=== PATIENT | female | born 1950 | race Caucasian/White ===

== ENCOUNTER 2017-01-07 14:35 | Inpatient (IN) | payer MEDICARE ==
[~2017-01-07] VITALS: Ht 165.1 cm; Wt 90.9 kg
[2017-01-07 14:37] VITALS: BP 146/65; PULSE 79; RESP 24; TEMP 98.6; O2SAT 97
--- NOTE | 2017-01-07 14:58 | PD ---
Physical Exam Time Seen by Provider: 14:57 Narrative 66 y/o female sent by pcp for low hemoglobin- 6.5. Vital signs reviewed. seen at triage desk. Awaiting bed placement. Data Data Last Documented VS Vital Signs Date Time Temp Pulse Resp B/P Pulse Ox O2 Delivery O2 Flow Rate FiO2 01/07/17 14:37 98.6 79 24 146/65 97 Room Air MDM Medical Record Reviewed: Yes Supervised Visit with REBEKA: Jose Person Jan 07, 2017 14:58
--- NOTE | 2017-01-07 17:38 | PD ---
HPI Chief Complaint: Abnormal Results Time Seen by Provider: 17:37 Travel History International Travel<30 days: No Contact w/Intl Traveler<30days: No Traveled to known affect area: No History of Present Illness HPI 66-year-old female with a history of rectal bleeding, anemia, COPD, CHF, hypertension, breast cancer presents to the emergency department for evaluation of low hemoglobin, sent by her primary care physician. Patient states she has a slowly correctly. She states they're unable to fix the Vee do major surgery and for a colostomy and. She states that she was getting iron transfusions. Her last iron transfusion was done in May 2016. She moved down here in [place] 2016 and has not had one since. She states that her last blood his seizure was July 2015. She states she feels dizzy and weak which has been ongoing for months. She states these are her typical symptoms of anemia. Patient is on oxygen, 2 L nasal cannula, chronically for COPD. patient does state she has had black stools for the past 2 days. PFSH Past Medical History Cardiovascular Problems: Yes Respiratory: Yes Social History Alcohol Use: No Tobacco Use: No Substance Use: No Allergies-Medications (Allergen,Severity, Reaction): Coded Allergies: Contrast Media (Verified Allergy, Severe, Anaphylaxis, 01/07/17) Reported Meds & Prescriptions Reported Meds & Active Scripts Active Reported Montelukast (Montelukast Sodium) 10 Mg Tab 10 Mg PO HS Lisinopril 20 Mg Tab 20 Mg PO DAILY Amlodipine (Amlodipine Besylate) 5 Mg Tab 5 Mg PO DAILY @ [address] (Duloxetine HCl) 30 Mg Capdr 30 Mg PO DAILY @ [address] (Duloxetine HCl) 60 Mg Capdr 60 Mg PO DAILY Quetiapine (Quetiapine Fumarate) 400 Mg Tab 400 Mg PO HS Lamotrigine 100 Mg Tab 100 Mg PO BID Pantoprazole (Pantoprazole Sodium) 40 Mg Tab 40 Mg PO BID Primidone 50 Mg Tab 50 Mg PO BID Anoro Ellipta Inh (Umeclidinium/Vilanterol) 62.5-25 Mcg/Act Aero 1 Puff INH DAILY Clonidine (Clonidine HCl) 0.1 Mg Tab 0.1 Mg PO DIRECTED PRN Simvastatin 40 Mg Tab 40 Mg PO HS Carvedilol 25 Mg Tab 25 Mg PO BID Review of Systems Except as stated in HPI: all other systems reviewed are Neg Physical Exam Narrative GENERAL: Well-nourished, well-developed female patient, afebrile. Patient is on 2 L O2 nasal cannula. SKIN: Focused skin assessment warm/dry. HEAD: Normocephalic. Atraumatic. EYES: No scleral icterus. No injection or drainage. NECK: Supple, trachea midline. No JVD or lymphadenopathy. CARDIOVASCULAR: Regular rate and rhythm without murmurs, gallops, or rubs. RESPIRATORY: Breath sounds equal bilaterally. No accessory muscle use. Lungs sounds are clear to auscultation. GASTROINTESTINAL: Abdomen soft, non-tender, nondistended. MUSCULOSKELETAL: No cyanosis, or edema. BACK: Nontender without obvious deformity. No CVA tenderness. RECTAL EXAM: No masses or tenderness, stool is brown. I was able to get a minimal sample. Hemoccult was slightly positive. This exam was done with ORLANDO Nguyen, at bedside. Data Data Last Documented VS Vital Signs Date Time Temp Pulse Resp B/P Pulse Ox O2 Delivery O2 Flow Rate FiO2 01/07/17 19:08 68 18 168/70 100 Room Air 01/07/17 18:16 3 01/07/17 14:37 98.6 Orders Complete Blood Count With Diff (01/07/17 17:34) Comprehensive Metabolic Panel (01/07/17 17:34) Prothrombin Time / Inr (Pt) (01/07/17 17:34) Act Partial Throm Time (Ptt) (01/07/17 17:34) Urinalysis - C+S If Indicated (01/07/17 17:34) Type And Screen (01/07/17 17:34) Chest, Single Ap (01/07/17 17:34) Ecg Monitoring (01/07/17 17:34) Iv Access Insert/Monitor (01/07/17 17:34) Oximetry (01/07/17 17:34) Red Blood Cells (Rbc) (01/07/17 18:39) Blood Product Administration .UPON TRANSFUSION (01/07/17 18:39) Sodium Chlor 0.9% 250 Ml Inj (Ns 250 Ml (01/07/17 18:45) Pantoprazole Inj (Protonix Inj) (01/07/17 18:45) Admit Order (Ed Use Only) (01/07/17 19:17) Diet Heart Healthy (01/07/17 Dinner) Labs Laboratory Tests Test 01/07/17 01/07/17 17:55 18:40 White Blood Count 7.0 TH/MM3 Red Blood Count 2.71 MIL/MM3 Hemoglobin 6.2 GM/DL Hematocrit 19.6 % Mean Corpuscular Volume 72.4 FL Mean Corpuscular Hemoglobin 22.9 PG Mean Corpuscular Hemoglobin 31.7 % Concent Red Cell Distribution Width 18.6 % Platelet Count 258 TH/MM3 Mean Platelet Volume 7.2 FL Neutrophils (%) (Auto) 64.1 % Lymphocytes (%) (Auto) 22.7 % Monocytes (%) (Auto) 10.3 % Eosinophils (%) (Auto) 2.1 % Basophils (%) (Auto) 0.8 % Neutrophils # (Auto) 4.5 TH/MM3 Lymphocytes # (Auto) 1.6 TH/MM3 Monocytes # (Auto) 0.7 TH/MM3 Eosinophils # (Auto) 0.1 TH/MM3 Basophils # (Auto) 0.1 TH/MM3 CBC Comment DIFF FINAL Differential Comment Prothrombin Time 11.0 SEC Prothromb Time International 1.0 RATIO Ratio Activated Partial 25.2 SEC Thromboplast Time Sodium Level 134 MEQ/L Potassium Level 4.4 MEQ/L Chloride Level 98 MEQ/L Carbon Dioxide Level 33.6 MEQ/L Anion Gap 2 MEQ/L Blood Urea Nitrogen 12 MG/DL Creatinine 0.77 MG/DL Estimat Glomerular Filtration 75 ML/MIN Rate Random Glucose 82 MG/DL Calcium Level 8.5 MG/DL Total Bilirubin 0.2 MG/DL Aspartate Amino Transf 10 U/L (AST/SGOT) Alanine Aminotransferase 12 U/L (ALT/SGPT) Alkaline Phosphatase 88 U/L Total Protein 6.9 GM/DL Albumin 3.4 GM/DL Urine Color LIGHT-YELLOW Urine Turbidity CLEAR Urine pH 6.5 Urine Specific [place] 1.009 Urine Protein NEG mg/dL Urine Glucose (UA) NEG mg/dL Urine Ketones NEG mg/dL Urine Occult Blood NEG Urine Nitrite NEG Urine Bilirubin NEG Urine Urobilinogen LESS THAN 2.0 MG/DL Urine Leukocyte Esterase NEG Urine RBC 1 /hpf Urine WBC 1 /hpf Urine Squamous Epithelial <1 /hpf Cells Microscopic Urinalysis Comment CULT NOT INDICATED MDM Medical Decision Making Medical Screen Exam Complete: Yes Emergency Medical Condition: Yes Medical Record Reviewed: Yes Interpretation(s) Last Impressions Chest X-Ray 01/07/17 4544 Signed Impressions: Service Date/Time: January 17:38 - CONCLUSION: 1. Left subclavian port, as above. 2. No acute cardiopulmonary disease. Rao Almazan MD Differential Diagnosis Anemia versus upper GI bleed versus lower GI bleed versus electrolyte abnormality Narrative Course 66-year-old female sent by her primary care physician for low hemoglobin presents to the emergency department. Patient reports history of GI bleed. She was on iron transfusions, but has not had one since May 2016 due to moving. CBC shows hemoglobin 6.2, hematocrit 19.6. CMP shows no acute abnormality. Coags are unremarkable. UA is negative for infection. Chest x- ray shows left subclavian port, as above; No acute cardiopulmonary disease. Patient is given Protonix 40 mg IV. 2 units PRBCs are ordered and pending. Dr. Cason accepted admission. [facility] Point of Care Internal Pos. & Neg. Controls: Passed Fecal Specimen Occult Blood: Positive Diagnosis Primary Impression: Symptomatic anemia Additional Impression: GI bleed Qualified Code: K92.2 - Gastrointestinal hemorrhage, unspecified gastrointestinal hemorrhage type Admitting Information Admitting Physician Requests: Admit Indu Forbes Jan 07, 2017 17:38
--- NOTE | 2017-01-07 18:05 | RADRPT ---
EXAM DATE/TIME: 01/07/2017 17:38 [facility] COMPARISON: No previous studies available for comparison. INDICATIONS : Abnormal labwork. Patient short of breath. MEDICAL HISTORY : Chronic obstructive pulmonary disease. SURGICAL HISTORY : Port. ENCOUNTER: Initial ACUITY: 1 day PAIN SCORE: 0/10 LOCATION: Bilateral chest FINDINGS: Left subclavian [id number] which appears looped in the region of the central subclavian vein with tip projecting at the junction of the subclavian and SVC. No focal pleural or parenchymal opacities. Cardiomediastinal contours are within normal limits given portable technique. Surgical clips in the r ight axilla. Bony thorax is intact CONCLUSION: 1. Left subclavian port, as above. 2. No acute cardiopulmonary disease. Rao Almazan MD on January 07, 2017 at 18:02 Board Certified Radiologist. This report was verified electronically.
[2017-01-07 18:13] LABS: AUTOMATED NEUTROPHIL # 4.5 TH/MM3 (1.8-7.7); BASOPHIL # 0.1 TH/MM3 (0-0.2); BASOPHIL % 0.8 % (0.0-2.0); EOSINOPHIL # 0.1 TH/MM3 (0-0.4); EOSINOPHIL % 2.1 % (0.0-4.0); LYMPH % 22.7 % (9.0-44.0); LYMPHOCYTE # 1.6 TH/MM3 (1.0-4.8); MEAN CELL VOLUME 72.4 FL (80.0-100.0); MEAN CORPUSCULAR HEMOGLOBIN 22.9 PG (27.0-34.0); MEAN CORPUSCULAR HGB CONC 31.7 % (32.0-36.0); MONO % 10.3 % (0.0-8.0); NEUT % 64.1 % (16.0-70.0); PLATELET COUNT 258 TH/MM3 (150-450); RED BLOOD COUNT 2.71 MIL/MM3 (4.00-5.30); RED CELL DISTRIBUTION WIDTH 18.6 % (11.6-17.2)
[2017-01-07 18:16] VITALS: O2SAT 99
[2017-01-07 18:21] LABS: HEMO FLAGS DIFF FINAL
[2017-01-07 18:24] LABS: APTT (PATIENT) 25.2 SEC (24.3-30.1)
[2017-01-07 18:26] LABS: ANION GAP 2 MEQ/L (5-15); AST (GOT) 10 U/L (15-37); BICARBONATE 33.6 MEQ/L (21.0-32.0); BLOOD UREA NITROGEN 12 MG/DL (7-18); CHLORIDE 98 MEQ/L (98-107); GLOMERULAR FILTRATION RATE 75 ML/MIN (>89); POTASSIUM 4.4 MEQ/L (3.5-5.1); SODIUM (NA) 134 MEQ/L (136-145)
[2017-01-07 18:27] LABS: ALT (GPT) 12 U/L (10-53)
[2017-01-07] MEDS ORDERED: SIMV40TA PO (18:27)
[2017-01-07] MEDS ORDERED: DULO1CAP2 PO (18:27)
[2017-01-07] MEDS ORDERED: QUET1TAB11 PO (18:27)
[2017-01-07] MEDS ORDERED: CLON0.1T PO (18:27)
[2017-01-07] MEDS ORDERED: DULO1CAP3 PO (18:27)
[2017-01-07] MEDS ORDERED: UMEC1AER INH (18:27)
[2017-01-07] MEDS ORDERED: LAMO100T PO (18:27)
[2017-01-07] MEDS ORDERED: AMLO5TAB2 PO (18:27)
[2017-01-07] MEDS ORDERED: PRIM50TA5 PO (18:27)
[2017-01-07] MEDS ORDERED: PANT40TA3 PO (18:27)
[2017-01-07] MEDS ORDERED: CARV25TA PO (18:27)
[2017-01-07 18:28] LABS: HEMATOCRIT 19.6 % (35.0-46.0)
[2017-01-07 18:29] LABS: ALKALINE PHOSPHATASE 88 U/L (45-117); TOTAL BILIRUBIN ADULT 0.2 MG/DL (0.2-1.0)
[2017-01-07] MEDS ORDERED: LISI-515 PO (18:31)
[2017-01-07] MEDS ORDERED: MONT10TA4 PO (18:31)
[2017-01-07] MEDS ORDERED: SODIUM CHLOR 0.9% 250 ML INJ 250 ML IV ONE (18:45)
[2017-01-07] MEDS ORDERED: PANTOPRAZOLE SODIUM 40 MG VIAL IV PUSH ONE (18:45)
[2017-01-07 19:08] VITALS: BP 168/70; PULSE 68; RESP 18; O2SAT 100
[2017-01-07 19:11] LABS: BLOOD, URINE NEG (NEG); GLUCOSE,URINE NEG (NEG); KETONE, URINE NEG (NEG); NITRITE,URINE NEG (NEG); PH, URINE 6.5 (5.0-8.5); SQUAMOUS EPITHELIAL CELL URINE <1 /hpf (0-5); URINE COLOR LIGHT-YELLOW (YELLW/STRAW)
[2017-01-07 19:28] LABS: COMMENT (UR) CULT NOT INDICATED; CULTURE IF INDICATED CULT NOT INDICATED
[2017-01-07] MEDS ORDERED: LACTULOSE SYRUP 20 GM/30 ML CUP PO PRN (19:30)
[2017-01-07] MEDS ORDERED: ACETAMINOPHEN/HYDROcodone 325 MG/5 MG TAB PO PRN (19:30)
[2017-01-07] MEDS ORDERED: ACETAMINOPHEN 325 MG TAB PO PRN (19:30)
[2017-01-07] MEDS ORDERED: SENNOSIDES 8.6 MG TAB PO PRN (19:30)
[2017-01-07] MEDS ORDERED: BISACODYL 10 MG SUPP RECTAL PRN (19:30)
[2017-01-07] MEDS ORDERED: ONDANSETRON HCL 4 MG/2 ML VIAL IVP PRN (19:30)
[2017-01-07] MEDS ORDERED: SODIUM CHLORIDE 0.9% FLUSH 10 ML FLUSH IV FLUSH PRN (19:30)
[2017-01-07] MEDS ORDERED: MAGNESIUM HYDROXIDE SUSP 30 ML CUP PO PRN (19:30)
--- NOTE | 2017-01-07 19:34 | HHI.HP ---
[facility] Casey Corbett, Admission Diagnosis anemia, GI bleed Diagnoses: (1) GI bleed Diagnosis: Principal (2) Symptomatic anemia Diagnosis: Principal (3) Dehydration Diagnosis: Principal (4) COPD (chronic obstructive pulmonary disease) Diagnosis: Principal (5) HTN (hypertension) Diagnosis: Principal Travel History International Travel<30 Days: No Contact w/Intl Traveler <30 Da: No Traveled to Known Affected Are: No History of Present Illness This is a 66-year-old female with a PMH of HTN, Bipolar Disorder, COPD, O2 Dependent, CHF (Unknown EF), Breast CA, h/o GI Bleed, Chronic Anemia and Diverticulitis who was sent to the ER by her PCP secondary to Hgb 6.2. Pt without complaints at this time except reports dark stool x2-3 days. Recently moved to [facility] from [place], was following w/ GI and Hematology for h/o GI Bleed and Anemia. S/p EGD/Colonoscopy and Pill Endoscopy in the past, however states no clear source of bleed was ever identified, thought to have bleed secondary to recurrent Colitis, s/p multiple transfusions and receiving IV Iron , last infusion May 2016. No further infusions since then, on Iron PO. On arrival, BP 146/65, HR 79, O2 sat 97% on RA, Afebrile. Hgb 6.2. GFR 75. INR 1.0. UA negative. CXR left subclavian port, no acute findings. + Hemoccult on exam. S/p Protonix IV x1, 2u pRBC ordered in ER, pending transfusion. Review of Systems Except as stated in HPI: all other systems reviewed are Neg ROS: 14 point review of systems otherwise negative. Past Family Social History Past Medical History PMH: HTN, COPD, O2 Dependent, Bipolar Disorder, CHF (Unknown EF), Breast CA, h/ o GI Bleed, Chronic Anemia and Diverticulitis Past Surgical History PAST SURGICAL HISTORY: Tonsillectomy, Cholecystectomy, Tubal Ligation, Bilateral Hip Replacement Allergies: Coded Allergies: Contrast Media (Verified Allergy, Severe, Anaphylaxis, 01/07/17) Family History PAST FAMILY HISTORY: Reviewed. No h/o DM or CAD Social History PAST SOCIAL HISTORY: Negative for alcohol, tobacco or drugs. Physical Exam Vital Signs Vital Signs Date Time Temp Pulse Resp B/P Pulse Ox O2 Delivery O2 Flow Rate FiO2 01/07/17 19:08 68 18 168/70 100 Room Air 01/07/17 18:16 99 Nasal Cannula 3 01/07/17 18:16 66 22 97 Nasal Cannula 3 01/07/17 14:37 98.6 79 24 146/65 97 Room Air Physical Exam PE: GENERAL: Very pleasant middle-aged white female in no acute distress. Daughter at bedside. HEENT: PERRLA, EOMI. No scleral icterus or conjunctival pallor. No lid lag or facial droop. CARDIOVASCULAR: Regular rate and rhythm. No obvious murmurs to auscultation. No chest tenderness to palpation. RESPIRATORY: No obvious rhonchi or wheezing. Clear to auscultation. Breath sounds equal bilaterally. GASTROINTESTINAL: Abdomen soft, non-tender, nondistended. BS normal. MUSCULOSKELETAL: Extremities without clubbing, cyanosis, or edema. No obvious deformities. NEUROLOGICAL: Awake, alert and oriented x4. No focal neurologic deficits. Moving both upper and lower extremities spontaneously. Laboratory Laboratory Tests Test 01/07/17 01/07/17 17:55 18:40 White Blood Count 7.0 Red Blood Count 2.71 Hemoglobin 6.2 Hematocrit 19.6 Mean Corpuscular Volume 72.4 Mean Corpuscular Hemoglobin 22.9 Mean Corpuscular Hemoglobin 31.7 Concent Red Cell Distribution Width 18.6 Platelet Count 258 Mean Platelet Volume 7.2 Neutrophils (%) (Auto) 64.1 Lymphocytes (%) (Auto) 22.7 Monocytes (%) (Auto) 10.3 Eosinophils (%) (Auto) 2.1 Basophils (%) (Auto) 0.8 Neutrophils # (Auto) 4.5 Lymphocytes # (Auto) 1.6 Monocytes # (Auto) 0.7 Eosinophils # (Auto) 0.1 Basophils # (Auto) 0.1 CBC Comment DIFF FINAL Differential Comment Prothrombin Time 11.0 Prothromb Time International 1.0 Ratio Activated Partial 25.2 Thromboplast Time Sodium Level 134 Potassium Level 4.4 Chloride Level 98 Carbon Dioxide Level 33.6 Anion Gap 2 Blood Urea Nitrogen 12 Creatinine 0.77 Estimat Glomerular Filtration 75 Rate Random Glucose 82 Calcium Level 8.5 Total Bilirubin 0.2 Aspartate Amino Transf 10 (AST/SGOT) Alanine Aminotransferase 12 (ALT/SGPT) Alkaline Phosphatase 88 Total Protein 6.9 Albumin 3.4 Urine Color LIGHT-YELLOW Urine Turbidity CLEAR Urine pH 6.5 Urine Specific [place] 1.009 Urine Protein NEG Urine Glucose (UA) NEG Urine Ketones NEG Urine Occult Blood NEG Urine Nitrite NEG Urine Bilirubin NEG Urine Urobilinogen LESS THAN 2.0 Urine Leukocyte Esterase NEG Urine RBC 1 Urine WBC 1 Urine Squamous Epithelial <1 Cells Microscopic Urinalysis Comment CULT NOT INDICATED Result Diagram: 01/07/17175401/07/171754 Assessment and Plan Problem List: (1) GI bleed ICD Code: K92.2 Status: Acute (2) Symptomatic anemia ICD Code: D64.9 Status: Acute (3) Dehydration ICD Code: E86.0 Status: Acute (4) COPD (chronic obstructive pulmonary disease) ICD Code: J44.9 Status: Acute (5) HTN (hypertension) ICD Code: I10 Status: Acute Assessment and Plan A/P: 1. GI Bleed: H/o GI Bleed, +melena x2-3 days, +Hemoccult on exam, Hgb 6.2. S/ p Protonix IV x1 in ER, 2u pRBC ordered, pending transfusion. Start Protonix gtt. Consult GI, check Hgb/Hct after transfusion. 2. Anemia: H/o Chronic Anemia requiring transfusion/Iron infusions in the past , currently on PO Iron. Hgb 6.2 as above, previously following w/ Hematology in [place]. Will need to establish care w/ Hematology here. Monitor Hgb/Hct. 3. Dehydration: GFR 75. Check U/a. IVF for hydration, repeat labs in am. 4. COPD: Chronic Respiratory Failure. Stable. O2 Dependent, on 2L NC, will continue. Resume home medications. DuoNeb prn. 5. HTN: BP 140-160's while in ER, resume home medications. Monitor BP. 6. DVT Prophylaxis: SCD/Teds. Pharmacologic contraindication secondary to GI Bleed 7. Social work for d/c planning as needed. 8. Case discussed w/ ER physician at length. Physician Certification 2 Midnight Certification Type: Admission for Inpatient Services Order for Inpatient Services The services are ordered in accordance with Medicare regulations or non- Medicare payer requirements, as applicable. In the case of services not specified as inpatient-only, they are appropriately provided as inpatient services in accordance with the 2-midnight benchmark. Estimated LOS (days): 2 days is the estimated time the patient will need to remain in the hospital, assuming treatment plan goals are met and no additional complications. Post-Hospital Plan: Not yet determined Problem Qualifiers (1) GI bleed: Qualified Code: K92.2 - Gastrointestinal hemorrhage, unspecified gastrointestinal hemorrhage type Afia Cason MD Jan 07, 2017 19:34
[2017-01-07 20:20] VITALS: BP 171/67; PULSE 75; RESP 18; O2SAT 100
[2017-01-07] MEDS: SODIUM CHLORIDE 0.9% FLUSH 10 ML FLUSH IV FLUSH SCH (21:00)
[2017-01-07 21:10] VITALS: BP 169/74; PULSE 69; RESP 18; TEMP 98.1; O2SAT 100
[2017-01-07 21:25] VITALS: BP 167/72; PULSE 70; RESP 18; TEMP 98.4; O2SAT 100
[2017-01-08] VITALS (12 sets, daily range): BP systolic 94–182; BP diastolic 55–104; PULSE 57–82; RESP 16–20; TEMP 97.3–98.4; O2SAT 95–100
[2017-01-08] MEDS: DOCUSATE SODIUM 50 MG/SENNA 8.6 MG TAB PO SCH ×3 (00:08→21:00)
[2017-01-08] MEDS: PRAVASTATIN SOD 80 MG TAB PO SCH ×2 (00:08→21:46)
[2017-01-08] MEDS: CARVEDILOL 12.5 MG TAB PO SCH ×3 (00:08→21:46)
[2017-01-08] MEDS: lamoTRIgine 100 MG TAB PO SCH ×3 (00:08→21:46)
[2017-01-08] MEDS: MONTELUKAST SODIUM 10 MG TAB PO SCH ×2 (00:08→21:46)
[2017-01-08] MEDS: PANTOPRAZOLE INJ 80 MG in SODIUM CHLORIDE 0.9% INJ 100 ML IV SCH ×3 (00:33→16:37)
[2017-01-08] MEDS: QUEtiapine FUMARATE 200 MG TAB PO SCH ×2 (00:34→21:46)
[2017-01-08] MEDS: PRIMIDONE 50 MG TAB PO SCH ×3 (00:34→21:46)
[2017-01-08 08:54] LABS: AUTOMATED NEUTROPHIL # 5.2 TH/MM3 (1.8-7.7); BASOPHIL # 0.1 TH/MM3 (0-0.2); BASOPHIL % 0.6 % (0.0-2.0); EOSINOPHIL # 0.2 TH/MM3 (0-0.4); HEMATOCRIT 26.3 % (35.0-46.0); HEMO FLAGS DIFF FINAL; LYMPH % 22.6 % (9.0-44.0); LYMPHOCYTE # 1.8 TH/MM3 (1.0-4.8); MEAN CELL VOLUME 76.1 FL (80.0-100.0); MEAN CORPUSCULAR HGB CONC 32.8 % (32.0-36.0); MONO % 10.7 % (0.0-8.0); NEUT % 64.1 % (16.0-70.0); PLATELET COUNT 241 TH/MM3 (150-450); RED BLOOD COUNT 3.45 MIL/MM3 (4.00-5.30); RED CELL DISTRIBUTION WIDTH 20.1 % (11.6-17.2); WHITE BLOOD COUNT 8.1 TH/MM3 (4.0-11.0)
[2017-01-08] MEDS: UMECLIDINIUM 62.5 MCG/VILANTEROL 25 MCG INHALER INH SCH (09:00)
[2017-01-08 09:14] LABS: ANION GAP 6 MEQ/L (5-15); AST (GOT) 11 U/L (15-37); BICARBONATE 33.4 MEQ/L (21.0-32.0); BLOOD UREA NITROGEN 13 MG/DL (7-18); CHLORIDE 98 MEQ/L (98-107); GLOMERULAR FILTRATION RATE 82 ML/MIN (>89); POTASSIUM 4.1 MEQ/L (3.5-5.1); SODIUM (NA) 137 MEQ/L (136-145)
[2017-01-08 09:17] LABS: ALKALINE PHOSPHATASE 84 U/L (45-117); ALT (GPT) 12 U/L (10-53); TOTAL BILIRUBIN ADULT 0.4 MG/DL (0.2-1.0)
--- NOTE | 2017-01-08 10:36 | PD.CONS ---
HPI History of Present Illness This is a 66 year old female who recently located from [place] to this area and is in the process of getting established with gastroenterology, pulmonology , and hematology. She reports that she has a long history of intermittent GI bleeding consisting of melena. She has had an extensive workup in the past including EGD, colonoscopy, and capsule endoscopy. She states that her boot and shoe repairman feels that she has a slow bleed, likely related to ischemic colitis. She was referred to the ER for further evaluation of severe anemia by her primary care provider yesterday. On arrival to the ER she was noted to have an H&H of 6.2/19.6 with MCV 72.4, MCHC 31.7. She reports that she does have intermittent melena, but denies any hematochezia with red blood. She reports her appetite is good and she has not lost any weight. She does have a long history of GERD and states that if she does not take her Protonix with twice a day dosing she will have daily symptoms. However it is well controlled as long as she takes her PPI. She denies any abdominal pain. She does have occasional constipation and reports that she takes daily MiraLAX and that this is well controlled. She is not on any blood thinners and does not usually take NSAIDs although she will occasionally take 1 ibuprofen if she has a headache. She reports that she last had a capsule endoscopy and a colonoscopy last year in [place]. Her last EGD was prior to that. (Ashley Ball) PFSH Past Medical History HTN COPD, O2 Dependent Bipolar Disorder CHF Breast CA Hx chronic GI Bleed Chronic Anemia Diverticulitis Ischemic colitis Past Surgical History Tonsillectomy Cholecystectomy Tubal Ligation Bilateral Hip Replacement (Ashley Ball) Coded Allergies: Contrast Media (Verified Allergy, Severe, Anaphylaxis, 01/07/17) Medications Allergies Coded Allergies Type Severity Reaction Last Updated Verified Contrast Media Allergy Severe Anaphylaxis 01/07/17 Yes Active Scripts Medications Dose Route/Sig Days Date Category Montelukast (Montelukast Sodium) 10 Mg Tab 10 Mg PO HS 01/07/17 Reported Lisinopril 20 Mg Tab 20 Mg PO DAILY 01/07/17 Reported Amlodipine (Amlodipine Besylate) 5 Mg Tab 5 Mg PO DAILY @ 1200 01/07/[address] (Duloxetine HCl) 30 Mg Capdr 30 Mg PO DAILY @ 1200 01/07/[address] (Duloxetine HCl) 60 Mg Capdr 60 Mg PO DAILY 01/07/17 Reported Quetiapine (Quetiapine Fumarate) 400 Mg Tab 400 Mg PO HS 01/07/17 Reported Lamotrigine 100 Mg Tab 100 Mg PO BID 01/07/17 Reported Pantoprazole (Pantoprazole Sodium) 40 Mg Tab 40 Mg PO BID 01/07/17 Reported Primidone 50 Mg Tab 50 Mg PO BID 01/07/17 Reported Anoro Ellipta Inh (Umeclidinium/Vilanterol) 62.5-25 Mcg/Act Aero 1 Puff INH DAILY 01/07/17 Reported Clonidine (Clonidine HCl) 0.1 Mg Tab 0.1 Mg PO DIRECTED PRN 01/07/17 Reported Simvastatin 40 Mg Tab 40 Mg PO HS 01/07/17 Reported Carvedilol 25 Mg Tab 25 Mg PO BID 01/07/17 Reported Family History Noncontributory Social History Quit smoking 4 months ago Occasional ETOH use (Ashley Ball) Review of Systems Constitutional: COMPLAINS OF: Fatigue, DENIES: Fever, Weight loss, Chills, Change in appetite Respiratory: COMPLAINS OF: Cough, Shortness of breath Cardiovascular: DENIES: Chest pain Gastrointestinal: COMPLAINS OF: Black stools, Constipation, Heartburn, DENIES : Abdominal pain, Bloody stools, Diarrhea, Nausea, Vomiting, Swelling of Abdomen , Hematemesis Integumentary: DENIES: Rash Hematologic/lymphatic: DENIES: Bruising Neurologic: COMPLAINS OF: Headache Psychiatric: DENIES: Confusion (Ashley Ball) GI Exam Vitals I&O Vital Signs Date Time Temp Pulse Resp B/P Pulse Ox O2 Delivery O2 Flow Rate FiO2 01/08/17 08:00 97.4 63 20 130/69 97 01/08/17 04:00 98.0 66 16 126/60 96 01/08/17 04:00 Nasal Cannula 2.00 01/08/17 00:42 Nasal Cannula 2.00 01/08/17 00:42 97.3 74 18 170/80 95 01/08/17 00:25 98.1 72 20 182/80 98 01/08/17 00:00 98.1 71 20 176/79 98 01/07/17 21:25 98.4 70 18 167/72 100 Room Air 3 01/07/17 21:10 98.1 69 18 169/74 100 Nasal Cannula 3 01/07/17 20:20 75 18 171/67 100 Nasal Cannula 3 01/07/17 19:08 68 18 168/70 100 Room Air 01/07/17 18:16 99 Nasal Cannula 3 01/07/17 18:16 66 22 97 Nasal Cannula 3 01/07/17 14:37 98.6 79 24 146/65 97 Room Air I/O 01/07/17 01/07/17 01/07/17 01/08/17 01/08/17 01/08/17 07:00 15:00 23:00 07:00 15:00 23:00 Intake Total 1178 ml Balance 1178 ml Intake Oral 340 ml IV Total 238 ml Packed Cells 600 ml # Voids 2 # Bowel Movements 2 Imaging Last Impressions Chest X-Ray 01/07/17 6454 Signed Impressions: Service Date/Time: January 17:38 - CONCLUSION: 1. Left subclavian port, as above. 2. No acute cardiopulmonary disease. Rao Almazan MD Laboratory Test 01/07/17 01/07/17 01/07/17 01/07/17 17:55 18:40 18:50 20:21 White Blood Count 7.0 TH/MM3 Red Blood Count 2.71 MIL/MM3 Hemoglobin 6.2 GM/DL Hematocrit 19.6 % Mean Corpuscular Volume 72.4 FL Mean Corpuscular Hemoglobin 22.9 PG Mean Corpuscular Hemoglobin 31.7 % Concent Red Cell Distribution Width 18.6 % Platelet Count 258 TH/MM3 Mean Platelet Volume 7.2 FL Neutrophils (%) (Auto) 64.1 % Lymphocytes (%) (Auto) 22.7 % Monocytes (%) (Auto) 10.3 % Eosinophils (%) (Auto) 2.1 % Basophils (%) (Auto) 0.8 % Neutrophils # (Auto) 4.5 TH/MM3 Lymphocytes # (Auto) 1.6 TH/MM3 Monocytes # (Auto) 0.7 TH/MM3 Eosinophils # (Auto) 0.1 TH/MM3 Basophils # (Auto) 0.1 TH/MM3 CBC Comment DIFF FINAL Differential Comment Prothrombin Time 11.0 SEC Prothromb Time International 1.0 RATIO Ratio Activated Partial 25.2 SEC Thromboplast Time Sodium Level 134 MEQ/L Potassium Level 4.4 MEQ/L Chloride Level 98 MEQ/L Carbon Dioxide Level 33.6 MEQ/L Anion Gap 2 MEQ/L Blood Urea Nitrogen 12 MG/DL Creatinine 0.77 MG/DL Estimat Glomerular Filtration 75 ML/MIN Rate Random Glucose 82 MG/DL Calcium Level 8.5 MG/DL Total Bilirubin 0.2 MG/DL Aspartate Amino Transf 10 U/L (AST/SGOT) Alanine Aminotransferase 12 U/L (ALT/SGPT) Alkaline Phosphatase 88 U/L Total Protein 6.9 GM/DL Albumin 3.4 GM/DL Crossmatch Leukocyte-Reduced Red Blood Cells Blood Bank Comment Urine Color LIGHT-YELLOW Urine Turbidity CLEAR Urine pH 6.5 Urine Specific [place] 1.009 Urine Protein NEG mg/dL Urine Glucose (UA) NEG mg/dL Urine Ketones NEG mg/dL Urine Occult Blood NEG Urine Nitrite NEG Urine Bilirubin NEG Urine Urobilinogen LESS THAN 2.0 MG/DL Urine Leukocyte Esterase NEG Urine RBC 1 /hpf Urine WBC 1 /hpf Urine Squamous Epithelial <1 /hpf Cells Microscopic Urinalysis Comment CULT NOT INDICATED Blood Type O POSITIVE O POSITIVE Antibody Screen NEGATIVE Test 01/08/17 07:15 White Blood Count 8.1 TH/MM3 Red Blood Count 3.45 MIL/MM3 Hemoglobin 8.6 GM/DL Hematocrit 26.3 % Mean Corpuscular Volume 76.1 FL Mean Corpuscular Hemoglobin 25.0 PG Mean Corpuscular Hemoglobin 32.8 % Concent Red Cell Distribution Width 20.1 % Platelet Count 241 TH/MM3 Mean Platelet Volume 7.6 FL Neutrophils (%) (Auto) 64.1 % Lymphocytes (%) (Auto) 22.6 % Monocytes (%) (Auto) 10.7 % Eosinophils (%) (Auto) 2.0 % Basophils (%) (Auto) 0.6 % Neutrophils # (Auto) 5.2 TH/MM3 Lymphocytes # (Auto) 1.8 TH/MM3 Monocytes # (Auto) 0.9 TH/MM3 Eosinophils # (Auto) 0.2 TH/MM3 Basophils # (Auto) 0.1 TH/MM3 CBC Comment DIFF FINAL Differential Comment Sodium Level 137 MEQ/L Potassium Level 4.1 MEQ/L Chloride Level 98 MEQ/L Carbon Dioxide Level 33.4 MEQ/L Anion Gap 6 MEQ/L Blood Urea Nitrogen 13 MG/DL Creatinine 0.71 MG/DL Estimat Glomerular Filtration 82 ML/MIN Rate Random Glucose 89 MG/DL Calcium Level 8.5 MG/DL Total Bilirubin 0.4 MG/DL Aspartate Amino Transf 11 U/L (AST/SGOT) Alanine Aminotransferase 12 U/L (ALT/SGPT) Alkaline Phosphatase 84 U/L Total Protein 6.7 GM/DL Albumin 3.2 GM/DL Physical Examination HEENT: Normocephalic; atraumatic; no jaundice. CHEST: CTA, diminished. O2 via n/c CARDIAC: RRR ABDOMEN: Soft, nondistended, nontender; no hepatosplenomegaly; bowel sounds are present in all four quadrants. EXTREMITIES: No clubbing, cyanosis, or edema. SKIN: Normal; no rash; no jaundice. NECK SKEWER: No focal deficits; alert and oriented times three. (Ashley Ball) Assessment and Plan Plan ASSESSMENT: - GIB, Melena. Recently relocated from [place]. She has a long history of GI blood loss and has had extensive GI workup in the past. He was thought that she had a slow bleed secondary to ischemic colitis in the past. She reports that last year she had a colonoscopy and a capsule endoscopy in the source of her bleeding was sent identified. Prior to that she was evaluated with an EGD. She denies any history of peptic ulcer disease. She has not blood thinners. She does have GERD and takes Protonix with twice a day dosing and states if she goes down to once a day or skips a dose she will have daily symptoms. She has occasional constipation and takes MiraLAX for this. NPO. Will plan for EGD today. Protonix Gtt. - Severe anemia, microcytic, hypochromic. Hx of chronic anemia and is in the process of finding a color consultant here locally since she moved from [place]. H&H 6.2/19.6, MCV 72.4, MCHC 31.7 on admission. S/P 2 units PRBC. HH 8.6/ 26.3. - GERD. PPI - Constipation, takes Miralax at home. - Hx ischemic colitis, diverticulitis. No abdominal pain or red blood in stool - COPD, ELENA, HTN, CHF, Hx breast cancer per attending PLAN: - Plan for EGD today - Obtain consents - Nothing by mouth - Protonix Gtt - Monitor H&H - Transfuse as necessary - Iron studies - Supportive care - Further recommendations to follow based on results of above - Patient seen and examined by Dr. Xie and myself and this note is written on her behalf (Ashley Ball) Physician Comments seen, examined agree with above obtain records consult hematology bleeding scan if egd negative (Lianne Xie MD) Ashley Ball Jan 08, 2017 10:36 Lianne Xie MD Jan 08, 2017 11:12
[2017-01-08] MEDS ORDERED: PROPOFOL 200 MG/20 ML AMP IV PUSH ONE (11:00)
--- NOTE | 2017-01-08 11:17 | GIPROC ---
[facility] [address] [facility], [address] EGD PROCEDURE REPORT EXAM DATE: 01/08/2017 PATIENT NAME: Raisa Retana MR #: [id number] BIRTHDATE: 1950 ATTENDING: Lianne Xie MD ORDER #: [id number] CHIEF UNDERWRITER: Tamara Hutson and Junior Schrader STATUS: inpatient INDICATIONS: The patient is a 66 yr old female here for an EGD due to anemia, gi bleeding PROCEDURE PERFORMED: EGD w/ biopsy MEDICATIONS: None and Per Anesthesia. TOPICAL ANESTHETIC: CONSENT: The patient understands the risks and benefits of the procedure and understands that these risks include, but are not limited to: sedation, allergic reaction, infection, perforation and/or bleeding. Alternative means of evaluation and treatment include, among others: physical exam, x-rays, and/or surgical intervention. The patient elects to proceed with this endoscopic procedure. medical equipment was checked for proper function. Hand hygiene and appropriate measures for infection prevention was taken. After the risks, benefits and alternatives of the procedure were thoroughly explained, Informed consent was verified, confirmed and timeout was successfully executed by the treatment team. The patient was anesthetized with topical anesthesia and the Pentax EG-[id number] endoscope was introduced through the mouth and advanced to the second portion of the duodenum. Retroflexed views revealed a hiatal hernia The gastroscope was then slowly withdrawn and removed. Gastritis antrum-biopsy short segment Ashton's -biopsy duodenum normal-biopsy r/o celiac. ADVERSE EVENTS: There were no complications. IMPRESSIONS: 1. Gastritis antrum-biopsy short segment Ashton's -biopsy duodenum normal-biopsy r/o celiac 2. Retroflexed views revealed a hiatal hernia RECOMMENDATIONS: 1. Anti-reflux regimen 2. Continue PPI 3. Avoid NSAIDS 4. Bleeding scan obtain records hematology consult-may need iron infusion PATIENT CONDITION: stable DISPOSITION: Inpatient REPEAT EXAM: EGD pending biopsy results Lianne Xie MD eSigned: Lianne Xie MD 01/08/2017 11:16 AM cc: PATIENT NAME: Raisa Retana MR#: [id number]
[2017-01-08] MEDS ORDERED: PHENYLEPH/NS 1000 MCG/10 ML SYR IV ONE (12:00)
[2017-01-08] MEDS: DULoxetine HCl DR 30 MG CAP PO SCH (12:00)
[2017-01-08] MEDS: MORPHINE SULFATE 4 MG/ML INJ IV PRN ×2 (12:08→21:47)
[2017-01-08] MEDS: DULoxetine HCl DR 60 MG CAP PO SCH (12:08)
[2017-01-08] MEDS: SODIUM CHLORIDE 0.9% FLUSH 10 ML FLUSH IV FLUSH SCH ×2 (12:09→21:46)
[2017-01-08] MEDS: amLODIPine BESYLATE 5 MG TAB PO SCH (12:09)
[2017-01-08] MEDS: LISINOPRIL 20 MG TAB PO SCH (14:00)
--- NOTE | 2017-01-08 14:23 | HHI.PR ---
Subjective Remarks Follow up GI bleed. Patient seen and examined. Sitting up in bed comfortably. Just returned from bleeding scan. Denies any new acute changes. Pain well controlled, minimal abdominal tenderness. Afebrile. BP elevated today. Requesting to eat. Objective Vitals Vital Signs Date Time Temp Pulse Resp B/P Pulse Ox O2 Delivery O2 Flow Rate FiO2 01/08/17 11:47 Nasal Cannula 2 01/08/17 11:42 97.9 64 20 179/76 100 188/80 01/08/17 11:19 98.4 63 20 171/78 97 171/78 01/08/17 11:16 Nasal Cannula 2 01/08/17 09:00 57 01/08/17 08:00 97.4 63 20 130/69 97 01/08/17 04:00 98.0 66 16 126/60 96 01/08/17 04:00 Nasal Cannula 2.00 01/08/17 00:42 Nasal Cannula 2.00 01/08/17 00:42 97.3 74 18 170/80 95 01/08/17 00:25 98.1 72 20 182/80 98 01/08/17 00:00 98.1 71 20 176/79 98 01/07/17 21:25 98.4 70 18 167/72 100 Room Air 3 01/07/17 21:10 98.1 69 18 169/74 100 Nasal Cannula 3 01/07/17 20:20 75 18 171/67 100 Nasal Cannula 3 01/07/17 19:08 68 18 168/70 100 Room Air 01/07/17 18:16 99 Nasal Cannula 3 01/07/17 18:16 66 22 97 Nasal Cannula 3 01/07/17 14:37 98.6 79 24 146/65 97 Room Air I/O 01/07/17 01/07/17 01/07/17 01/08/17 01/08/17 01/08/17 07:00 15:00 23:00 07:00 15:00 23:00 Intake Total 1178 ml 220 ml Balance 1178 ml 220 ml Intake Oral 340 ml 220 ml IV Total 238 ml Packed Cells 600 ml # Voids 2 # Bowel Movements 2 Result Diagram: 01/08/17 0715 01/08/17 0715 Imaging Last Impressions GI Bleed Scan Nuclear Medicine 01/08/17 0000 Signed Impressions: Service Date/Time: Sunday, January 08, 2017 13:33 - CONCLUSION: No GI bleeding is visualized. Examination is within normal limits. Jamari Lenz MD Chest X-Ray 01/07/17 0576 Signed Impressions: Service Date/Time: January 17:38 - CONCLUSION: 1. Left subclavian port, as above. 2. No acute cardiopulmonary disease. Rao Almazan MD Objective Remarks GENERAL: Well-developed, well-nourished female patient sitting in bed in [facility]. SKIN: Warm and dry. No rash. HEENT: Atraumatic. Normocephalic. Pupils equal and round. No scleral icterus. No injection or drainage. No nasal bleeding or discharge. Mucous membranes pink and moist. NECK: Trachea midline. No JVD. CARDIOVASCULAR: Regular rate and rhythm. Aortic murmur appreciated. RESPIRATORY: No accessory muscle use. Clear to auscultation. Breath sounds equal bilaterally. GASTROINTESTINAL: Abdomen soft, nondistended. Slight tenderness to bilateral lower quadrants. Hepatic and splenic margins not palpable. MUSCULOSKELETAL: Extremities without clubbing, cyanosis, or edema. No obvious deformities. NEUROLOGICAL: Awake and alert. No obvious cranial nerve deficits. Motor grossly within normal limits. Five out of 5 muscle strength in the arms and legs. Normal speech. PSYCHIATRIC: Appropriate mood and affect; insight and judgment normal. A/P Problem List: (1) GI bleed ICD Code: K92.2 Status: Acute (2) Symptomatic anemia ICD Code: D64.9 Status: Acute (3) Dehydration ICD Code: E86.0 Status: Acute (4) COPD (chronic obstructive pulmonary disease) ICD Code: J44.9 Status: Acute (5) HTN (hypertension) ICD Code: I10 Status: Acute Assessment and Plan 1. GI Bleed: H/o GI Bleed, +melena x2-3 days, +Hemoccult on exam, Hgb 6.2 on presentation. S/p Protonix IV x1 in ER, 2u pRBC post transfusion. GI following , appreciate recommendations. Continue Protonix gtt. Bleeding scan report reviewed showing no visualized bleeding. 2. Anemia: H/o Chronic Anemia requiring transfusion/Iron infusions in the past , currently on PO Iron. GI consulted for Hematology, appreciate recommendations. Hgb 6.2 --> 8.6. Awaiting H/H draw. Follow. Monitor Hgb/Hct. 3. Dehydration: GFR 75. UA negative. Encourage PO intake. 4. COPD: Chronic Respiratory Failure. Stable. O2 Dependent, on 2L NC, will continue. Resume home medications. DuoNeb prn. 5. HTN: BP elevated today. Resume home medications, Lisinopril and Norvasc and Carvedilol. Vasotec PRN. Monitor BP. 6. DVT Prophylaxis: SCD/Teds. Pharmacologic contraindication secondary to GI Bleed. Problem Qualifiers (1) GI bleed: Qualified Code: K92.2 - Gastrointestinal hemorrhage, unspecified gastrointestinal hemorrhage type Sanna Meadows Jan 08, 2017 14:22 Desirae Mosqueda MD Jan 09, 2017 11:49
--- NOTE | 2017-01-08 14:29 | EKG ---
Date Performed: 01/08/2017 Time Performed: 10:37:01 PTAGE: 66 years EKG: Sinus rhythm NORMAL ECG NO PREVIOUS TRACING DOCTOR: Michelet Aragon Interpretating Date/Time 01/08/2017 14:26:44
[2017-01-08 16:04] LABS: TRANSFERRIN IRON PROFILE 287 MG/DL (200-360)
[2017-01-08 16:07] LABS: FERRITIN 15 NG/ML (8-252)
--- NOTE | 2017-01-08 16:29 | RADRPT ---
EXAM DATE/TIME: 01/08/2017 13:33 [facility] COMPARISON: No previous studies available for comparison. INDICATIONS : Chronic GI bleed. DOSE: 21 mCi Tc99m Ultratag labeled red blood cells IV IMAGIN hrs MEDICAL HISTORY : Hypertension. Chronic obstructive pulmonary disease. Carcinoma, breast. SURGICAL HISTORY : Tubal ligation. Cholecystectomy. Bilateral hip replacement. ENCOUNTER: Initial ACUITY: >1 yr PAIN SCALE: 0/10 LOCATION: Abdomen. TECHNIQUE: Following the modified in vitro labeling of autologous red cells, dynamic continuous images were acqu ired for the specified interval. FINDINGS: BIODISTRIBUTION: There is a very good labeling of red cells without significant uptake in the gastric wall. There is good delineation of the blood pool. BLEEDING: No episodes of active GI bleeding are observed during specified interval of continuous observation. CONCLUSION: No GI bleeding is visualized. Examination is within normal limits. Jamari Lenz MD on January 08, 2017 at 16:25 Board Certified Radiologist. This report was verified electronically.
[2017-01-08] MEDS ORDERED: ENALAPRILAT 1.25 MG/ML VIAL IV PUSH PRN (18:00)
--- NOTE | 2017-01-08 20:41 | MB ---
cc: GOLDEN ALEXIS M.D. DATE OF CONSULTATION January 08, [address] Xie REASON FOR CONSULTATION Hematology consulted to render opinion regarding patient with recurrent anemia. HISTORY OF PRESENT ILLNESS The patient is a 66-year-old female sent to the hospital by her primary doctor because of anemia with hemoglobin of 6.2. She has had history of recurrent GI bleed requiring transfusion and iron infusion. She was seeing child and adolescent therapist and hematologists when she was in [place]. She has been getting periodic iron infusion, last one was May 2016. She has extensive GI workup in the past, reportedly could not localize the source of bleed, was told that she has colitis and she had intermittent bleed from the colitis. She stated that she has intermittent black stool. It usually starts with constipation and then she would developed black stools. She started having pica symptoms about a month ago again. She has increased weakness. She has chronic shortness of breath, on oxygen and that has not significantly changed. Denies any abdominal pain, any dysuria, hematuria. PAST MEDICAL HISTORY 1. Chronic obstructive pulmonary disease, on oxygen. 2. Hypertension. 3. Bipolar disorder. 4. Congestive heart failure. 5. Breast cancer. She had right breast lumpectomy about 10 years ago. She received chemotherapy and radiation but did not receive any endocrine therapy. 6. Recurrent GI bleed. 7. Diverticulitis. 8. Chronic anemia. PAST SURGICAL HISTORY 1. Right breast lumpectomy. 2. Upper endoscopy. 3. Colonoscopy. 4. Capsule endoscopy. 5. Port placement. 6. Tonsillectomy. 7. Cholecystectomy. 8. Bilateral tubal ligation. 9. Bilateral total hip arthroplasty. FAMILY HISTORY Noncontributory. SOCIAL HISTORY No tobacco or alcohol use. She just moved from [place] and living with her sister. ALLERGIES CONTRAST MEDIA. MEDICATIONS 1. Lisinopril. 2. Cymbalta. 3. Amlodipine. 4. Protonix. 5. Pravastatin. 6. Akiko-Colace. 7. Carvedilol. 8. Lamotrigine. 9. Singulair. 10. Primidone. 11. Seroquel. REVIEW OF SYSTEMS CONSTITUTIONAL: As above. EYES: Negative. ENT: Negative. CARDIOVASCULAR: Denies chest pain, palpitation. RESPIRATORY: As above. GI: As above. : As above. MUSCULOSKELETAL: Negative. HEMATOLOGY: As above. ENDOCRINE: Negative. DERMATOLOGY: Negative. PSYCHIATRIC: She has bipolar disorder. NEUROLOGIC: Negative. PHYSICAL EXAMINATION VITAL SIGNS: Temperature 98.4, blood pressure 140/89. GENERAL: She is alert and oriented x3. No acute distress. She is overweight. HEENT: Atraumatic, normocephalic. Pupils are equal, round and reactive to light. Extraocular muscles intact. No scleral icterus. Oropharynx moist mucosa. No lesion or thrush or mucositis. NECK: No thyromegaly. No palpable masses. LYMPHATICS: No palpable cervical, clavicular, axillary, inguinal lymph node. CARDIOVASCULAR: Regular S1-S2. No murmur. LUNGS: Clear to auscultation bilaterally. No wheezing or rhonchi. ABDOMEN: Soft, nontender. Could not palpate liver or spleen. EXTREMITIES: No cyanosis or clubbing or edema. BACK: No paravertebral tenderness. SKIN: No rash or petechiae. NEUROLOGIC: Nonfocal. LABORATORY DATA Reviewed. ASSESSMENT 1. Anemia with microcytosis consistent with iron-deficiency anemia. She has history of a recurrent GI bleed. She had extensive GI workup and could not localize the source of bleed. This has been going on for several years. She was seeing a feather edger at [place] and was receiving periodic transfusions and iron infusion. Her last iron infusion was in May. She now presented with a hemoglobin of 6.2. Hemoccult blood test was positive. She had received 2 units of packed red blood cell transfusion. Hemoglobin is up to 8.6. Iron study showed significant iron deficiency. I am going to arrange for her to have Venofer infusion while she is in the hospital. I told her to follow up with hematology as outpatient as she is going to need periodic iron infusion given her recurrent GI bleed. 2. Recurrent GI bleed. She had an extensive workup in the past, reportedly could not localize the source of bleed, it was suspected that she has colitis that is causing occult GI bleed. She just had an upper endoscopy which showed gastritis and Ashton's esophagus. Bleeding scan was negative. GI workup is ongoing. 3. Chronic obstructive pulmonary disease, on oxygen. 4. Bipolar disorder. 5. Hypertension. 6. History of breast cancer. She had right breast lumpectomy and she was treated with chemotherapy and radiation. She did not receive any endocrine therapy and she has been in remission for 10 years. She has not had a mammogram for about 2 years. I told her she needs to get a mammogram. She voices understanding. She stated her recent breast exam was unremarkable. PLAN 1. Arrange for Venofer infusion while she is the hospital. 2. Told the patient to follow with hematology once discharged as she is going to need periodic iron infusion. 3. Continue GI workup. 4. I told the patient to go have outpatient mammogram. Thank you Dr. Xie for asking me to see this patient. MD IVON Jameson/CYNTHIA /6:57 PM /8:17 PM MTDD
[2017-01-09] MEDS: PANTOPRAZOLE INJ 80 MG in SODIUM CHLORIDE 0.9% INJ 100 ML IV SCH (03:38)
[2017-01-09 04:32] VITALS: BP 131/60; PULSE 64; RESP 16; TEMP 98; O2SAT 96
[2017-01-09 08:02] VITALS: BP 159/65; PULSE 60; RESP 18; TEMP 98.1; O2SAT 98
--- NOTE | 2017-01-09 08:05 | PD.ONC.PN ---
Subjective Subjective Remarks Afebrile overnight. She has a mild headache but is otherwise without complaint. No bleeding. Objective Data Date Time Temp Pulse Resp B/P Pulse Ox O2 Delivery O2 Flow Rate FiO2 01/09/17 04:32 98.0 64 16 131/60 96 01/09/17 04:32 Nasal Cannula 2.00 01/08/17 23:34 Nasal Cannula 2.00 01/08/17 23:34 97.4 58 18 94/55 96 01/08/17 20:34 Nasal Cannula 2.00 01/08/17 20:24 97.9 68 18 163/70 98 01/08/17 20:00 82 01/08/17 18:27 140/89 01/08/17 16:00 Nasal Cannula 2.00 01/08/17 16:00 98.4 66 20 174/104 100 01/08/17 15:00 66 01/08/17 11:47 Nasal Cannula 2 01/08/17 11:42 97.9 64 20 179/76 100 188/80 01/08/17 11:19 98.4 63 20 171/78 97 171/78 01/08/17 11:16 Nasal Cannula 2 01/08/17 09:00 57 01/09/17 01/09/17 01/09/17 07:00 15:00 23:00 Intake Total 480 ml Output Total 550 ml Balance -70 ml Result Diagram: 01/08/1715 01/08/1715 Administered Medications Medications (Trade) Dose Ordered Sig/Stefany Route PRN Reason Start Time Stop Time Status Last Admin Dose Admin Pantoprazole Sodium/Sodium Chloride (Protonix Inj/NS Inj) 100 ml @ 10 mls/hr Q10H IV 01/07/17 22:00 01/09/17 03:38 Sodium Chloride (NS Flush) 2 ml BID IV FLUSH 01/07/17 21:00 01/08/17 21:46 Morphine Sulfate (Morphine Inj) 2 mg Q3H PRN IV Pain 6-10 01/07/17 19:30 01/08/17 21:47 Senna/Docusate Sodium (Akiko-Colace) 1 tab BID PO 01/07/17 21:00 01/08/17 12:08 Amlodipine Besylate (Norvasc) 5 mg DAILY PO 01/08/17 09:00 01/08/17 12:09 Carvedilol (Coreg) 25 mg BID PO 01/07/17 21:00 01/08/17 21:46 Duloxetine HCl (Cymbalta Dr) 60 mg DAILY PO 01/08/17 09:00 01/08/17 12:08 Lamotrigine (LaMICtal) 100 mg BID PO 01/07/17 21:00 01/08/17 21:46 Montelukast Sodium (Singulair) 10 mg HS PO 01/07/17 21:00 01/08/17 21:46 Primidone (Mysoline) 50 mg BID PO 01/07/17 21:00 01/08/17 21:46 Quetiapine Fumarate (SEROquel) 400 mg HS PO 01/07/17 21:00 01/08/17 21:46 Pravastatin Sodium (Pravachol) 80 mg HS PO CM 01/07/17 22:00 01/08/17 21:46 Objective Remarks GENERAL: Middle aged female upright in bed in [facility]. SKIN: Warm and dry. HEAD: Normocephalic. EYES: No scleral icterus. No injection or drainage. NECK: Supple, trachea midline. CARDIOVASCULAR: Regular rate and rhythm. RESPIRATORY: diminished at bases, occasional wheeze. on supplemental O2 via NC GASTROINTESTINAL: Abdomen soft, non-tender, nondistended. EXTREMITIES: No cyanosis MUSCULOSKELETAL: Adequate muscle tone. NEUROLOGICAL: No obvious focal deficit. Awake, alert, and oriented x3. Assessment/Plan Problem List: (1) Symptomatic anemia Status: Acute Plan: IV Venofer ordered --Anemia with microcytosis consistent with iron-deficiency anemia. --has history of a recurrent GI bleed. had extensive GI workup. could not localize the source of bleed. -- has been going on for several years. --was seeing a ceramics artist at [place] and was receiving periodic transfusions and iron infusion. --last iron infusion was in May. now presented with a hemoglobin of 6.2. Hemoccult blood test was positive. --had received 2 units of packed red blood cell transfusion. Hemoglobin is up to 8.6. Iron study showed significant iron deficiency. going to arrange for her to have Venofer infusion while she is in the hospital. --will need to follow up with hematology as outpatient as she is going to need periodic iron infusion given her recurrent GI bleed. (2) GI bleed Status: Acute Plan: --Recurrent GI bleed. --had an extensive workup in the past, reportedly could not localize the source of bleed, was thought that she has colitis. --just had an upper endoscopy which showed gastritis and Ashton's esophagus. Bleeding scan was negative. --GI workup is ongoing. (3) History of breast cancer Status: Acute Plan: --needs to obtain outpatient mammogram Assessment 66-year-old female sent to the hospital by her primary doctor because of anemia with hemoglobin of 6.2. --has history of recurrent GI bleed requiring transfusion and iron infusion. h/o Chronic obstructive pulmonary disease, on oxygen. Hypertension. Bipolar disorder. Congestive heart failure. Breast cancer. She had right breast lumpectomy about 10 years ago. She received chemotherapy and radiation but did not receive any endocrine therapy. Recurrent GI bleed. Diverticulitis. Chronic anemia. Right breast lumpectomy. Upper endoscopy. Colonoscopy. Capsule endoscopy. Port placement. Tonsillectomy. Cholecystectomy. Bilateral tubal ligation. Bilateral total hip arthroplasty. Plan 1. await CBC today 2. continue iron infusion Attending Statement The exam, history, and the medical decision-making described in the above note were completed with the assistance of the mid-level provider. I reviewed and agree with the findings presented. I attest that I had a [id number] encounter with the patient on the same day, and personally performed and documented my assessment and findings in the medical record. Tolerated venofer. Hgb stable. Can be d/c from heme standpoint. Told pt to f/u heme clinic for more iron infusion. Problem Qualifiers (1) GI bleed: Qualified Code: K92.2 - Gastrointestinal hemorrhage, unspecified gastrointestinal hemorrhage type Fidelina Lin Jan 09, 2017 08:05 Shawn Pruitt MD Jan 09, 2017 13:01
[2017-01-09 08:17] LABS: BASOPHIL % 0.6 % (0.0-2.0); EOSINOPHIL # 0.2 TH/MM3 (0-0.4); EOSINOPHIL % 3.1 % (0.0-4.0); HEMATOCRIT 26.9 % (35.0-46.0); HEMO FLAGS DIFF FINAL; LYMPH % 20.1 % (9.0-44.0); LYMPHOCYTE # 1.6 TH/MM3 (1.0-4.8); MEAN CELL VOLUME 76.1 FL (80.0-100.0); MEAN CORPUSCULAR HEMOGLOBIN 24.8 PG (27.0-34.0); MEAN CORPUSCULAR HGB CONC 32.6 % (32.0-36.0); MONO % 11.8 % (0.0-8.0); NEUT % 64.4 % (16.0-70.0); PLATELET COUNT 241 TH/MM3 (150-450); RED BLOOD COUNT 3.54 MIL/MM3 (4.00-5.30); RED CELL DISTRIBUTION WIDTH 20.2 % (11.6-17.2); WHITE BLOOD COUNT 7.8 TH/MM3 (4.0-11.0)
[2017-01-09] MEDS: UMECLIDINIUM 62.5 MCG/VILANTEROL 25 MCG INHALER INH SCH (09:00)
[2017-01-09] MEDS: SODIUM CHLORIDE 0.9% FLUSH 10 ML FLUSH IV FLUSH SCH (09:00)
[2017-01-09] MEDS: DOCUSATE SODIUM 50 MG/SENNA 8.6 MG TAB PO SCH (09:00)
[2017-01-09] MEDS ORDERED: IRON SUCROSE INJ 200 MG in SODIUM CHLORIDE 0.9% INJ 100 ML IV SCH (09:00)
[2017-01-09 10:00] VITALS: PULSE 61
[2017-01-09] MEDS: LISINOPRIL 20 MG TAB PO SCH (10:24)
[2017-01-09] MEDS: amLODIPine BESYLATE 5 MG TAB PO SCH (10:25)
[2017-01-09] MEDS: lamoTRIgine 100 MG TAB PO SCH (10:25)
[2017-01-09] MEDS: PRIMIDONE 50 MG TAB PO SCH (10:25)
[2017-01-09] MEDS: DULoxetine HCl DR 60 MG CAP PO SCH ×2 (10:25→12:50)
[2017-01-09] MEDS: CARVEDILOL 12.5 MG TAB PO SCH (10:25)
--- NOTE | 2017-01-09 11:37 | HHI.GIFU ---
Subjective Remarks Resting in bed, denies nausea, vomiting, abd pain, melena or hematochezia. Just finished receiving iron infusion (Ericka Copeland MANAGER SPEECH) Objective Vitals I&O Vital Signs Date Time Temp Pulse Resp B/P Pulse Ox O2 Delivery O2 Flow Rate FiO2 01/09/17 08:02 98.1 60 18 159/65 98 01/09/17 04:32 98.0 64 16 131/60 96 01/09/17 04:32 Nasal Cannula 2.00 01/08/17 23:34 Nasal Cannula 2.00 01/08/17 23:34 97.4 58 18 94/55 96 01/08/17 20:34 Nasal Cannula 2.00 01/08/17 20:24 97.9 68 18 163/70 98 01/08/17 20:00 82 01/08/17 18:27 140/89 01/08/17 16:00 Nasal Cannula 2.00 01/08/17 16:00 98.4 66 20 174/104 100 01/08/17 15:00 66 01/08/17 11:47 Nasal Cannula 2 01/08/17 11:42 97.9 64 20 179/76 100 188/80 I/O 01/08/17 01/08/17 01/08/17 01/09/17 01/09/17 01/09/17 06:59 14:59 22:59 06:59 14:59 22:59 Intake Total 1178 ml 267 ml 564 ml 480 ml Output Total 1200 ml 200 ml 550 ml Balance 1178 ml -933 ml 364 ml -70 ml Intake Oral 340 ml 220 ml 480 ml 480 ml IV Total 238 ml 47 ml 84 ml Packed Cells 600 ml Output Urine Total 1200 ml 200 ml 550 ml # Voids 2 1 # Bowel Movements 2 0 1 0 Laboratory Laboratory Tests Test 01/09/17 07:50 White Blood Count 7.8 Red Blood Count 3.54 Hemoglobin 8.8 Hematocrit 26.9 Mean Corpuscular Volume 76.1 Mean Corpuscular Hemoglobin 24.8 Mean Corpuscular Hemoglobin 32.6 Concent Red Cell Distribution Width 20.2 Platelet Count 241 Mean Platelet Volume 7.3 Neutrophils (%) (Auto) 64.4 Lymphocytes (%) (Auto) 20.1 Monocytes (%) (Auto) 11.8 Eosinophils (%) (Auto) 3.1 Basophils (%) (Auto) 0.6 Neutrophils # (Auto) 5.0 Lymphocytes # (Auto) 1.6 Monocytes # (Auto) 0.9 Eosinophils # (Auto) 0.2 Basophils # (Auto) 0.0 CBC Comment DIFF FINAL Differential Comment Imaging Last Impressions GI Bleed Scan Nuclear Medicine 01/08/17 0000 Signed Impressions: Service Date/Time: Sunday, January 08, 2017 13:33 - CONCLUSION: No GI bleeding is visualized. Examination is within normal limits. Jamari Lenz MD Chest X-Ray 01/07/17 1734 Signed Impressions: Service Date/Time: January 17:38 - CONCLUSION: 1. Left subclavian port, as above. 2. No acute cardiopulmonary disease. Rao Almazan MD Physical Exam HEENT: normocephalic; atraumatic; no jaundice. NECK: Neck is supple, no JVD, no lymphadenopathy. CHEST: Chest is clear to auscultation and percussion. CARDIAC: Regular rate and rhythm with no murmur gallop or rubs. ABDOMEN: Soft, nondistended, nontender; no hepatosplenomegaly; bowel sounds are present in all four quadrants. EXTREMITIES: No clubbing, cyanosis, or edema. SKIN: Normal; no rash; no jaundice. DELI ASSOCIATE: No focal deficits; alert and oriented times three. (Ericka Copeland MANAGER SPEECH) Assessment and Plan Plan ASSESSMENT: - GIB, Melena. S/P EGD on (01/08/17) ------> gastritis, short segment of Ashton' s, and hiatal hernia, bx pending Recently relocated from [place]. She has a long history of GI blood loss and has had extensive GI workup in the past. He was thought that she had a slow bleed secondary to ischemic colitis in the past. She reports that last year she had a colonoscopy and a capsule endoscopy and the source of her bleeding was not identified. Prior to that she was evaluated with an EGD. She denies any history of peptic ulcer disease. She has not blood thinners. She does have GERD and takes Protonix with twice a day dosing and states if she goes down to once a day or skips a dose she will have daily symptoms. She has occasional constipation and takes MiraLAX for this. - Severe anemia, microcytic, hypochromic. indices consistent with KAT H&H 6.2/ 19.6, MCV 72.4, MCHC 31.7 on admission- Today 8.8 no bleeding reported, bleeding scan (-), EGD as above. Hx of chronic anemia , hematology on the case, s/p iron infusion . S/P 2 units PRBC. - GERD. PPI - Constipation, takes Miralax at home. - Hx ischemic colitis, diverticulitis. No abdominal pain or red blood in stool - COPD, ELENA, HTN, CHF, Hx breast cancer per attending PLAN: - RAMIREZ - Protonix Gtt - Monitor H&H - Transfuse as necessary - Supportive care - Further recommendations to follow based on results of above - Patient seen and examined by Dr. Xie and myself and this note is written on her behalf (Ericka Copeland) Plan ok to dc from [facility] if dc fu office (Lianne Xie MD) Ericka Copeland Jan 09, 2017 11:37 Lianne Xie MD Jan 09, 2017 15:32
--- NOTE | 2017-01-09 11:56 | HHI.PR ---
Subjective Remarks Follow-up for anemia Hemoglobin stable, status post EGD yesterday, only showed gastritis and Ashton' s esophagus. Just finished being Venofer infusion. Objective Vitals Vital Signs Date Time Temp Pulse Resp B/P Pulse Ox O2 Delivery O2 Flow Rate FiO2 01/09/17 08:02 98.1 60 18 159/65 98 01/09/17 04:32 98.0 64 16 131/60 96 01/09/17 04:32 Nasal Cannula 2.00 01/08/17 23:34 Nasal Cannula 2.00 01/08/17 23:34 97.4 58 18 94/55 96 01/08/17 20:34 Nasal Cannula 2.00 01/08/17 20:24 97.9 68 18 163/70 98 01/08/17 20:00 82 01/08/17 18:27 140/89 01/08/17 16:00 Nasal Cannula 2.00 01/08/17 16:00 98.4 66 20 174/104 100 01/08/17 15:00 66 I/O 01/08/17 01/08/17 01/08/17 01/09/17 01/09/17 01/09/17 07:00 15:00 23:00 07:00 15:00 23:00 Intake Total 1178 ml 267 ml 564 ml 480 ml Output Total 1200 ml 200 ml 550 ml Balance 1178 ml -933 ml 364 ml -70 ml Intake Oral 340 ml 220 ml 480 ml 480 ml IV Total 238 ml 47 ml 84 ml Packed Cells 600 ml Output Urine Total 1200 ml 200 ml 550 ml # Voids 2 1 # Bowel Movements 2 0 1 0 Result Diagram: 01/09/17 0750 01/08/17 0715 Objective Remarks Not in distress, well-nourished, looks stated age PERRL, pink conjunctiva without injection, anicteric Nose without bleeding, airway patent, oropharynx clear Supple neck, no masses or thyromegaly, trachea midline Normal rate and regular rhythm, no murmurs gallops or rubs appreciated. Clear to auscultation and symmetric bilaterally, normal respiratory effort. Normal bowel sounds, soft, non-tender, nondistended, no guarding. Extremities without clubbing, cyanosis, or edema. No rash of generalized distribution. Skin is warm and dry. AAO x3, no cranial nerve deficits, moves all 4 extremities, no focal neurologic deficits Normal mood, appropriate affect A/P Problem List: (1) GI bleed ICD Code: K92.2 Status: Acute (2) Symptomatic anemia ICD Code: D64.9 Status: Acute (3) Dehydration ICD Code: E86.0 Status: Acute (4) COPD (chronic obstructive pulmonary disease) ICD Code: J44.9 Status: Acute (5) HTN (hypertension) ICD Code: I10 Status: Acute Assessment and Plan 1. GI Bleed: H/o GI Bleed, +melena x2-3 days, +Hemoccult on exam, Hgb 6.2 on presentation. S/p Protonix IV x1 in ER, 2u pRBC post transfusion, hemoglobin remained stable. GI was consulted, status post EGD showed gastritis and Ashton 's esophagus, cleared for discharge per GI. Continue Protonix. Bleeding scan negative. 2. Anemia: H/o Chronic Anemia requiring transfusion/Iron infusions in the past , currently on PO Iron. Hemoglobin stable. Hematology consulted, recommended Venofer, cleared for discharge, follow-up with hematology as outpatient. Continue iron. 3. Dehydration: GFR 75. UA negative. Encourage PO intake. 4. COPD: Chronic Respiratory Failure. Stable. O2 Dependent, on 2L NC, will continue. Resume home medications. DuoNeb prn. 5. HTN: BP elevated today. Resume home medications, Lisinopril and Norvasc and Carvedilol. Vasotec PRN. Monitor BP. 6. DVT Prophylaxis: SCD/Teds. Pharmacologic contraindication secondary to GI Bleed. Discharge Planning Discharge today. Problem Qualifiers (1) GI bleed: Qualified Code: K92.2 - Gastrointestinal hemorrhage, unspecified gastrointestinal hemorrhage type Desirae Mosqueda MD Jan 09, 2017 11:56
[2017-01-09] MEDS ORDERED: FERR324T8 PO (12:00)
--- NOTE | 2017-01-09 12:03 | HHI.DS ---
Discharge Summary Admission Date Jan 07, 2017 at 19:19 Discharge Date: Jan 09, 2017 Admitting Diagnosis anemia, GI bleed (1) Symptomatic anemia ICD Code: D64.9 Diagnosis: Principal (2) Dehydration ICD Code: E86.0 Diagnosis: Secondary (3) COPD (chronic obstructive pulmonary disease) ICD Code: J44.9 Diagnosis: Secondary (4) HTN (hypertension) ICD Code: I10 Diagnosis: Secondary Procedures EGD showed gastritis and Ashton's esophagus Brief History - From Admission This is a 66-year-old female with a PMH of HTN, Bipolar Disorder, COPD, O2 Dependent, CHF (Unknown EF), Breast CA, h/o GI Bleed, Chronic Anemia and Diverticulitis who was sent to the ER by her PCP secondary to Hgb 6.2. Pt without complaints at this time except reports dark stool x2-3 days. Recently moved to [facility] from [place], was following w/ GI and Hematology for h/o GI Bleed and Anemia. S/p EGD/Colonoscopy and Pill Endoscopy in the past, however states no clear source of bleed was ever identified, thought to have bleed secondary to recurrent Colitis, s/p multiple transfusions and receiving IV Iron , last infusion May 2016. No further infusions since then, on Iron PO. On arrival, BP 146/65, HR 79, O2 sat 97% on RA, Afebrile. Hgb 6.2. GFR 75. INR 1.0. UA negative. CXR left subclavian port, no acute findings. + Hemoccult on exam. S/p Protonix IV x1, 2u pRBC ordered in ER, pending transfusion. CBC/BMP: 01/09/17 0750 01/08/17 0715 Significant Findings Laboratory Tests Test 01/07/17 01/08/17 01/09/17 17:55 07:15 07:50 Red Blood Count 2.71 MIL/MM3 3.45 MIL/MM3 3.54 MIL/MM3 (4.00-5.30) (4.00-5.30) (4.00-5.30) Hemoglobin 6.2 GM/DL 8.6 GM/DL 8.8 GM/DL (11.6-15.3) (11.6-15.3) (11.6-15.3) Hematocrit 19.6 % 26.3 % 26.9 % (35.0-46.0) (35.0-46.0) (35.0-46.0) Mean Corpuscular Volume 72.4 FL 76.1 FL 76.1 FL (80.0-100.0) (80.0-100.0) (80.0-100.0) Mean Corpuscular Hemoglobin 22.9 PG 25.0 PG 24.8 PG (27.0-34.0) (27.0-34.0) (27.0-34.0) Mean Corpuscular Hemoglobin 31.7 % Concent (32.0-36.0) Red Cell Distribution Width 18.6 % 20.1 % 20.2 % (11.6-17.2) (11.6-17.2) (11.6-17.2) Monocytes (%) (Auto) 10.3 % 10.7 % 11.8 % (0.0-8.0) (0.0-8.0) (0.0-8.0) Sodium Level 134 MEQ/L (136-145) Carbon Dioxide Level 33.6 MEQ/L 33.4 MEQ/L (21.0-32.0) (21.0-32.0) Anion Gap 2 MEQ/L (5-15) Estimat Glomerular Filtration 75 ML/MIN (>89) 82 ML/MIN (>89) Rate Aspartate Amino Transf 10 U/L (15-37) 11 U/L (15-37) (AST/SGOT) Iron Level 45 MCG/DL (50-170) Percent Iron Saturation 11.2 % (20-50) Albumin 3.2 GM/DL (3.4-5.0) PE at Discharge Not in distress, well-nourished, looks stated age PERRL, pink conjunctiva without injection, anicteric Nose without bleeding, airway patent, oropharynx clear Supple neck, no masses or thyromegaly, trachea midline Normal rate and regular rhythm, no murmurs gallops or rubs appreciated. Clear to auscultation and symmetric bilaterally, normal respiratory effort. Normal bowel sounds, soft, non-tender, nondistended, no guarding. Extremities without clubbing, cyanosis, or edema. No rash of generalized distribution. Skin is warm and dry. AAO x3, no cranial nerve deficits, moves all 4 extremities, no focal neurologic deficits Normal mood, appropriate affect Hospital Course This is a 66 year-old female with previous history of anemia and GI bleeding of unknown etiology, was initially thought to be secondary to colitis. Had previously extensive workup leading, presenting with symptomatic anemia of 6.2. Upon admission, the patient was transfused 2 units of packed red blood cells. Bleeding scan was done and was negative. GI was consulted. Protonix drip was started. An EGD was done, showed gastritis and Ashton's esophagus. Hematology follows is oncology were also consulted, iron infusion was started. Patient was cleared for discharge by GI and hematology. She will follow up with hematology and gastroenterology as outpatient. She'll be discharged on iron. She'll also be given a CBC lab requisition weekly. Pt Condition on Discharge: Good Discharge Disposition: Discharge Home Discharge Time: > 30 minutes Discharge Instructions DIET: Follow Instructions for: Heart Healthy Diet Activities you can perform: Regular-No Restrictions Follow up Referrals: Gastroenterology - 2 Weeks Oncology - 2 Weeks New Medications: Ferrous Fumarate (Ferrous Fumarate) 324 Mg Tab 325 MG PO BID Nutritional Supplement #60 Ref 0 TAB Continued Medications: Amlodipine (Amlodipine) 5 Mg Tab 5 MG PO DAILY @ 1200 Blood Pressure Management #30 Ref 0 TAB Carvedilol (Carvedilol) 25 Mg Tab 25 MG PO BID #60 Ref 0 TAB Clonidine (Clonidine) 0.1 Mg Tab 0.1 MG PO DIRECTED PRN SBP>170>[id number] #60 Ref [address] (Duloxetine DR) 60 Mg Capdr 60 MG PO DAILY #30 Ref [address] (Duloxetine DR) 30 Mg Capdr 30 MG PO DAILY @ 1200 #30 Ref 0 CAP Lamotrigine (Lamotrigine) 100 Mg Tab 100 MG PO BID Control Seizures #60 Ref 0 TAB Lisinopril (Lisinopril) 20 Mg Tab 20 MG PO DAILY #30 Ref 0 TAB Montelukast (Montelukast) 10 Mg Tab 10 MG PO HS #30 Ref 0 TAB Pantoprazole (Pantoprazole) 40 Mg Tab 40 MG PO BID Reflux #30 Ref 0 TAB Primidone (Primidone) 50 Mg Tab 50 MG PO BID Control Seizures #60 Ref 0 TAB Quetiapine (Quetiapine) 400 Mg Tab 400 MG PO HS #30 Ref 0 TAB Simvastatin (Simvastatin) 40 Mg Tab 40 MG PO HS Cholesterol Management #30 Ref 0 TAB Umeclidinium-Vilanterol Inh (Anoro Ellipta Inh) 62.5-25 Mcg/Act Aero 1 PUFF INH DAILY COPD #1 Ref 0 INHALER Desirae Mosqueda MD Jan 09, 2017 12:03
[2017-01-09 12:24] VITALS: BP 160/77; PULSE 70; RESP 18; TEMP 97.9; O2SAT 94
[2017-01-09] MEDS: DULoxetine HCl DR 30 MG CAP PO SCH (12:53)
--- NOTE | 2017-01-10 09:59 | PQ ---
Physician Query Response Document PATIENT: KEVON YOUNG : 1950 ADMIT DATE: 01/07/2017 7:19 PM DISCH DATE: 01/09/2017 1:20 PM RESPONDING PROVIDER #: latasha QUERY TEXT: Anemia Type Anemia is documented in the Medical Record. Please specify the cause (includes suspected or probable cause) Such as: -- Due to acute blood loss -- Due to chronic blood loss -- Due to iron deficiency -- Due to postoperative blood loss -- Due to chronic disease -- Other, please specify The patient's Clinical Indicators include: GI bleed, melena, severe anemia HGB-6.2 HCT-19.6 Transfused 2 units PRBCs Query created by: Josise Messer on 01/08/2017 3:25 PM RESPONSE TEXT: Anemia due to chronic blood loss and KAT Electronically signed by: Desirae Mosqueda MD 01/10/2017 9:55 AM
== END 2017-01-09 13:20 | disposition home or self-care (01) | DRG 378 ==
LOC: NEPE 14:35 → NEDA 19:19 → N04A 21:54
PROVIDERS: ADMIT Hospitalist; ATTEND Hospitalist
PROC: 30233N1 Transfusion of Nonautologous Red Blood Cells into Peripheral Vein, Percutaneous Approach (ICD-10-PCS; principal; 2017-01-07)
PROC: 0DB98ZX Excision of Duodenum, Via Natural or Artificial Opening Endoscopic, Diagnostic (ICD-10-PCS; 2017-01-08)
PROC: 0DB78ZX Excision of Stomach, Pylorus, Via Natural or Artificial Opening Endoscopic, Diagnostic (ICD-10-PCS; 2017-01-08)
PROC: 0DB58ZX Excision of Esophagus, Via Natural or Artificial Opening Endoscopic, Diagnostic (ICD-10-PCS; 2017-01-08)
DX: K92.1 Melena (principal); D50.0 Iron deficiency anemia secondary to blood loss (chronic); J96.10 Chronic respiratory failure, unspecified whether with hypoxia or hypercapnia; I11.0 Hypertensive heart disease with heart failure; I50.9 Heart failure, unspecified; Z99.81 Dependence on supplemental oxygen; J44.9 Chronic obstructive pulmonary disease, unspecified; Z96.643 Presence of artificial hip joint, bilateral; Z92.21 Personal history of antineoplastic chemotherapy; Z87.891 Personal history of nicotine dependence; Z85.3 Personal history of malignant neoplasm of breast; Z92.3 Personal history of irradiation; E86.0 Dehydration; K21.9 Gastro-esophageal reflux disease without esophagitis; F31.9 Bipolar disorder, unspecified; K29.70 Gastritis, unspecified, without bleeding; K22.70 Barrett's esophagus without dysplasia; K44.9 Diaphragmatic hernia without obstruction or gangrene
CPT/HCPCS: 36430; 71010; 78278; 80053; 81001; 82728; 83540; 83550; 85025; 85610; 85730; 86850; 86900; 86901; 86920; 88305; 88312; 93005; 96374; A9560; C9113; J1756; J2270; J2370; J7050; P9016

== ENCOUNTER → 2017-11-11 | Outpatient (CLI) | payer MEDICARE ==
[~2017-11-11] MED LIST: AMLO5TAB2 PO; CARV25TA PO; CLON0.1T PO; DULO1CAP2 PO; DULO1CAP3 PO; FERR324T8 PO; LAMO100T PO; LISI-515 PO; MONT10TA4 PO; PANT40TA3 PO; PRIM50TA5 PO; QUET400T PO; SIMV40TA PO; UMEC1AER INH
[2017-11-11 13:23] LABS: BASOPHIL % 0.6 % (0.0-2.0); EOSINOPHIL # 0.1 TH/MM3 (0-0.4); HEMATOCRIT 28.2 % (35.0-46.0); HEMOGLOBIN 9.1 GM/DL (11.6-15.3); LYMPH % 20.2 % (9.0-44.0); LYMPHOCYTE # 1.5 TH/MM3 (1.0-4.8); MEAN CELL VOLUME 80.6 FL (80.0-100.0); MEAN CORPUSCULAR HEMOGLOBIN 26.1 PG (27.0-34.0); MEAN CORPUSCULAR HGB CONC 32.3 % (32.0-36.0); MEAN PLATELET VOLUME 7.3 FL (7.0-11.0); MONO % 9.7 % (0.0-8.0); MONOCYTE # 0.7 TH/MM3 (0-0.9); NEUT % 67.5 % (16.0-70.0); PLATELET COUNT 248 TH/MM3 (150-450); RED CELL DISTRIBUTION WIDTH 21.7 % (11.6-17.2); WHITE BLOOD COUNT 7.4 TH/MM3 (4.0-11.0)
[2017-11-11 13:42] LABS: ALBUMIN 3.5 GM/DL (3.4-5.0); ALT (GPT) 16 U/L (10-53); AST (GOT) 14 U/L (15-37); BICARBONATE 31.8 MEQ/L (21.0-32.0); BLOOD UREA NITROGEN 10 MG/DL (7-18); CALCIUM 8.5 MG/DL (8.5-10.1); CHLORIDE 104 MEQ/L (98-107); CREATININE 0.85 MG/DL (0.50-1.00); GLOMERULAR FILTRATION RATE 67 ML/MIN (>89); GLUCOSE,FASTING 78 MG/DL (74-99); SODIUM (NA) 142 MEQ/L (136-145)
[2017-11-11 13:44] LABS: ALKALINE PHOSPHATASE 98 U/L (45-117); TOTAL BILIRUBIN ADULT 0.1 MG/DL (0.2-1.0); TOTAL PROTEIN 7.3 GM/DL (6.4-8.2)
== END ==
LOC: CLAB 13:02
PROVIDERS: ATTEND Internal Medicine Interventional Cardiology
DX: J44.9 Chronic obstructive pulmonary disease, unspecified (principal); I50.30 Unspecified diastolic (congestive) heart failure; I77.9 Disorder of arteries and arterioles, unspecified; I35.0 Nonrheumatic aortic (valve) stenosis
CPT/HCPCS: 36415; 80053; 85025

== ENCOUNTER 2017-12-21 16:36 | Inpatient (IN) ==
[2017-12-21] MEDS ORDERED: Sod Chloride 0.9% Inj 1,000 ML IV.SIG ONE (17:55)
[2017-12-21] MEDS ORDERED: Morphine Inj 4 MG, Morphine Inj 2 MG IV.PUSH ONE ×2 (17:57)
[2017-12-21 18:45] LABS: Baso % (Auto) 0.7 % (0.0-2.0); Eos # (Auto) 0.2 th/mm3 (0.0-0.4); Eos % (Auto) 2.6 % (0.0-4.0); Hematocrit 21.5 % (35.0-46.0); Hemoglobin 7.2 gm/dL (11.6-15.3); Lymph # (Auto) 1.3 th/mm3 (1.0-4.8); Lymph % (Auto) 22.7 % (9.0-44.0); Mean Corpuscular HGB Conc 33.5 % (32.0-36.0); Mean Corpuscular Volume 83.7 fL (80.0-100.0); Mean Platelet Volume 7.9 fL (7.0-11.0); Mono # (Auto) 0.6 th/mm3 (0.0-0.9); Mono % (Auto) 9.9 % (0.0-8.0); Neut # (Auto) 3.8 th/mm3 (1.8-7.7); Neut % (Auto) 64.1 % (16.0-70.0); Platelet Count 236 th/mm3 (150-450); Red Blood Count 2.57 mil/mm3 (4.00-5.30); Red Cell Distribution Width 21.5 % (11.6-17.2); White Blood Count 5.9 th/mm3 (4.0-11.0)
[2017-12-21 18:48] LABS: Albumin 3.1 g/dL (3.4-5.0); Anion Gap 9 meq/L (5-15); Aspartate Aminotransferase 11 U/L (15-37); Blood Urea Nitrogen 23 mg/dL (7-18); Calcium 8.5 mg/dL (8.5-10.1); Carbon Dioxide 28.6 meq/L (21.0-32.0); Chloride 98 meq/L (98-107); Glomerular Filtration Rate 43 mL/min (>89); Glucose,Random 95 mg/dL (74-106); Lipase 148 U/L (73-393); Magnesium 2.8 mg/dL (1.5-2.5); Potassium 4.9 meq/L (3.5-5.1); Sodium 136 meq/L (136-145)
[2017-12-21 18:49] LABS: Alanine Aminotransferase 15 U/L (10-53)
[2017-12-21 18:51] LABS: Activated Partial Thrombo Time 25.4 sec (24.3-30.1); Prothrombin Time 10.1 sec (9.8-11.6)
[2017-12-21 18:52] LABS: Alkaline Phosphatase 101 U/L (45-117); Total Protein 6.6 g/dL (6.4-8.2)
--- NOTE | 2017-12-21 18:56 | CT ---
EXAM DATE: 12/21/2017 6:45 PM EDT AGE/SEX: 67 years / Female INDICATIONS: Abdominal pain. CLINICAL DATA: This is the patient's initial encounter. Patient reports that signs and symptoms have been present for 2 days and indicates a pain score of 8/10. MEDICAL/SURGICAL HISTORY: Anemia. Chronic obstructive pulmonary disease. Hypertension. Colit is, breast cancer, aortic stenosis. Cholecystectomy. Tubal ligation. RADIATION DOSE: 9.63 CTDI (mGy) COMPARISON: No prior exams available for comparison. TECHNIQUE: Multiple contiguous axial images were obtained through the abdomen. Images were obtained using multiple row detector helical technique. Using automated exposure control and adjustment of the mA and/or kV according to patient size, radiation dose was kept as low as reasonably achievable to o btain optimal diagnostic quality images. DICOM format image data is available electronically for rev iew and comparison. FINDINGS: Lower Lungs: Nonconsolidative interstitial opacity present in the central lower lung on the superiorm ost 3 images of the scan Liver: The liver has a homogeneous density without space-occupying lesion for noncontrast technique. There is no dilation of the biliary tree. Cholecystectomy Spleen: Homogeneous density without enlargement. Pancreas: Unremarkable without mass or calcification. Kidneys: Normal in size and shape. No evidence of mass or hydronephrosis. There is a solitary 2 mm c alcification upper pole extrarenal pelvis on the left side, axial image #23, which is nonspecific in appearance and could represent a vascular calcification or a nonobstructing stone. No calcifications along the course of either ureter and both ureters are normal in dimension Adrenal Glands: Unremarkable. Aorta: The aorta and proximal iliac vessels are grossly unremarkable without aneurysmal dilation. D iffuse prominent arteriosclerotic calcification Bowel/Mesentery: The bowel loops are grossly unremarkable. The cecum and sigmoid colon have a normal configuration. Abdominal Wall: Intact. Retroperitoneum: No evidence of adenopathy in the retrocrural, para-aortic, or deep pelvic regions. Bladder: Contours are smooth. Reproductive Organs: No abnormal masses or calcifications seen. Inguinal: The inguinal region is unremarkable without evidence of adenopathy. Bony Structures: Bilateral total hip arthroplasty causes streak artifact in the pelvis degrading dianna ge quality about the bladder. Mild left lumbar curvature. CONCLUSION: 1. Nonconsolidative interstitial infiltrate in the left lower lung on the superiormost images of the scan. 2. Solitary 2 mm calcification upper pole extrarenal pelvis on the left side without evidence of hyd ronephrosis. This calcification could represent a nonobstructing stone or vascular calcification. Electronically signed by: Torey Squires MD 12/21/2017 6:55 PM EDT
--- NOTE | 2017-12-21 18:57 | CT ---
EXAM DATE: 12/21/2017 6:43 PM EDT AGE/SEX: 67 years / Female INDICATIONS: Syncope, right eye loss of vision yesterday. CLINICAL DATA: This is the patient's initial encounter. Patient reports that signs and symptoms have been present for 4 - 6 days and indicates a pain score of 3/10. MEDICAL/SURGICAL HISTORY: Anemia. Chronic obstructive pulmonary disease. Hypertension. Colitis, breast cancer, aortic stenosis. Cholecystectomy. Tubal ligation. RADIATION DOSE: 56.35 CTDI (mGy) COMPARISON: No prior exams available for comparison. TECHNIQUE: CT of the head without contrast. Using automated exposure control and adjustment of the mA and/or kV according to patient size, radiation dose was kept as low as reasonably achievable to ob tain optimal diagnostic quality images. DICOM format image data is available electronically for revi ew and comparison. FINDINGS: Cerebrum: The ventricles are normal for age. No evidence of midline shift, mass lesion, hemorrhage or acute infarction. No extraaxial fluid collections are seen. Posterior Fossa: The cerebellum and brainstem are intact. The 4th ventricle is midline. The cerebe llopontine angle is unremarkable. Extracranial: The visualized portion of the orbits is intact. Skull: The calvaria is intact. No evidence of skull fracture. CONCLUSION: 1. Negative noncontrast CT brain. Electronically signed by: Torey Squires MD 12/21/2017 6:56 PM EDT
[2017-12-21 19:18] LABS: Ovalocytes 1+; Platelet Estimate Normal (Normal); Platelet Morphology Normal (Normal)
--- NOTE | 2017-12-21 20:07 | ED ---
HPI General Chief complaint: GI Bleed Stated complaint: Abd Pain/black stool per patient Time Seen by Provider: 12/21/17 17:44 Source: patient Mode of arrival: wheelchair Limitations: no limitations History of Present Illness HPI Narrative: 67-year-old female that presents to the ED for evaluation of abdominal cramping, dark stools and weakness. Per patient she has a chronic history of GI bleeds as well as anemia. Per patient she has had multiple workups for the GI bleeds and they have been unsuccessful in finding a source of the bleeding. Per patient the symptoms started about 4 days ago. Per patient her wellness program manager started her on aspirin which she was discontinue after having the GI bleed. Per patient this was started because of the problems with her heart valve. Denies any urinary symptoms. Per patient she has had multiple bowel movements that are black. Per patient she has not seen any blood but she has had GI bleeds in the past with similar symptoms. She states that the abdominal cramping is 6 out of 10. It is throughout the abdomen. Denies any nausea or vomiting. Denies take any other NSAIDs. Patient does report that she had a near syncopal episode today. Per patient he follows with Dr. Pruitt who gets her infusions and transfusions and has not had a transfusion in a couple of months. Per patient she did have an episode yesterday where apparently she lost her vision in her right eye for less than an hour. Per patient his went away. Per patient she had a similar episode when she had an episode of colitis in the past. Related Data Home Medications Medication Instructions Recorded Confirmed amlodipine [Norvasc] 10 mg PO DAILY 12/21/17 12/21/17 atorvastatin [Lipitor] 40 mg PO DAILY 12/21/17 12/21/17 carvedilol [Coreg] 25 mg PO BID 12/21/17 12/21/17 cetirizine [Zyrtec] 10 mg PO DAILY 12/21/17 12/21/17 guaifenesin [Mucinex] 600 mg PO Q12H 12/21/17 12/21/17 lamotrigine [Lamictal] 150 mg PO BID 12/21/17 12/21/17 lisinopril 20 mg PO DAILY 12/21/17 12/21/17 melatonin 10 mg PO HS PRN 12/21/17 12/21/17 montelukast [Singulair] 10 mg PO QPM 12/21/17 12/21/17 pantoprazole [Protonix] 40 mg PO BID 12/21/17 12/21/17 primidone 50 mg PO QID 12/21/17 12/21/17 quetiapine [Seroquel] 400 mg PO DAILY 12/21/17 12/21/17 sertraline [Zoloft] 150 mg PO DAILY 12/21/17 12/21/17 simvastatin [Zocor] 40 mg PO QPM 12/21/17 12/21/17 Allergies Allergy/AdvReac Type Severity Reaction Status Date / Time diatrizoate meglumine Allergy Severe Anaphylaxis Verified 12/21/17 17:10 gadobenic acid Allergy Severe Anaphylaxis Verified 12/21/17 17:10 gadodiamide Allergy Severe Anaphylaxis Verified 12/21/17 17:10 gadoteridol Allergy Severe Anaphylaxis Verified 12/21/17 17:10 iodixanol Allergy Severe Anaphylaxis Verified 12/21/17 17:10 iohexol Allergy Severe Anaphylaxis Verified 12/21/17 17:10 Review of Systems ROS Unobtainable All other systems reviewed negative except as stated in HPI [facility] Medical History Medical History Anemia (Acute) Aortic stenosis (Acute) Breast cancer (Acute) COPD (chronic obstructive pulmonary disease) (Acute) Colitis (Acute) Depression (Acute) Fibroid tumor (Acute) GI bleed (Acute) Hypercholesteremia (Acute) Hypertension (Acute) Port-A-Cath in place (Acute) Surgical History Surgical History History of hip replacement, total (Acute) History of laminectomy (Acute) History of lumpectomy of right breast (Acute) History of tubal ligation (Acute) Hx of cholecystectomy (Acute) Social History Social History Substance History: No History of Abuse Second Hand Smoke Exposure: No Smoking Status: Former smoker Tobacco Type: Cigarettes How Often Do You Have a Drink Containing Alcohol: 2 to 3 times a week Recent Travel in [facility] within the Last 8 Weeks: No Recent Out of Country Travel within the Last 8 Weeks: No Immunization History Tetanus Immunization: Unsure Hx Influenza Vaccine This Season: Yes Exam Narrative Exam Narrative: GENERAL: Well-groomed SKIN: Focused skin assessment warm/dry. Some paleness noted underneath eyes. HEAD: Atraumatic. Normocephalic. EYES: Pupils equal and round. No scleral icterus. No injection or drainage. ENT: No nasal bleeding or discharge. Mucous membranes pink and moist. Tongue is midline. No uvula deviation. NECK: Trachea midline. No JVD. CARDIOVASCULAR: Regular rate and rhythm. No murmur appreciated. RESPIRATORY: No accessory muscle use. Clear to auscultation. Breath sounds equal bilaterally. GASTROINTESTINAL: Abdomen soft, non-tender, nondistended. Hepatic and splenic margins not palpable. Rectal exam: Done with female nurse present. Patient does not have any active bleeding or hemorrhoids that I could noted. Patient does have dark stool noted. Hemoccult was done and was positive. MUSCULOSKELETAL: No obvious deformities. No clubbing. No cyanosis. No edema. Full range of motion of the upper and lower extremities bilaterally. 2+ pulses bilaterally. NEUROLOGICAL: Awake and alert. No obvious cranial nerve deficits. Motor grossly within normal limits. Normal speech. PSYCHIATRIC: Appropriate mood and affect; insight and judgment normal. Procedures Hemaprompt Stool Procedural Steps Taken: specimen placed in appropriate test area, developer placed on specimen and control areas and controls appropriately positive and negative Hemaprompt Stool Result: positive Course Initial Documented Vital Signs Temperature 98.5 F 12/21/17 16:58 Pulse Rate 63 12/21/17 16:58 Respiratory Rate 16 12/21/17 16:58 Blood Pressure 109/54 L 12/21/17 16:58 Pulse Oximetry 100 12/21/17 16:58 Last Documented Vital Signs Temperature 98.5 F 12/21/17 16:58 Pulse Rate 58 L 12/21/17 18:57 Respiratory Rate 16 12/21/17 17:18 Blood Pressure 101/51 L 12/21/17 17:18 Pulse Oximetry 99 12/21/17 17:18 Medical Decision Making [facility] Narrative Medical decision making narrative: 67-year-old female that presents to the ED for evaluation of possible GI bleed. Patient was properly examined and was found to have signs and symptoms consistent appears to be GI bleed. Patient's hemoglobin 7.2. Has decreased from previous H&H done last month. At this time my attending recommends transfusion of 2 units. Patient was on Protonix. Patient was told of need for admission for further evaluation. Patient agrees with this. Case discussed with Dr. Whitley who agrees with admission to her service. Differential Diagnosis Differential Diagnosis: GI bleed versus peptic ulcer disease versus diverticulitis versus symptomatic anemia Medical Records Medical records reviewed: Yes I reviewed the patient's medical records. Lab Data Lab results reviewed: Yes I reviewed the patient's lab results. Lab results narrative: Coags WNL Result diagrams: 12/21/17 18:00 12/21/17 18:00 Lab Results 12/21/17 12/21/17 12/21/17 Range/Units 18:00 18:00 18:00 WBC 5.9 (4.0-11.0) th/mm3 RBC 2.57 L (4.00-5.30) mil/mm3 Hgb 7.2 L (11.6-15.3) gm/dL Hct 21.5 L (35.0-46.0) % MCV 83.7 (80.0-100.0) fL MCH 28.0 (27.0-34.0) pg MCHC 33.5 (32.0-36.0) % RDW 21.5 H (11.6-17.2) % Plt Count 236 (150-450) th/mm3 MPV 7.9 (7.0-11.0) fL Prelim Diff (Auto) Slide review pending Neut % (Auto) 64.1 (16.0-70.0) % Lymph % (Auto) 22.7 (9.0-44.0) % [place] % (Auto) 9.9 H (0.0-8.0) % Eos % (Auto) 2.6 (0.0-4.0) % Baso % (Auto) 0.7 (0.0-2.0) % Neut # (Auto) 3.8 (1.8-7.7) th/mm3 Lymph # (Auto) 1.3 (1.0-4.8) th/mm3 [place] # (Auto) 0.6 (0.0-0.9) th/mm3 Eos # (Auto) 0.2 (0.0-0.4) th/mm3 Baso # (Auto) 0.0 (0.0-0.2) th/mm3 WBC Differential . Diff Scan Auto diff confirmed Differential Comment . Platelet Estimate Normal (Normal) Platelet Morphology Normal (Normal) Ovalocytes 1+ H (None) PT 10.1 (9.8-11.6) sec INR 1.0 Ratio APTT 25.4 (24.3-30.1) sec Sodium 136 (136-145) meq/L Potassium 4.9 (3.5-5.1) meq/L Chloride 98 (98-107) meq/L Carbon Dioxide 28.6 (21.0-32.0) meq/L Anion Gap 9 (5-15) meq/L BUN 23 H (7-18) mg/dL Creatinine 1.25 H (0.50-1.00) mg/dL Estimated GFR 43 L (>89) mL/min Random Glucose 95 (74-106) mg/dL Calcium 8.5 (8.5-10.1) mg/dL Magnesium 2.8 H (1.5-2.5) mg/dL Total Bilirubin 0.1 L (0.2-1.0) mg/dL AST 11 L (15-37) U/L ALT 15 (10-53) U/L Alkaline Phosphatase 101 (45-117) U/L Total Protein 6.6 (6.4-8.2) g/dL Albumin 3.1 L (3.4-5.0) g/dL Lipase 148 (73-393) U/L Blood Type Antibody Screen 12/21/17 Range/Units 18:00 WBC (4.0-11.0) th/mm3 RBC (4.00-5.30) mil/mm3 Hgb (11.6-15.3) gm/dL Hct (35.0-46.0) % MCV (80.0-100.0) fL MCH (27.0-34.0) pg MCHC (32.0-36.0) % RDW (11.6-17.2) % Plt Count (150-450) th/mm3 MPV (7.0-11.0) fL Prelim Diff (Auto) Neut % (Auto) (16.0-70.0) % Lymph % (Auto) (9.0-44.0) % [place] % (Auto) (0.0-8.0) % Eos % (Auto) (0.0-4.0) % Baso % (Auto) (0.0-2.0) % Neut # (Auto) (1.8-7.7) th/mm3 Lymph # (Auto) (1.0-4.8) th/mm3 [place] # (Auto) (0.0-0.9) th/mm3 Eos # (Auto) (0.0-0.4) th/mm3 Baso # (Auto) (0.0-0.2) th/mm3 WBC Differential Diff Scan Differential Comment Platelet Estimate (Normal) Platelet Morphology (Normal) Ovalocytes (None) PT (9.8-11.6) sec INR Ratio APTT (24.3-30.1) sec Sodium (136-145) meq/L Potassium (3.5-5.1) meq/L Chloride (98-107) meq/L Carbon Dioxide (21.0-32.0) meq/L Anion Gap (5-15) meq/L BUN (7-18) mg/dL Creatinine (0.50-1.00) mg/dL Estimated GFR (>89) mL/min Random Glucose (74-106) mg/dL Calcium (8.5-10.1) mg/dL Magnesium (1.5-2.5) mg/dL Total Bilirubin (0.2-1.0) mg/dL AST (15-37) U/L ALT (10-53) U/L Alkaline Phosphatase (45-117) U/L Total Protein (6.4-8.2) g/dL Albumin (3.4-5.0) g/dL Lipase (73-393) U/L Blood Type O Positive Antibody Screen Negative Imaging Data Attestation: I personally reviewed and interpreted this imaging study as follows : Radiologist's impression: Abdomen/Pelvis CT 12/21/17 17:55 CONCLUSION: 1. Nonconsolidative interstitial infiltrate in the left lower lung on the superiormost images of the scan. 2. Solitary 2 mm calcification upper pole extrarenal pelvis on the left side without evidence of hydronephrosis. This calcification could represent a nonobstructing stone or vascular calcification. Head CT 12/21/17 17:57 CONCLUSION: 1. Negative noncontrast CT brain. Discharge Plan Discharge Disposition Patient Disposition: 30 Still Patient Discharge Details Diagnosis: Acute GI bleeding, Symptomatic anemia, Acute loss of vision Physicians Team ED Provider: Brenda Barnes ED Midlevel Provider: Damian Goldman Primary Care Provider: Casey Corbett Rxs /Orders / Referrals /Forms Prescriptions: No Action atorvastatin [Lipitor] 40 mg Tablet 40 mg PO DAILY RF: 0 lamotrigine [Lamictal] 150 mg Tablet 150 mg PO BID RF: 0 primidone 50 mg Tablet 50 mg PO QID RF: 0 carvedilol [Coreg] 25 mg Tablet 25 mg PO BID RF: 0 lisinopril 20 mg Tablet 20 mg PO DAILY RF: 0 sertraline [Zoloft] 100 mg Tablet 150 mg PO DAILY RF: 0 simvastatin [Zocor] 40 mg Tablet 40 mg PO QPM RF: 0 amlodipine [Norvasc] 10 mg Tablet 10 mg PO DAILY RF: 0 pantoprazole [Protonix] 40 mg Tablet,Delayed Release (Dr/Ec) 40 mg PO BID RF: 0 montelukast [Singulair] 10 mg Tablet 10 mg PO QPM RF: 0 quetiapine [Seroquel] 400 mg Tablet 400 mg PO DAILY RF: 0 cetirizine [Zyrtec] 10 mg Capsule 10 mg PO DAILY RF: 0 melatonin 10 mg Tablet 10 mg PO HS PRN (Reason: Insomnia) RF: 0 guaifenesin [Mucinex] 600 mg Tablet Extended Release 12hr 600 mg PO Q12H RF: 0 Discharge Interventions Interventions: Vital Signs Last Done: 12/21/17 17:18 Status ED Status: With Doctor
[2017-12-21] MEDS: Pantoprazole Inj 80 MG in Sodium Chlor 0.9% Inj 100 ML IV.CONT SCH (20:33)
[2017-12-21] MEDS ORDERED: Melatonin 5 MG Tablet PO PRN (20:47)
[2017-12-21] MEDS ORDERED: Morphine Inj 4 MG/ML Vial IV.PUSH PRN (21:27)
--- NOTE | 2017-12-21 21:30 | P.HP ---
History of Present Illness Service: [facility] Primary Care Physician: Casey Corbett Chief Complaint: weakness History of Present Illness: 67-year-old female with a past medical history significant for hypertension, hyperlipidemia, aortic stenosis, COPD, anemia, colitis and a history of breast cancer presents to the emergency department for the evaluation of black, tarry stools 4 days. The patient endorses accompanying abdominal cramps. She states she has begun to feel weak and dizzy and feels like she is going to pass out upon standing or walking. She had similar symptoms approximately 1 year ago which required a transfusion. She was scoped at that time but no source of the bleeding was found. She regularly sees Dr. Pruitt for iron infusions. She denies chest pain or shortness of breath. No emesis or diarrhea. No fever/ chills. No lateralizing signs/symptoms. Inpatient Certification: I certify that the inpatient services were ordered in accordance with Medicare regulations governing the order. This includes certification that hospital inpatient services are reasonable and necessary and in the case of services not specified as inpatient-only under 42 CFR 419.22(n), that they are appropriately provided as inpatient services in accordance to with the 2-midnight benchmark under 43 CFR 412.3(e) Review of Systems All other systems reviewed negative except as stated in HPI PMFSH - History History Provided By: Patient, Family Member - Medical History Medical History: Medical History (Last Reviewed 12/21/17 @ 20:11 by ANTONIO Breaux) Anemia Aortic stenosis Breast cancer COPD (chronic obstructive pulmonary disease) Colitis Depression Fibroid tumor GI bleed Hypercholesteremia Hypertension Port-A-Cath in place - Surgical History Surgical History: Surgical History (Last Reviewed 12/21/17 @ 20:11 by ANTONIO Breaux) History of hip replacement, total History of laminectomy History of lumpectomy of right breast History of tubal ligation Hx of cholecystectomy - Tobacco History Second Hand Smoke Exposure: No Tobacco Use In Past 30 Days: No Smoking Status: Former smoker Tobacco Type: Cigarettes - Alcohol History How Often Do You Have a Drink Containing Alcohol: 2 to 3 times a week - Substance Use History Substance History: No History of Abuse - Travel History Recent Travel in the [place] Within the Last 8 Weeks: No Recent Travel Out of the Country Within the Last 8 Weeks: No - Immunization History Tetanus Immunization: Unsure Hx Influenza Vaccine This Season: Yes Medications and Allergies Active Medications: Active Medications Amlodipine Besylate (Norvasc) 10 mg PO DAILY [facility] Atorvastatin Calcium (Lipitor) 40 mg PO DAILY [facility] Carvedilol (Coreg) 25 mg PO BID [facility] Cetirizine HCl (Zyrtec) 10 mg PO DAILY [facility] Pantoprazole Sodium 80 mg/ (Sodium Chloride) 100 mls @ 10 mls/hr IV.CONT CONT LORELEI Last Admin: 12/21/17 20:33 Dose: 10 mls/hr Lamotrigine (Lamictal) 150 mg PO BID [facility] Lisinopril (Prinivil) 20 mg PO DAILY [facility] Melatonin (Melatonin) 10 mg PO HS PRN PRN Reason: Insomnia Miscellaneous (Pill Splitter) 1 each OTHER UNSCH PRN PRN Reason: PILL SPLITTER Montelukast Sodium (Singulair) 10 mg PO HS [facility] Ondansetron HCl (Zofran Odt) 4 mg SL Q6H PRN PRN Reason: NAUSEA OR VOMITING Primidone (Mysoline) 50 mg PO QID [facility] Quetiapine Fumarate (Seroquel) 400 mg PO DAILY [facility] Sertraline HCl (Zoloft) 150 mg PO DAILY [facility] Allergies Allergy/AdvReac Type Severity Reaction Status Date / Time diatrizoate meglumine Allergy Severe Anaphylaxis Verified 12/21/17 17:10 gadobenic acid Allergy Severe Anaphylaxis Verified 12/21/17 17:10 gadodiamide Allergy Severe Anaphylaxis Verified 12/21/17 17:10 gadoteridol Allergy Severe Anaphylaxis Verified 12/21/17 17:10 iodixanol Allergy Severe Anaphylaxis Verified 12/21/17 17:10 iohexol Allergy Severe Anaphylaxis Verified 12/21/17 17:10 Home Medications Medication Instructions Recorded Confirmed Type amlodipine [Norvasc] 10 mg PO DAILY 12/21/17 12/21/17 History atorvastatin [Lipitor] 40 mg PO DAILY 12/21/17 12/21/17 History carvedilol [Coreg] 25 mg PO BID 12/21/17 12/21/17 History cetirizine [Zyrtec] 10 mg PO DAILY 12/21/17 12/21/17 History guaifenesin [Mucinex] 600 mg PO Q12H 12/21/17 12/21/17 History lamotrigine [Lamictal] 150 mg PO BID 12/21/17 12/21/17 History lisinopril 20 mg PO DAILY 12/21/17 12/21/17 History melatonin 10 mg PO HS PRN 12/21/17 12/21/17 History montelukast [Singulair] 10 mg PO QPM 12/21/17 12/21/17 History pantoprazole [Protonix] 40 mg PO BID 12/21/17 12/21/17 History primidone 50 mg PO QID 12/21/17 12/21/17 History quetiapine [Seroquel] 400 mg PO DAILY 12/21/17 12/21/17 History sertraline [Zoloft] 150 mg PO DAILY 12/21/17 12/21/17 History simvastatin [Zocor] 40 mg PO QPM 12/21/17 12/21/17 History Exam Vital signs: Vital Signs 12/21/17 16:58 12/21/17 17:18 12/21/17 18:57 Temperature 98.5 F Pulse Rate 63 60 58 L Respiratory Rate 16 16 Blood Pressure 109/54 L 101/51 L Pulse Oximetry 100 99 12/21/17 20:32 Temperature Pulse Rate Respiratory Rate Blood Pressure Pulse Oximetry 98 Intake & Output 12/21/17 12/21/17 12/22/17 06:59 18:59 06:59 Weight 88.904 kg Narrative: Gen.: No acute distress Head: Normocephalic. Atraumatic. EENT: Pupils equal round and reactive to light. Nose without drainage. Airway intact. Throat without injection. Cardiovascular: Regular rate and rhythm. No murmurs, rubs or gallops. Respiratory: Lungs clear to auscultation bilaterally. No wheezes or rhonchi. Abdomen: Soft, tender to palpation in the upper quadrants, nondistended. No peritoneal signs. Musculoskeletal: No gross deformities. No edema. Skin: No obvious rashes or erythema. Neuro: Sensory and motor grossly intact. Cranial nerves II through XII grossly intact. Psych: Appropriate mood and affect Results - Labs CBC & Chem 7: 12/21/17 18:00 12/21/17 18:00 Labs: Laboratory Results - last 24 hr 12/21/17 12/21/17 12/21/17 18:00 18:00 18:00 WBC 5.9 RBC 2.57 L Hgb 7.2 L Hct 21.5 L MCV 83.7 MCH 28.0 MCHC 33.5 RDW 21.5 H Plt Count 236 MPV 7.9 Prelim Diff (Auto) Slide review pending Neut % (Auto) 64.1 Lymph % (Auto) 22.7 [place] % (Auto) 9.9 H Eos % (Auto) 2.6 Baso % (Auto) 0.7 Neut # (Auto) 3.8 Lymph # (Auto) 1.3 [place] # (Auto) 0.6 Eos # (Auto) 0.2 Baso # (Auto) 0.0 WBC Differential . Diff Scan Auto diff confirmed Differential Comment . Platelet Estimate Normal Platelet Morphology Normal Ovalocytes 1+ H PT 10.1 INR 1.0 APTT 25.4 Sodium 136 Potassium 4.9 Chloride 98 Carbon Dioxide 28.6 Anion Gap 9 BUN 23 H Creatinine 1.25 H Estimated GFR 43 L Random Glucose 95 Calcium 8.5 Magnesium 2.8 H Total Bilirubin 0.1 L AST 11 L ALT 15 Alkaline Phosphatase 101 Total Protein 6.6 Albumin 3.1 L Lipase 148 Blood Type Antibody Screen MTS Gel Crossmatch Bld Prod Order Comment 12/21/17 12/21/17 18:00 19:25 WBC RBC Hgb Hct MCV MCH MCHC RDW Plt Count MPV Prelim Diff (Auto) Neut % (Auto) Lymph % (Auto) [place] % (Auto) Eos % (Auto) Baso % (Auto) Neut # (Auto) Lymph # (Auto) [place] # (Auto) Eos # (Auto) Baso # (Auto) WBC Differential Diff Scan Differential Comment Platelet Estimate Platelet Morphology Ovalocytes PT INR APTT Sodium Potassium Chloride Carbon Dioxide Anion Gap BUN Creatinine Estimated GFR Random Glucose Calcium Magnesium Total Bilirubin AST ALT Alkaline Phosphatase Total Protein Albumin Lipase Blood Type O Positive Antibody Screen Negative MTS Gel Crossmatch See Detail Bld Prod Order Comment - Imaging Impressions Abdomen/Pelvis CT 12/21/17 17:55 CONCLUSION: 1. Nonconsolidative interstitial infiltrate in the left lower lung on the superiormost images of the scan. 2. Solitary 2 mm calcification upper pole extrarenal pelvis on the left side without evidence of hydronephrosis. This calcification could represent a nonobstructing stone or vascular calcification. Head CT 12/21/17 17:57 CONCLUSION: 1. Negative noncontrast CT brain. Caprini VTE Risk Assessment Caprini VTE Risk Assessment: Moderate/High Risk (score >= 2) Caprini Risk Assessment Model: Point Value = 1 Point Value = 2 Point Value = 3 Point Value = 5 Age 41-60 Minor surgery BMI > 25 kg/m2 Swollen legs Varicose veins or History of unexplained or recurrent spontaneous Oral contraceptives or hormone replacement Sepsis (< 1 month) Serious lung disease, including pneumonia (< 1 month) Abnormal pulmonary function Acute myocardial infarction Congestive heart failure (< 1 month) History of inflammatory bowel disease Medical patient at bed rest Age 61-74 Arthroscopic surgery Major open surgery (> 45 min) Laparoscopic surgery (> 45 min) Malignancy Confined to bed (> 72 hours) Immobilizing plaster cast Central venous access Age >= 75 History of VTE Family history of VTE Factor V Leiden Prothrombin [id number] Lupus anticoagulant Anticardiolipin antibodies Elevated serum homocysteine Heparin-induced thrombocytopenia Other congenital or acquired thrombophilia Stroke (< 1 month) Elective arthroplasty Hip, pelvis, or leg fracture Acute spinal cord injury (< 1 month) Prophylaxis Regimen: Total Risk Factor Score Risk Level Prophylaxis Regimen 0-1 Low Early ambulation 2 Moderate Order ONE of the following: *Sequential Compression Device (SCD) *Heparin 5000 units SQ BID 3-4 Higher Order ONE of the following medications: *Heparin 5000 units SQ TID *Enoxaparin/Lovenox 40 mg SQ daily (WT < 150 kg, CrCl > 30 mL/min) *Enoxaparin/Lovenox 30 mg SQ daily (WT < 150 kg, CrCl > 10-29 mL/min) *Enoxaparin/Lovenox 30 mg SQ BID (WT < 150 kg, CrCl > 30 mL/min) AND/OR *Sequential Compression Device (SCD) 5 or more Highest Order ONE of the following medications: *Heparin 5000 units SQ TID (Preferred with Epidurals) *Enoxaparin/Lovenox 40 mg SQ daily (WT < 150 kg, CrCl > 30 mL/min) *Enoxaparin/Lovenox 30 mg SQ daily (WT < 150 kg, CrCl > 10-29 mL/min) *Enoxaparin/Lovenox 30 mg SQ BID (WT < 150 kg, CrCl > 30 mL/min) AND *Sequential Compression Device (SCD) Assessment and Plan - Plan Assessment/plan: 1. GI bleed/presyncope/symptomatic anemia H&H 7.2/21.5 Hemoccult positive in the ED with history of black, tarry stools Transfuse 2 units packed red blood cells Protonix drip GI consulted, appreciate recommendations 2. Hypertension/hyperlipidemia/COPD Continue home medications FEN npo Electrolytes: Monitor and replete as needed
[2017-12-21] MEDS: Primidone 50 MG Tablet PO SCH (23:14)
[2017-12-21] MEDS: Montelukast 10 MG Tablet PO SCH (23:14)
[2017-12-21] MEDS: Carvedilol 12.5 MG Tablet PO SCH (23:15)
[2017-12-21] MEDS: lamoTRIgine 100 MG Tablet PO SCH (23:16)
[2017-12-22] MEDS: Pantoprazole Inj 80 MG in Sodium Chlor 0.9% Inj 100 ML IV.CONT SCH ×2 (06:12→20:54)
[2017-12-22 06:16] LABS: Baso % (Auto) 0.6 % (0.0-2.0); Eos # (Auto) 0.2 th/mm3 (0.0-0.4); Hematocrit 28.1 % (35.0-46.0); Hemoglobin 9.5 gm/dL (11.6-15.3); Lymph # (Auto) 1.6 th/mm3 (1.0-4.8); Lymph % (Auto) 26.2 % (9.0-44.0); Mean Corpuscular HGB Conc 33.8 % (32.0-36.0); Mean Corpuscular Hemoglobin 28.6 pg (27.0-34.0); Mean Corpuscular Volume 84.5 fL (80.0-100.0); Mean Platelet Volume 7.1 fL (7.0-11.0); Mono # (Auto) 0.5 th/mm3 (0.0-0.9); Mono % (Auto) 8.8 % (0.0-8.0); Neut # (Auto) 3.7 th/mm3 (1.8-7.7); Neut % (Auto) 61.4 % (16.0-70.0); Platelet Count 224 th/mm3 (150-450); Red Blood Count 3.33 mil/mm3 (4.00-5.30); Red Cell Distribution Width 19.3 % (11.6-17.2); White Blood Count 6.1 th/mm3 (4.0-11.0)
[2017-12-22 06:36] LABS: Calcium 6.4 mg/dL (8.5-10.1); Carbon Dioxide 26.9 meq/L (21.0-32.0); Potassium 3.9 meq/L (3.5-5.1)
[2017-12-22 06:59] LABS: Total Protein 5.4 g/dL (6.4-8.2)
[2017-12-22] MEDS: Carvedilol 12.5 MG Tablet PO SCH ×2 (09:40→20:58)
[2017-12-22] MEDS: amLODIPine 10 MG Tablet PO SCH ×2 (09:40→13:36)
[2017-12-22] MEDS: lamoTRIgine 100 MG Tablet PO SCH ×2 (09:41→20:58)
[2017-12-22] MEDS: Lisinopril 20 MG Tablet PO SCH (09:41)
[2017-12-22] MEDS: Primidone 50 MG Tablet PO SCH ×4 (09:42→21:03)
[2017-12-22] MEDS: Sertraline 100 MG Tablet PO SCH (09:44)
--- NOTE | 2017-12-22 09:46 | P.CONGI ---
History of Present Illness Consult date: 12/22/17 Consult reason: Upper GIB Chief complaint: Acute GI Bleed, symtomatic anemia, loss of vision History of Present Illness: This is a 67 yo F with PMH significant for COPD, , anemia who is being managed with iron transfusions by Dr. Pruitt, history of breast cancer in remission for 10 years, HTN, and history of GIB who presented to the ER last night with complaints of black, tarry stools for the past four days. Pt reports symptoms began with intermittent abdominal cramping and then a day later she began having black, tarry stools which have been increasing in frequency since. Reports light headedness with position change and nausea but no emesis. Pt was seen by our service in January of last year for same complaint , EGD revealed gastritis, short segment Ashton's and hiatal hernia. Pathology ( stomach, antrum) reactive/chemical gastropathy (duodenum) without significant histopathologic abnormality (distal esophagus) gastric mucosa with minimal chronic inflammation. Pt reports she has been on nursing home Protonix which has controlled her heartburn. She states she has had recurrent issues with colitis and one time it was so severe she became septic. Last colonoscopy in 2016 consistent with colitis. She denies UC, crohns, and does not take medication routinely for colitis so it sounds like recurrent infectious colitis. She denies any BRBPR at this time. Pt reports a couple liquor drinks a week, quit smoking a year and a half ago. Takes a daily baby ASA for , very rare use of NSAIDs. <Lisset Nogueira - Last Filed: 12/22/17 09:30> Review of Systems Gastrointestinal: Reports abdominal pain, Reports black, tarry stools, Reports heartburn, Reports nausea, Denies bright, red blood in stools, Denies incontinent of stools, Denies vomiting <Lisset Nogueira - Last Filed: 12/22/17 09:30> PMFSH - History History Provided By: Patient - Medical History Medical History: Medical History (Last Reviewed 12/21/17 @ 20:11 by ANTONIO Breaux) Anemia Aortic stenosis Breast cancer COPD (chronic obstructive pulmonary disease) Colitis Depression Fibroid tumor GI bleed Hypercholesteremia Hypertension Port-A-Cath in place - Surgical History Surgical History: Surgical History (Last Reviewed 12/21/17 @ 20:11 by ANTONIO Breaux) History of hip replacement, total History of laminectomy History of lumpectomy of right breast History of tubal ligation Hx of cholecystectomy - Tobacco History Second Hand Smoke Exposure: No Tobacco Use In Past 30 Days: No Smoking Status: Former smoker Tobacco Type: Cigarettes - Alcohol History How Often Do You Have a Drink Containing Alcohol: 2 to 3 times a week - Substance Use History Substance History: No History of Abuse - Travel History Recent Travel in the [place] Within the Last 8 Weeks: No Recent Travel Out of the Country Within the Last 8 Weeks: No - Immunization History Tetanus Immunization: Unsure Hx Influenza Vaccine This Season: Yes <Lisset Nogueira - Last Filed: 12/22/17 09:30> - Medical History Medical History: Medical History (Last Reviewed 12/21/17 @ 20:11 by ANTONIO Breaux) Anemia Aortic stenosis Breast cancer COPD (chronic obstructive pulmonary disease) Colitis Depression Fibroid tumor GI bleed Hypercholesteremia Hypertension Port-A-Cath in place - Surgical History Surgical History: Surgical History (Last Reviewed 12/21/17 @ 20:11 by ANTONIO Breaux) History of hip replacement, total History of laminectomy History of lumpectomy of right breast History of tubal ligation Hx of cholecystectomy <Scar Gutierrez - Last Filed: 12/22/17 15:13> Medications and Allergies Active Medications: Active Medications Amlodipine Besylate (Norvasc) 10 mg PO DAILY [facility] Atorvastatin Calcium (Lipitor) 40 mg PO DAILY [facility] Carvedilol (Coreg) 25 mg PO BID [facility] Last Admin: 12/21/17 23:15 Dose: 25 mg Cetirizine HCl (Zyrtec) 10 mg PO DAILY [facility] Pantoprazole Sodium 80 mg/ (Sodium Chloride) 100 mls @ 10 mls/hr IV.CONT CONT [facility] Last Admin: 12/22/17 06:12 Dose: 10 mls/hr Lamotrigine (Lamictal) 150 mg PO BID [facility] Last Admin: 12/21/17 23:16 Dose: 150 mg Lisinopril (Prinivil) 20 mg PO DAILY [facility] Melatonin (Melatonin) 10 mg PO HS PRN PRN Reason: Insomnia Miscellaneous (Pill Splitter) 1 each OTHER UNSCH PRN PRN Reason: PILL SPLITTER Montelukast Sodium (Singulair) 10 mg PO HS [facility] Last Admin: 12/21/17 23:14 Dose: 10 mg Morphine Sulfate (Morphine Inj) 4 mg IV.PUSH Q4H PRN PRN Reason: pain 6-10 Ondansetron HCl (Zofran Odt) 4 mg SL Q6H PRN PRN Reason: NAUSEA OR VOMITING Primidone (Mysoline) 50 mg PO QID [facility] Last Admin: 12/21/17 23:14 Dose: 50 mg Quetiapine Fumarate (Seroquel) 400 mg PO HS [facility] Last Admin: 12/21/17 23:15 Dose: 400 mg Sertraline HCl (Zoloft) 150 mg PO DAILY [facility] <Lisset Nogueira - Last Filed: 12/22/17 09:30> Active Medications: Active Medications Amlodipine Besylate (Norvasc) 10 mg PO DAILY [facility] Last Admin: 12/22/17 13:36 Dose: Not Given Atorvastatin Calcium (Lipitor) 40 mg PO DAILY [facility] Last Admin: 12/22/17 09:48 Dose: 40 mg Carvedilol (Coreg) 25 mg PO BID [facility] Last Admin: 12/22/17 09:40 Dose: 25 mg Cetirizine HCl (Zyrtec) 10 mg PO DAILY [facility] Last Admin: 12/22/17 09:43 Dose: 10 mg Pantoprazole Sodium 80 mg/ (Sodium Chloride) 100 mls @ 10 mls/hr IV.CONT CONT [facility] Last Admin: 12/22/17 06:12 Dose: 10 mls/hr Lamotrigine (Lamictal) 150 mg PO BID [facility] Last Admin: 12/22/17 09:41 Dose: 150 mg Lisinopril (Prinivil) 20 mg PO DAILY [facility] Last Admin: 12/22/17 09:41 Dose: 20 mg Melatonin (Melatonin) 10 mg PO HS PRN PRN Reason: Insomnia Miscellaneous (Pill Splitter) 1 each OTHER UNSCH PRN PRN Reason: PILL SPLITTER Montelukast Sodium (Singulair) 10 mg PO [facility] Last Admin: 12/21/17 23:14 Dose: 10 mg Morphine Sulfate (Morphine Inj) 4 mg IV.PUSH Q4H PRN PRN Reason: pain 6-10 Ondansetron HCl (Zofran Odt) 4 mg SL Q6H PRN PRN Reason: NAUSEA OR VOMITING Primidone (Mysoline) 50 mg PO QID [facility] Last Admin: 12/22/17 09:42 Dose: 50 mg Quetiapine Fumarate (Seroquel) 400 mg PO HS [facility] Last Admin: 12/21/17 23:15 Dose: 400 mg Sertraline HCl (Zoloft) 150 mg PO DAILY [facility] Last Admin: 12/22/17 09:44 Dose: 150 mg <Scar Gutierrez E - Last Filed: 12/22/17 15:13> Allergies Allergy/AdvReac Type Severity Reaction Status Date / Time diatrizoate meglumine Allergy Severe Anaphylaxis Verified 12/21/17 17:10 gadobenic acid Allergy Severe Anaphylaxis Verified 12/21/17 17:10 gadodiamide Allergy Severe Anaphylaxis Verified 12/21/17 17:10 gadoteridol Allergy Severe Anaphylaxis Verified 12/21/17 17:10 iodixanol Allergy Severe Anaphylaxis Verified 12/21/17 17:10 iohexol Allergy Severe Anaphylaxis Verified 12/21/17 17:10 Home Medications Medication Instructions Recorded Confirmed Type amlodipine [Norvasc] 10 mg PO DAILY 12/21/17 12/21/17 History atorvastatin [Lipitor] 40 mg PO DAILY 12/21/17 12/21/17 History carvedilol [Coreg] 25 mg PO BID 12/21/17 12/21/17 History cetirizine [Zyrtec] 10 mg PO DAILY 12/21/17 12/21/17 History guaifenesin [Mucinex] 600 mg PO Q12H 12/21/17 12/21/17 History lamotrigine [Lamictal] 150 mg PO BID 12/21/17 12/21/17 History lisinopril 20 mg PO DAILY 12/21/17 12/21/17 History melatonin 10 mg PO HS PRN 12/21/17 12/21/17 History montelukast [Singulair] 10 mg PO QPM 12/21/17 12/21/17 History pantoprazole [Protonix] 40 mg PO BID 12/21/17 12/21/17 History primidone 50 mg PO QID 12/21/17 12/21/17 History quetiapine [Seroquel] 400 mg PO DAILY 12/21/17 12/21/17 History sertraline [Zoloft] 150 mg PO DAILY 12/21/17 12/21/17 History simvastatin [Zocor] 40 mg PO QPM 12/21/17 12/21/17 History Exam Vital signs: Vital Signs 12/21/17 16:58 12/21/17 17:18 12/21/17 18:57 Temperature 98.5 F Pulse Rate 63 60 58 L Respiratory Rate 16 16 Blood Pressure 109/54 L 101/51 L Pulse Oximetry 100 99 12/21/17 20:32 12/21/17 21:47 12/21/17 21:50 Temperature 98.2 F 98.2 F Pulse Rate 67 67 Respiratory Rate 22 18 Blood Pressure 144/65 H 144/65 H Pulse Oximetry 98 100 99 12/21/17 22:12 12/21/17 22:19 12/21/17 23:21 Temperature 98.0 F 98.1 F Pulse Rate 73 67 Respiratory Rate 16 16 Blood Pressure 134/88 145/74 H Pulse Oximetry 94 L 100 100 12/22/17 00:51 12/22/17 00:53 12/22/17 01:08 Temperature 97.7 F 97.9 F Pulse Rate 62 62 Respiratory Rate 18 17 Blood Pressure 104/52 L 112/53 L Pulse Oximetry 98 100 12/22/17 03:55 12/22/17 04:03 12/22/17 04:59 Temperature 98.0 F Pulse Rate 63 99 H 78 Respiratory Rate 16 Blood Pressure 114/56 L Pulse Oximetry 100 12/22/17 08:00 Temperature 98.2 F Pulse Rate 68 Respiratory Rate 16 Blood Pressure 142/63 H Pulse Oximetry 100 Intake & Output 12/21/17 12/22/17 12/22/17 18:59 06:59 18:59 Intake Total 1900 / 1900 Balance 1900 / 1900 Weight 88.904 kg Intake: IV 1100 / 1100 Protonix Inj 80 MG In NS Inj 100 / 100 100 ML @ 10 mls/hr IV.CONT CONT [facility] Rx#:[id number] NS Inj 1,000 ML @ Wide Open IV. 1000 / 1000 SIG BOLUS ONE Rx#:[id number] Intake (Blood Product) Amt 800 / 800 Rbc As-3 Leukoreduced Unit 400 / 400 [id number] Rbc As-3 Leukoreduced Unit 400 / 400 [id number] Other: # Voids 2 1 Date of Last Bowel Movement 12/21/17 <Lisset Nogueira - Last Filed: 12/22/17 09:30> Vital signs: Vital Signs 12/21/17 16:58 12/21/17 17:18 12/21/17 18:57 Temperature 98.5 F Pulse Rate 63 60 58 L Respiratory Rate 16 16 Blood Pressure 109/54 L 101/51 L Pulse Oximetry 100 99 12/21/17 20:32 12/21/17 21:47 12/21/17 21:50 Temperature 98.2 F 98.2 F Pulse Rate 67 67 Respiratory Rate 22 18 Blood Pressure 144/65 H 144/65 H Pulse Oximetry 98 100 99 12/21/17 22:12 12/21/17 22:19 12/21/17 23:21 Temperature 98.0 F 98.1 F Pulse Rate 73 67 Respiratory Rate 16 16 Blood Pressure 134/88 145/74 H Pulse Oximetry 94 L 100 100 12/22/17 00:51 12/22/17 00:53 12/22/17 01:08 Temperature 97.7 F 97.9 F Pulse Rate 62 62 Respiratory Rate 18 17 Blood Pressure 104/52 L 112/53 L Pulse Oximetry 98 100 12/22/17 03:55 12/22/17 04:03 12/22/17 04:59 Temperature 98.0 F Pulse Rate 63 99 H 78 Respiratory Rate 16 Blood Pressure 114/56 L Pulse Oximetry 100 12/22/17 08:00 12/22/17 12:00 Temperature 98.2 F 98.5 F Pulse Rate 68 67 Respiratory Rate 16 18 Blood Pressure 142/63 H 133/60 Pulse Oximetry 100 100 Intake & Output 12/21/17 12/22/17 12/22/17 18:59 06:59 18:59 Intake Total 1899 / 1900 Balance 190 / 1900 Weight 88.904 kg Intake: IV 1100 / 1100 Protonix Inj 80 MG In NS Inj 100 / 100 100 ML @ 10 mls/hr IV.CONT CONT [facility] Rx#:[id number] NS Inj 1,000 ML @ Wide Open IV. 1000 / 1000 SIG BOLUS ONE Rx#:[id number] Intake (Blood Product) Amt 800 / 800 Rbc As-3 Leukoreduced Unit 400 / 400 [id number] Rbc As-3 Leukoreduced Unit 400 / 400 [id number] Other: # Voids 2 1 Date of Last Bowel Movement 12/21/17 <Scar Gutierrez E - Last Filed: 12/22/17 15:13> Results - Labs CBC & Chem 7: 12/22/17 05:55 12/22/17 05:55 Labs: Laboratory Results - last 24 hr 12/21/17 12/21/17 12/21/17 18:00 18:00 18:00 WBC 5.9 RBC 2.57 L Hgb 7.2 L Hct 21.5 L MCV 83.7 MCH 28.0 MCHC 33.5 RDW 21.5 H Plt Count 236 MPV 7.9 Prelim Diff (Auto) Slide review pending Neut % (Auto) 64.1 Lymph % (Auto) 22.7 Mayes % (Auto) 9.9 H Eos % (Auto) 2.6 Baso % (Auto) 0.7 Neut # (Auto) 3.8 Lymph # (Auto) 1.3 Mayes # (Auto) 0.6 Eos # (Auto) 0.2 Baso # (Auto) 0.0 WBC Differential . Diff Scan Auto diff confirmed Differential Comment . Platelet Estimate Normal Platelet Morphology Normal Ovalocytes 1+ H PT 10.1 INR 1.0 APTT 25.4 Sodium 136 Potassium 4.9 Chloride 98 Carbon Dioxide 28.6 Anion Gap 9 BUN 23 H Creatinine 1.25 H Estimated GFR 43 L Random Glucose 95 Calcium 8.5 Prot Corrected Calcium Magnesium 2.8 H Total Bilirubin 0.1 L AST 11 L ALT 15 Alkaline Phosphatase 101 Total Protein 6.6 Albumin 3.1 L Lipase 148 Blood Type Antibody Screen MTS Gel Crossmatch Bld Prod Order Comment 12/21/17 12/21/17 12/22/17 18:00 19:25 05:55 WBC 6.1 RBC 3.33 L Hgb 9.5 L D Hct 28.1 L MCV 84.5 MCH 28.6 MCHC 33.8 RDW 19.3 H Plt Count 224 MPV 7.1 Prelim Diff (Auto) Neut % (Auto) 61.4 Lymph % (Auto) 26.2 Mayes % (Auto) 8.8 H Eos % (Auto) 3.0 Baso % (Auto) 0.6 Neut # (Auto) 3.7 Lymph # (Auto) 1.6 Mayes # (Auto) 0.5 Eos # (Auto) 0.2 Baso # (Auto) 0.0 WBC Differential . Diff Scan Differential Comment Auto diff final Platelet Estimate Platelet Morphology Ovalocytes PT INR APTT Sodium Potassium Chloride Carbon Dioxide Anion Gap BUN Creatinine Estimated GFR Random Glucose Calcium Prot Corrected Calcium Magnesium Total Bilirubin AST ALT Alkaline Phosphatase Total Protein Albumin Lipase Blood Type O Positive Antibody Screen Negative MTS Gel Crossmatch See Detail Bld Prod Order Comment 12/22/17 05:55 WBC RBC Hgb Hct MCV MCH MCHC RDW Plt Count MPV Prelim Diff (Auto) Neut % (Auto) Lymph % (Auto) Mayes % (Auto) Eos % (Auto) Baso % (Auto) Neut # (Auto) Lymph # (Auto) Mayes # (Auto) Eos # (Auto) Baso # (Auto) WBC Differential Diff Scan Differential Comment Platelet Estimate Platelet Morphology Ovalocytes PT INR APTT Sodium 145 Potassium 3.9 D Chloride 111 H D Carbon Dioxide 26.9 Anion Gap 7 BUN 16 Creatinine 0.70 Estimated GFR 83 L Random Glucose 90 Calcium 6.4 L* D Prot Corrected Calcium 7.2 L* Magnesium Total Bilirubin AST ALT Alkaline Phosphatase Total Protein 5.4 L D Albumin Lipase Blood Type Antibody Screen MTS Gel Crossmatch Bld Prod Order Comment - Imaging Impressions Abdomen/Pelvis CT 12/21/17 17:55 CONCLUSION: 1. Nonconsolidative interstitial infiltrate in the left lower lung on the superiormost images of the scan. 2. Solitary 2 mm calcification upper pole extrarenal pelvis on the left side without evidence of hydronephrosis. This calcification could represent a nonobstructing stone or vascular calcification. Head CT 12/21/17 17:57 CONCLUSION: 1. Negative noncontrast CT brain. <Lisset Nogueira - Last Filed: 12/22/17 09:30> - Labs CBC & Chem 7: 12/22/17 05:55 12/22/17 05:55 Labs: Laboratory Results - last 24 hr 12/21/17 12/21/17 12/21/17 18:00 18:00 18:00 WBC 5.9 RBC 2.57 L Hgb 7.2 L Hct 21.5 L MCV 83.7 MCH 28.0 MCHC 33.5 RDW 21.5 H Plt Count 236 MPV 7.9 Prelim Diff (Auto) Slide review pending Neut % (Auto) 64.1 Lymph % (Auto) 22.7 Mayes % (Auto) 9.9 H Eos % (Auto) 2.6 Baso % (Auto) 0.7 Neut # (Auto) 3.8 Lymph # (Auto) 1.3 Mayes # (Auto) 0.6 Eos # (Auto) 0.2 Baso # (Auto) 0.0 WBC Differential . Diff Scan Auto diff confirmed Differential Comment . Platelet Estimate Normal Platelet Morphology Normal Ovalocytes 1+ H PT 10.1 INR 1.0 APTT 25.4 Sodium 136 Potassium 4.9 Chloride 98 Carbon Dioxide 28.6 Anion Gap 9 BUN 23 H Creatinine 1.25 H Estimated GFR 43 L Random Glucose 95 Calcium 8.5 Prot Corrected Calcium Magnesium 2.8 H Total Bilirubin 0.1 L AST 11 L ALT 15 Alkaline Phosphatase 101 Total Protein 6.6 Albumin 3.1 L Lipase 148 Blood Type Antibody Screen MTS Gel Crossmatch Bld Prod Order Comment 12/21/17 12/21/17 12/22/17 18:00 19:25 05:55 WBC 6.1 RBC 3.33 L Hgb 9.5 L D Hct 28.1 L MCV 84.5 MCH 28.6 MCHC 33.8 RDW 19.3 H Plt Count 224 MPV 7.1 Prelim Diff (Auto) Neut % (Auto) 61.4 Lymph % (Auto) 26.2 Mayes % (Auto) 8.8 H Eos % (Auto) 3.0 Baso % (Auto) 0.6 Neut # (Auto) 3.7 Lymph # (Auto) 1.6 Mayes # (Auto) 0.5 Eos # (Auto) 0.2 Baso # (Auto) 0.0 WBC Differential . Diff Scan Differential Comment Auto diff final Platelet Estimate Platelet Morphology Ovalocytes PT INR APTT Sodium Potassium Chloride Carbon Dioxide Anion Gap BUN Creatinine Estimated GFR Random Glucose Calcium Prot Corrected Calcium Magnesium Total Bilirubin AST ALT Alkaline Phosphatase Total Protein Albumin Lipase Blood Type O Positive Antibody Screen Negative MTS Gel Crossmatch See Detail Bld Prod Order Comment 12/22/17 05:55 WBC RBC Hgb Hct MCV MCH MCHC RDW Plt Count MPV Prelim Diff (Auto) Neut % (Auto) Lymph % (Auto) Mayes % (Auto) Eos % (Auto) Baso % (Auto) Neut # (Auto) Lymph # (Auto) Mayes # (Auto) Eos # (Auto) Baso # (Auto) WBC Differential Diff Scan Differential Comment Platelet Estimate Platelet Morphology Ovalocytes PT INR APTT Sodium 145 Potassium 3.9 D Chloride 111 H D Carbon Dioxide 26.9 Anion Gap 7 BUN 16 Creatinine 0.70 Estimated GFR 83 L Random Glucose 90 Calcium 6.4 L* D Prot Corrected Calcium 7.2 L* Magnesium Total Bilirubin AST ALT Alkaline Phosphatase Total Protein 5.4 L D Albumin Lipase Blood Type Antibody Screen MTS Gel Crossmatch Bld Prod Order Comment - Imaging Impressions Abdomen/Pelvis CT 12/21/17 17:55 CONCLUSION: 1. Nonconsolidative interstitial infiltrate in the left lower lung on the superiormost images of the scan. 2. Solitary 2 mm calcification upper pole extrarenal pelvis on the left side without evidence of hydronephrosis. This calcification could represent a nonobstructing stone or vascular calcification. Head CT 12/21/17 17:57 CONCLUSION: 1. Negative noncontrast CT brain. <Scar Gutierrez - Last Filed: 12/22/17 15:13> Assessment and Plan (1) Acute GI bleeding Status: Acute Code(s): K92.2 - Gastrointestinal hemorrhage, unspecified - Plan Assessment: - Anemia with reports of black, tarry stools x 4 days Pt with long history of anemia, previously on oral iron supplements but states this was discontinued because it was making her stools black, currently being managed on iron transfusions by Dr. Pruitt. History of GIB - EGD in January 2017 revealed gastritis, short segment Ashton' s and hiatal hernia. Pathology (stomach, antrum) reactive/chemical gastropathy (duodenum) without significant histopathologic abnormality (distal esophagus) gastric mucosa with minimal chronic inflammation. Pt reports she has been on nursing home Protonix which has controlled her heartburn. Daily baby ASA for aortic stenosis, rare use of NSAIDs. Couple liquor drinks a week. Quit smoking a year and a half ago. - Abdominal cramping- began 4 days ago, intermittent, unrelated to BMs CT abdomen and pelvis WO IV contrast --> Solitary 2 mm calcification upper pole extrarenal pelvis on the left side without evidence of hydronephrosis. This calcification could represent a nonobstructing stone or vascular calcification. - Recurrent colitis- States at one time it was so severe she became septic. Last colonoscopy in 2015 consistent with colitis. She denies UC, crohns, and does not take medication routinely for colitis so it sounds like recurrent infectious colitis. She denies any BRBPR at this time. Plan: EGD today Obtain consent Keep NPO Protonix gtt Monitor H/H Further recommendations based on EGD findings Pt has been seen and examined by myself and Dr. Gutierrez and this note is written on his behalf <Lisset Nogueira - Last Filed: 12/22/17 09:30> (1) Acute GI bleeding Status: Acute Code(s): K92.2 - Gastrointestinal hemorrhage, unspecified - Attending Attestation Patient seen and examined Agree with above Proceed with EGD today <Scar Gutierrez - Last Filed: 12/22/17 15:13>
[2017-12-22] MEDS ORDERED: Calcium Gluconate Inj 1 GM in Sodium Chlor 0.9% Inj 100 ML IV.SIG ONE (10:08)
--- NOTE | 2017-12-22 10:08 | P.PN ---
Subjective Interval history: Follow-up visit HTN, HLD, aortic stenosis, colitis, history of bowel obstruction , GI bleed. Patient seen and examined today. Daughter at the bedside. Reports she is doing okay, feeling tired. States she was not prepped for colonoscopy. States she was n.p.o. overnight. Complains of continued abdominal cramping and pain midepigastric region, right lower abdomen, 8/10, tender to palpate, does not know what aggravates the cramping but states that pain medication is working. Does not radiate anywhere. Patient states that she had this problem before of having low blood kidneys and she gets transfusions. Patient also states that she had colonoscopy last year but she was a poor prep and also that she has some "obstruction" they were not able to really visualize anything. States that she started taking aspirin about a month ago as per cardiology advice. Otherwise,she denies chest pain or shortness of breath. No emesis or diarrhea. No fever/chills. Physical Exam Vital signs: Vital Signs 12/21/17 16:58 12/21/17 17:18 12/21/17 18:57 Temperature 98.5 F Pulse Rate 63 60 58 L Respiratory Rate 16 16 Blood Pressure 109/54 L 101/51 L Pulse Oximetry 100 99 12/21/17 20:32 12/21/17 21:47 12/21/17 21:50 Temperature 98.2 F 98.2 F Pulse Rate 67 67 Respiratory Rate 22 18 Blood Pressure 144/65 H 144/65 H Pulse Oximetry 98 100 99 12/21/17 22:12 12/21/17 22:19 12/21/17 23:21 Temperature 98.0 F 98.1 F Pulse Rate 73 67 Respiratory Rate 16 16 Blood Pressure 134/88 145/74 H Pulse Oximetry 94 L 100 100 12/22/17 00:51 12/22/17 00:53 12/22/17 01:08 Temperature 97.7 F 97.9 F Pulse Rate 62 62 Respiratory Rate 18 17 Blood Pressure 104/52 L 112/53 L Pulse Oximetry 98 100 12/22/17 03:55 12/22/17 04:03 12/22/17 04:59 Temperature 98.0 F Pulse Rate 63 99 H 78 Respiratory Rate 16 Blood Pressure 114/56 L Pulse Oximetry 100 12/22/17 08:00 Temperature 98.2 F Pulse Rate 68 Respiratory Rate 16 Blood Pressure 142/63 H Pulse Oximetry 100 Intake & Output 12/21/17 12/22/17 12/22/17 18:59 06:59 18:59 Intake Total 1900 / 1900 Balance 1900 / 1900 Weight 88.904 kg Intake: IV 1100 / 1100 Protonix Inj 80 MG In NS Inj 100 / 100 100 ML @ 10 mls/hr IV.CONT CONT LORELEI Rx#:[id number] NS Inj 1,000 ML @ Wide Open IV. 1000 / 1000 SIG BOLUS ONE Rx#:[id number] Intake (Blood Product) Amt 800 / 800 Rbc As-3 Leukoreduced Unit 400 / 400 [id number] Rbc As-3 Leukoreduced Unit 400 / 400 [id number] Other: # Voids 2 1 Date of Last Bowel Movement 12/21/17 Narrative: GENERAL: This is a well-nourished, well-developed patient, in no apparent distress. SKIN: Warm and dry. HEENT: Normocephalic. Pupils equal round and reactive. Nose without bleeding. Airway patent. NECK: Trachea midline. CARDIOVASCULAR: Regular rate and rhythm with murmurs. No gallops, or rubs. RESPIRATORY: Clear to auscultation. Breath sounds equal bilaterally. No wheezes , rales, or rhonchi. GASTROINTESTINAL: Abdomen soft, nondistended. Bowel Sounds hypoactive. Tender to palpate midepigastric, RLQ MUSCULOSKELETAL: Extremities without clubbing, cyanosis, or edema. NEUROLOGICAL: Awake and alert. Oriented to time, place, person. No focal neuro deficit. Moves all extremities. Normal speech. Results - Labs CBC & Chem 7: 12/22/17 05:55 12/22/17 05:55 Laboratory Results - last 24 hr 12/21/17 12/21/17 12/21/17 18:00 18:00 18:00 WBC 5.9 RBC 2.57 L Hgb 7.2 L Hct 21.5 L MCV 83.7 MCH 28.0 MCHC 33.5 RDW 21.5 H Plt Count 236 MPV 7.9 Prelim Diff (Auto) Slide review pending Neut % (Auto) 64.1 Lymph % (Auto) 22.7 [place] % (Auto) 9.9 H Eos % (Auto) 2.6 Baso % (Auto) 0.7 Neut # (Auto) 3.8 Lymph # (Auto) 1.3 [place] # (Auto) 0.6 Eos # (Auto) 0.2 Baso # (Auto) 0.0 WBC Differential . Diff Scan Auto diff confirmed Differential Comment . Platelet Estimate Normal Platelet Morphology Normal Ovalocytes 1+ H PT 10.1 INR 1.0 APTT 25.4 Sodium 136 Potassium 4.9 Chloride 98 Carbon Dioxide 28.6 Anion Gap 9 BUN 23 H Creatinine 1.25 H Estimated GFR 43 L Random Glucose 95 Calcium 8.5 Prot Corrected Calcium Magnesium 2.8 H Total Bilirubin 0.1 L AST 11 L ALT 15 Alkaline Phosphatase 101 Total Protein 6.6 Albumin 3.1 L Lipase 148 Blood Type Antibody Screen MTS Gel Crossmatch Bld Prod Order Comment 12/21/17 12/21/17 12/22/17 18:00 19:25 05:55 WBC 6.1 RBC 3.33 L Hgb 9.5 L D Hct 28.1 L MCV 84.5 MCH 28.6 MCHC 33.8 RDW 19.3 H Plt Count 224 MPV 7.1 Prelim Diff (Auto) Neut % (Auto) 61.4 Lymph % (Auto) 26.2 [place] % (Auto) 8.8 H Eos % (Auto) 3.0 Baso % (Auto) 0.6 Neut # (Auto) 3.7 Lymph # (Auto) 1.6 [place] # (Auto) 0.5 Eos # (Auto) 0.2 Baso # (Auto) 0.0 WBC Differential . Diff Scan Differential Comment Auto diff final Platelet Estimate Platelet Morphology Ovalocytes PT INR APTT Sodium Potassium Chloride Carbon Dioxide Anion Gap BUN Creatinine Estimated GFR Random Glucose Calcium Prot Corrected Calcium Magnesium Total Bilirubin AST ALT Alkaline Phosphatase Total Protein Albumin Lipase Blood Type O Positive Antibody Screen Negative MTS Gel Crossmatch See Detail Bld Prod Order Comment 12/22/17 05:55 WBC RBC Hgb Hct MCV MCH MCHC RDW Plt Count MPV Prelim Diff (Auto) Neut % (Auto) Lymph % (Auto) [place] % (Auto) Eos % (Auto) Baso % (Auto) Neut # (Auto) Lymph # (Auto) [place] # (Auto) Eos # (Auto) Baso # (Auto) WBC Differential Diff Scan Differential Comment Platelet Estimate Platelet Morphology Ovalocytes PT INR APTT Sodium 145 Potassium 3.9 D Chloride 111 H D Carbon Dioxide 26.9 Anion Gap 7 BUN 16 Creatinine 0.70 Estimated GFR 83 L Random Glucose 90 Calcium 6.4 L* D Prot Corrected Calcium 7.2 L* Magnesium Total Bilirubin AST ALT Alkaline Phosphatase Total Protein 5.4 L D Albumin Lipase Blood Type Antibody Screen MTS Gel Crossmatch Bld Prod Order Comment - Imaging Impressions Abdomen/Pelvis CT 12/21/17 17:55 CONCLUSION: 1. Nonconsolidative interstitial infiltrate in the left lower lung on the superiormost images of the scan. 2. Solitary 2 mm calcification upper pole extrarenal pelvis on the left side without evidence of hydronephrosis. This calcification could represent a nonobstructing stone or vascular calcification. Head CT 12/21/17 17:57 CONCLUSION: 1. Negative noncontrast CT brain. Assessment and Plan - Plan 67-year-old female with a past medical history significant for hypertension, hyperlipidemia, aortic stenosis, COPD, anemia, colitis and a history of breast cancer presents to the emergency department for the evaluation of black, tarry stools 4 days. GI bleed/presyncope/symptomatic anemia -H&H 7.2/21.5 -Hemoccult positive in the ED with history of black, tarry stools -Transfused 2 units packed red blood cells -Protonix drip -GI consulted, appreciate recommendations. Plan for EGD today -Recently started on ASA by PCP, about 1 month ago. -Follow H&H Hypertension/hyperlipidemia/COPD, not on exacerbation -Continue home medications DVT prop SCDs Code Status: Full Code Discussed Condition With: Patient, nursing Discharge Planning: Plan to DC home when clinically improved
[2017-12-22] MEDS ORDERED: Lidocaine PF 1% Inj 5 ML Syringe INFILTRATN ONE (12:00)
--- NOTE | 2017-12-22 15:21 | P.PCN ---
Date of procedure: 12/22/17 Pre-op diagnosis: Anemia, melena Post-op diagnosis: other Procedure: PROCEDURE PERFORMED EGD with biopsy INDICATION FOR PROCEDURE Melena, anemia PROCEDURE: The procedure, risks and benefits were discussed with Patient/POA and informed consent was obtained. Anesthesia sedated Patient with Diprivan. Patient was placed in the left lateral decubitus position. EGD: The Pentax videoscope was introduced through the oropharynx and advanced to the second portion of the duodenum under direct visualization. Retroflexion was performed in the stomach. FINDINGS: The esophagus this appeared to be unremarkable except for an irregular Z line this was biopsied The stomach there was patchy erythema in the stomach antrum and body biopsies were taken from the antrum otherwise unremarkable with no ulcers erosions or any blood or bleeding The duodenum this was normal ESTIMATED BLOOD LOSS: None SPECIMENS REMOVED: Esophageal and gastric biopsies COMPLICATIONS: None IMPRESSION: Irregular Z line Gastritis PLAN: Await biopsies Continue PPI Advance diet as tolerated If all is stable tomorrow patient may be discharged from a GI standpoint Follow-up with GI post discharge Consider capsule endoscopy Anesthesia: MAC Surgeon: Scar Gutierrez Pathology: other Condition: stable Disposition: floor
[2017-12-22] MEDS: Montelukast 10 MG Tablet PO SCH (21:00)
[2017-12-23 05:22] LABS: Baso % (Auto) 0.6 % (0.0-2.0); Eos # (Auto) 0.2 th/mm3 (0.0-0.4); Eos % (Auto) 3.9 % (0.0-4.0); Hemoglobin 8.7 gm/dL (11.6-15.3); Lymph # (Auto) 1.3 th/mm3 (1.0-4.8); Lymph % (Auto) 23.5 % (9.0-44.0); Mean Corpuscular HGB Conc 33.5 % (32.0-36.0); Mean Corpuscular Hemoglobin 28.5 pg (27.0-34.0); Mean Corpuscular Volume 84.9 fL (80.0-100.0); Mean Platelet Volume 7.6 fL (7.0-11.0); Mono # (Auto) 0.7 th/mm3 (0.0-0.9); Mono % (Auto) 12.3 % (0.0-8.0); Neut # (Auto) 3.4 th/mm3 (1.8-7.7); Neut % (Auto) 59.7 % (16.0-70.0); Platelet Count 213 th/mm3 (150-450); Red Blood Count 3.06 mil/mm3 (4.00-5.30); Red Cell Distribution Width 19.5 % (11.6-17.2); White Blood Count 5.6 th/mm3 (4.0-11.0)
[2017-12-23 05:24] LABS: Carbon Dioxide 30.5 meq/L (21.0-32.0); Potassium 4.4 meq/L (3.5-5.1)
[2017-12-23] MEDS: Pantoprazole Inj 80 MG in Sodium Chlor 0.9% Inj 100 ML IV.CONT SCH (06:10)
[2017-12-23] MEDS: Primidone 50 MG Tablet PO SCH (08:37)
[2017-12-23] MEDS: lamoTRIgine 100 MG Tablet PO SCH (08:38)
[2017-12-23] MEDS: Sertraline 100 MG Tablet PO SCH (08:38)
[2017-12-23] MEDS: Carvedilol 12.5 MG Tablet PO SCH (08:39)
[2017-12-23] MEDS: amLODIPine 10 MG Tablet PO SCH (08:39)
[2017-12-23] MEDS: Lisinopril 20 MG Tablet PO SCH (08:39)
--- NOTE | 2017-12-23 09:36 | P.PNIM ---
Subjective Interval history: Patient states no further abdominal bleeding. No abdominal pain. No active chest pain or shortness of breath. Feels better. Wants to go home. Physical Exam Vital signs: Vital Signs 12/22/17 12:00 12/22/17 15:20 12/22/17 15:43 Temperature 98.5 F 97.9 F Pulse Rate 67 63 Respiratory Rate 18 18 Blood Pressure 133/60 143/65 H Pulse Oximetry 100 100 100 12/22/17 16:00 12/22/17 18:20 12/22/17 18:27 Temperature 98.8 F Pulse Rate 64 65 67 Respiratory Rate 18 Blood Pressure 157/70 H 181/77 H 184/82 H Pulse Oximetry 100 12/22/17 18:28 12/22/17 20:00 12/23/17 00:00 Temperature 98.0 F 98.1 F Pulse Rate 64 66 61 Respiratory Rate 20 20 Blood Pressure 167/72 H 163/71 H 123/60 Pulse Oximetry 100 99 12/23/17 04:00 Temperature 98.1 F Pulse Rate 64 Respiratory Rate 18 Blood Pressure 132/61 Pulse Oximetry 99 Intake & Output 12/22/17 12/23/17 12/23/17 18:59 06:59 18:59 Intake Total 200 / 200 100 / 100 Balance 200 / 200 100 / 100 Weight 90.1 kg Intake: IV 100 / 100 100 / 100 Protonix Inj 80 MG In NS Inj 100 / 100 100 / 100 100 ML @ 10 mls/hr IV.CONT CONT LORELEI Rx#:[id number] Anesthesia Amount 100 / 100 Other: # Voids 1 Date of Last Bowel Movement 12/20/17 12/20/17 Narrative: GENERAL: This is a well-nourished, well-developed patient, in no apparent distress. SKIN: Warm and dry. HEENT: Normocephalic. Pupils equal round and reactive. Nose without bleeding. Airway patent. NECK: Trachea midline. CARDIOVASCULAR: Regular rate and rhythm with murmurs. No gallops, or rubs. RESPIRATORY: Clear to auscultation. Breath sounds equal bilaterally. No wheezes , rales, or rhonchi. GASTROINTESTINAL: Abdomen soft, nondistended. Bowel Sounds hypoactive. Tender to palpate midepigastric, RLQ MUSCULOSKELETAL: Extremities without clubbing, cyanosis, or edema. NEUROLOGICAL: Awake and alert. Oriented to time, place, person. No focal neuro deficit. Moves all extremities. Normal speech. Results - Labs CBC & Chem 7: 12/23/17 04:40 12/23/17 04:40 Laboratory Results - last 24 hr 12/23/17 12/23/17 04:40 04:40 WBC 5.6 RBC 3.06 L Hgb 8.7 L Hct 26.0 L MCV 84.9 MCH 28.5 MCHC 33.5 RDW 19.5 H Plt Count 213 MPV 7.6 Neut % (Auto) 59.7 Lymph % (Auto) 23.5 [place] % (Auto) 12.3 H Eos % (Auto) 3.9 Baso % (Auto) 0.6 Neut # (Auto) 3.4 Lymph # (Auto) 1.3 [place] # (Auto) 0.7 Eos # (Auto) 0.2 Baso # (Auto) 0.0 WBC Differential . Differential Comment Auto diff final Sodium 139 Potassium 4.4 Chloride 102 D Carbon Dioxide 30.5 Anion Gap 7 BUN 14 Creatinine 1.01 H Estimated GFR 55 L Random Glucose 92 Calcium 8.0 L D Assessment and Plan - Assessment (1) Gastritis Code(s): K29.70 - Gastritis, unspecified, without bleeding Status: Acute (2) Acute GI bleeding Code(s): K92.2 - Gastrointestinal hemorrhage, unspecified Status: Acute (3) Symptomatic anemia Code(s): D64.9 - Anemia, unspecified Status: Resolved - Plan 67-year-old female with a past medical history significant for hypertension, hyperlipidemia, aortic stenosis, COPD, anemia, colitis and a history of breast cancer presents to the emergency department for the evaluation of black, tarry stools 4 days. GI bleed/presyncope/symptomatic anemia -H&H 7.2/21.5 and now after transfusion is 8.7 -Transfused 2 units packed red blood cells -Patient was originally placed on Protonix drip and now back to p.o. Protonix twice daily -GI consulted, appreciate recommendations. Status post EGD on 12/22 which showed gastritis. -Recently started on ASA by PCP, about 1 month ago which will be discontinued at this time. Hypertension/hyperlipidemia/COPD, not in exacerbation -Continue home medications DVT prop SCDs, anticoagulation is contraindicated secondary GI bleed. Discharge patient to home Condition on discharge: Improved Heart healthy diet as tolerated Ad Kristine activity No new Rx written: Stop aspirin Continue with Protonix 40 mg p.o. twice daily Follow-up with primary care physician
[2017-12-23] MEDS ORDERED: Heparin Central Flush 100 UNIT/ML 5 ML Vial IV.FLUSH PRN ×4 (11:39→12:11)
--- NOTE | 2017-12-23 19:46 | ECG ---
Date Performed: 12/22/2017 Time Performed: 14:28:49 PTAGE: 67 years EKG: Sinus rhythm NORMAL ECG PREVIOUS TRACING : 01/08/2017 10.37 Artifact in V6 but otherwise no change to the prior tracing DOCTOR: Lyndon Cruz Interpretating Date/Time 12/23/2017 19:45:35
== END 2017-12-23 12:55 | disposition home or self-care (01) ==
LOC: NEPC 16:36 → NEDA 20:18 → NEPGCP 22:10 → N04 12-22 18:49
PROVIDERS: ADMIT Family Medicine; ATTEND Family Medicine

== ENCOUNTER 2018-05-04 08:26 | Inpatient (IN) ==
--- NOTE | 2018-05-04 07:53 | P.HPCA ---
History of Present Illness Service: Cardiology Primary Care Physician: UNKNOWN Chief Complaint: Severe aortic valve stenosis History of Present Illness: This is a 68-year-old female who presented with symptoms of worsening dyspnea. Patient has history of diastolic congestive heart failure, hypertension, hyperlipidemia, oxygen dependent severe chronic obstructive pulmonary disease, and coronary artery disease. Patient was evaluated by Dr. Banuelos in the outpatient setting and transthoracic echocardiogram revealed severe aortic valve stenosis. Patient underwent cardiac catheterization without significant obstructive coronary disease. Patient was intermediate surgical risk but due to severe obstructive pulmonary disease felt not to be a good surgical candidate. Patient was evaluated by 2 cardiothoracic surgeons and felt to be a better candidate for transcatheter aortic valve replacement. Patient is now here today for scheduled procedure. - Diagnosis (1) Severe aortic valve stenosis (2) Diastolic congestive heart failure Inpatient Certification: I certify that the inpatient services were ordered in accordance with Medicare regulations governing the order. This includes certification that hospital inpatient services are reasonable and necessary and in the case of services not specified as inpatient-only under 42 CFR 419.22(n), that they are appropriately provided as inpatient services in accordance to with the 2-midnight benchmark under 43 CFR 412.3(e) Review of Systems All other systems reviewed negative except as stated in HPI PMFSH - History History Provided By: Patient - Medical History Medical History: Medical History (Last Updated 03/15/18 @ 08:58 by Heidi Gordon RN) Anemia Aortic stenosis Bipolar disorder Breast cancer CAD (coronary artery disease) CHF (congestive heart failure) COPD (chronic obstructive pulmonary disease) Colitis Depression Diverticulitis Fibroid tumor GI bleed Hypercholesteremia Hypertension Oxygen dependent Port-A-Cath in place - Surgical History Surgical History: Surgical History (Last Reviewed 12/21/17 @ 20:11 by ANTONIO Breaux) History of hip replacement, total History of laminectomy History of lumpectomy of right breast History of tubal ligation Hx of cholecystectomy - Tobacco History Second Hand Smoke Exposure: No Smoking Status: Former smoker Tobacco Type: Cigarettes - Alcohol History How Often Do You Have a Drink Containing Alcohol: 2 to 3 times a week - Substance Use History Substance History: No History of Abuse Medications and Allergies Allergies Allergy/AdvReac Type Severity Reaction Status Date / Time diatrizoate meglumine Allergy Severe Anaphylaxis Verified 04/19/18 08:35 gadobenic acid Allergy Severe Anaphylaxis Verified 04/19/18 08:35 gadodiamide Allergy Severe Anaphylaxis Verified 04/19/18 08:35 gadoteridol Allergy Severe Anaphylaxis Verified 04/19/18 08:35 iodixanol Allergy Severe Anaphylaxis Verified 04/19/18 08:35 iohexol Allergy Severe Anaphylaxis Verified 04/19/18 08:35 Home Medications Medication Instructions Recorded Confirmed Type amlodipine [Norvasc] 10 mg PO DAILY 12/21/17 04/19/18 History carvedilol [Coreg] 25 mg PO BID 12/21/17 04/19/18 History cetirizine [Zyrtec] 10 mg PO DAILY 12/21/17 04/19/18 History guaifenesin [Mucinex] 600 mg PO Q12H 12/21/17 04/19/18 History lamotrigine [Lamictal] 150 mg PO BID 12/21/17 04/19/18 History lisinopril 20 mg PO DAILY 12/21/17 04/19/18 History melatonin 10 mg PO HS PRN 12/21/17 04/19/18 History montelukast [Singulair] 10 mg PO QPM 12/21/17 04/19/18 History pantoprazole [Protonix] 40 mg PO DAILY 12/21/17 04/19/18 History primidone 100 mg PO BID 12/21/17 04/19/18 History quetiapine [Seroquel] 400 mg PO DAILY 12/21/17 04/19/18 History albuterol sulfate [Ventolin HFA] 2 puff INHALATION Q6H PRN 03/15/18 04/19/18 History atorvastatin 40 mg PO DAILY 03/15/18 04/19/18 History clonidine HCl 0.1 mg PO DAILY PRN 03/15/18 04/19/18 History magnesium 250 mg PO DAILY 03/15/18 04/19/18 History multivitamin 1 tab PO DAILY 03/15/18 04/19/18 History polyethylene glycol 3350 [Miralax] 17 g PO DAILY PRN 03/15/18 04/19/18 History umeclidinium-vilanterol [Anoro 1 inh INHALATION Q24H 03/15/18 04/19/18 History Ellipta] oxcarbazepine [Trileptal] 150 mg PO DAILY 04/19/18 04/19/18 History Exam - Constitutional no acute distress - Routine HEENT Exam Head: Present: normocephalic Eye: Present: EOMI, PERRL ENT: Present: mucous membranes moist - Routine Neck Exam Absent: JVD - Routine Respiratory Exam Present: CTA bilaterally - Routine Cardiovascular Exam Present: RRR, murmur - Routine Abdominal Exam Present: soft, normoactive bowel sounds - Routine Extremities Exam Absent: edema - Routine Neurological Exam Present: oriented X3, CN II-XII intact. Absent: sensory deficit, motor deficit EKG interpretations - Dysrhythmias Sinus rhythms and dysrhythmias: sinus rhythm - Blocks, axis, hypertrophy, ST abn Repolarization changes or abnormalities: early repolarization due to LVH Caprini VTE Risk Assessment Caprini VTE Risk Assessment: Moderate/High Risk (score >= 2) Caprini Risk Assessment Model: Point Value = 1 Point Value = 2 Point Value = 3 Point Value = 5 Age 41-60 Minor surgery BMI > 25 kg/m2 Swollen legs Varicose veins or History of unexplained or recurrent spontaneous Oral contraceptives or hormone replacement Sepsis (< 1 month) Serious lung disease, including pneumonia (< 1 month) Abnormal pulmonary function Acute myocardial infarction Congestive heart failure (< 1 month) History of inflammatory bowel disease Medical patient at bed rest Age 61-74 Arthroscopic surgery Major open surgery (> 45 min) Laparoscopic surgery (> 45 min) Malignancy Confined to bed (> 72 hours) Immobilizing plaster cast Central venous access Age >= 75 History of VTE Family history of VTE Factor V Leiden Prothrombin [id number] Lupus anticoagulant Anticardiolipin antibodies Elevated serum homocysteine Heparin-induced thrombocytopenia Other congenital or acquired thrombophilia Stroke (< 1 month) Elective arthroplasty Hip, pelvis, or leg fracture Acute spinal cord injury (< 1 month) Prophylaxis Regimen: Total Risk Factor Score Risk Level Prophylaxis Regimen 0-1 Low Early ambulation 2 Moderate Order ONE of the following: *Sequential Compression Device (SCD) *Heparin 5000 units SQ BID 3-4 Higher Order ONE of the following medications: *Heparin 5000 units SQ TID *Enoxaparin/Lovenox 40 mg SQ daily (WT < 150 kg, CrCl > 30 mL/min) *Enoxaparin/Lovenox 30 mg SQ daily (WT < 150 kg, CrCl > 10-29 mL/min) *Enoxaparin/Lovenox 30 mg SQ BID (WT < 150 kg, CrCl > 30 mL/min) AND/OR *Sequential Compression Device (SCD) 5 or more Highest Order ONE of the following medications: *Heparin 5000 units SQ TID (Preferred with Epidurals) *Enoxaparin/Lovenox 40 mg SQ daily (WT < 150 kg, CrCl > 30 mL/min) *Enoxaparin/Lovenox 30 mg SQ daily (WT < 150 kg, CrCl > 10-29 mL/min) *Enoxaparin/Lovenox 30 mg SQ BID (WT < 150 kg, CrCl > 30 mL/min) AND *Sequential Compression Device (SCD) Assessment and Plan - Assessment (1) Severe aortic valve stenosis Code(s): I35.0 - Nonrheumatic aortic (valve) stenosis Status: Acute Plan: This is a 68-year-old female with multiple comorbidities which includes oxygen dependent severe COPD felt to be intermediate surgical risk with an STS score of 3%. Patient was evaluated by 2 cardiothoracic surgeons and felt to be a better candidate due to poor lung function for consideration of transcatheter valve replacement. Preoperative workup: STS score 3% [place] [employer] functional class III symptoms BMI 33.1 2/4 frailty score Electrocardiogram March 15, 2018 shows sinus bradycardia with left ventricular hypertrophy Pulmonary function test from March 08, 2018 shows an FEV1 of 0.98 consistent with severe lung disease Echocardiogram from October 28, 2017 shows peak jet velocity 4.0 m/s, mean gradient 44 mmHg, calculated valve area 1.04 cm, ejection fraction 60-65%, and mild mitral regurgitation. Cardiac catheterization from March 15, 2018 shows mild nonobstructive coronary disease Computed tomography analysis from March 15, 2018 shows short annulus diameter 18.4 mm, long and this time a 24.6 mm, annual area of 370.5 mm, sinus of Valsalva diameter 29.1 mm, sinotubular junction 24.8 mm, left coronary height 17.5 mm, right coronary had 16.7 mm with an implant angle left anterior oblique 24 degrees and caudal 30 degrees and root angle 42 degrees, minimal luminal diameter on the right is 5.5 mm and on the left is 5.3 mm Risks, benefits, and alternatives were discussed with the patient. Patient agreed and consented to proceed. We will plan for transcatheter aortic valve replacement using an Celeste Jeri S3 23 mm valve from a right common femoral arterial approach. Given the small luminal diameter bilateral iliacs, consideration for alternative approach with left subclavian access may need to be a consideration if we have difficulty transitioning the iliac arteries. (2) Diastolic congestive heart failure Code(s): I50.30 - Unspecified diastolic (congestive) heart failure Status: Acute
[~2018-05-04 08:26] MED LIST changes: -AMLO5TAB2 PO; -CARV25TA PO; -CLON0.1T PO; -DULO1CAP2 PO; -DULO1CAP3 PO; -FERR324T8 PO; +Iohexol 350 MG/ML 100 ML Vial (for Cath Lab) IVCONTRAST ONE; +Iohexol 350 MG/ML 50 ML Vial (for Cath Lab) IVCONTRAST ONE; -LAMO100T PO; -LISI-515 PO; -MONT10TA4 PO; -PANT40TA3 PO; -PRIM50TA5 PO; -QUET400T PO; -SIMV40TA PO; -UMEC1AER INH
[2018-05-04] MEDS ORDERED: Aspirin 325 MG Tablet PO SCH (11:15)
[2018-05-04] MEDS ORDERED: Mupirocin 2% Nasal Oint Topical Syringe EACH NARE SCH (11:15)
[2018-05-04 11:22] LABS: Baso % (Auto) 0.3 % (0.0-2.0); Eos # (Auto) 0.2 th/mm3 (0.0-0.4); Eos % (Auto) 2.2 % (0.0-4.0); Hematocrit 32.5 % (35.0-46.0); Hemoglobin 11.5 gm/dL (11.6-15.3); Lymph % (Auto) 15.1 % (9.0-44.0); Mean Corpuscular HGB Conc 35.5 % (32.0-36.0); Mean Corpuscular Hemoglobin 31.2 pg (27.0-34.0); Mean Corpuscular Volume 87.9 fL (80.0-100.0); Mean Platelet Volume 7.1 fL (7.0-11.0); Mono # (Auto) 0.5 th/mm3 (0.0-0.9); Mono % (Auto) 6.7 % (0.0-8.0); Neut # (Auto) 5.3 th/mm3 (1.8-7.7); Neut % (Auto) 75.7 % (16.0-70.0); Platelet Count 204 th/mm3 (150-450); Red Blood Count 3.69 mil/mm3 (4.00-5.30); Red Cell Distribution Width 15.2 % (11.6-17.2)
[2018-05-04 11:30] LABS: Calcium 9.3 mg/dL (8.5-10.1); Carbon Dioxide 30.7 meq/L (21.0-32.0); Potassium 4.4 meq/L (3.5-5.1)
[2018-05-04] MEDS ORDERED: MethylPREDNISolone Sod Succinate Inj 125 MG/2 ML Vial IV.PUSH SCH (11:30)
[2018-05-04 11:33] LABS: Activated Partial Thrombo Time 25.5 sec (23.4-31.7); Prothrombin Time 9.9 sec (9.8-11.6)
[2018-05-04] MEDS: Sod Chloride 0.9% Inj 1,000 ML IV.CONT SCH (11:34)
[2018-05-04] MEDS ORDERED: ceFAZolin 2 GM Premix Inj 2 GM/50 ML PIGGYBACK IV.SIG SCH (12:00)
[2018-05-04] MEDS ORDERED: Famotidine PF Inj 20 MG/2 ML Vial IV.PUSH SCH (12:00)
[2018-05-04] MEDS ORDERED: Heparin 10,000 UNITS/10 ML Vial (for IV use) ONE ×2 (13:23→16:53)
[2018-05-04] MEDS ORDERED: Protamine Sulfate Inj 50 MG/5 ML Vial ONE ×3 (13:23→16:54)
[2018-05-04] MEDS ORDERED: Clevidipine Inj 25 MG/50 ML VIAL ONE (15:37)
--- NOTE | 2018-05-04 15:54 | P.OP ---
- Preoperative Diagnosis (1) Severe aortic valve stenosis (2) Diastolic congestive heart failure Postoperative Diagnosis: same Date of procedure: 05/04/18 Procedure: Transcatheter aortic valve replacement with a 23 Jeri 3 tissue valve Percutaneous bilateral femoral artery access with Perclose closure on the left Percutaneous left femoral venous access Aortography Fluoroscopy Implants: 23 Jeri 3 tissue valve Anesthesia: GETA Surgeon: Jennifer Abbott MD Co-surgeon - Minor Pathology: none sent Operation and Findings: The risks, benefits, complications, treatment options, and expected outcomes were discussed with the patient. The possibilities of reaction to medication, pulmonary aspiration, perforation of viscus, bleeding, recurrent infection, the need for additional procedures, failure to diagnose a condition, and creating a complication requiring transfusion or operation were discussed with the patient. The patient concurred with the proposed plan, giving informed consent. The site of surgery properly noted/marked. The patient was taken to hybrid operating room, identified as Raisa Retana and the procedure verified as Transcatheter Aortic Valve Replacement. A Time Out was held and the above information confirmed. Standard monitoring lines and Pepe catheter were placed. General anesthesia was induced. The patient was prepped and draped in a sterile fashion. Initially, right femoral arterial and venous access was acquired using a Seldinger percutaneous technique. The details of this procedure were dictated under separate note by cardiology. Once a pigtail was positioned in the aortic annulus and a temporary transvenous pacemaker wire was placed in the right ventricular apex and tested, the left femoral artery was accessed using a needle followed by a guidewire under fluoroscopic guidance. The patient was heparinized and 2 Perclose devices deployed for later closure. Serial dilators were used to dilate the right femoral artery to 14 Indian caliber. The Celeste sheath was then inserted up to the distal abdominal aorta. Arch aortography was performed to define the implant view. A 23 Celeste Jeri 3 transcatheter aortic valve was then positioned in the annulus and deployed with the patient being paced at 180 beats per minute. Following deployment, the valve apparatus was withdrawn and arch aortography and MCKENZIE were performed to assess the valve. The valve had no significant perivalvular leaks. Gradients were then measured and the sheath was removed. Peerclose sutures were secured with good hemostasis. Protamine was administered. Sterile dressings were placed. At the end of the operation, all sponge, instruments, and needle counts were correct. The patient was transferred to the CVICU in stable condition. Findings: No PVL noted following deployment with single digit gradients Complications: none
[2018-05-04] MEDS ORDERED: Morphine Sulfate Inj 2 MG/ML Vial ONE (16:17)
[2018-05-04] MEDS ORDERED: Atropine Inj 1 MG/10 ML Syringe ONE (16:29)
[2018-05-04] MEDS ORDERED: fentaNYL Citrate Inj 100 MCG/2 ML Ampul ONE ×2 (16:31→18:39)
[2018-05-04] MEDS ORDERED: Heparin/NS PF Inj 500 ML ONE (16:53)
[2018-05-04] MEDS ORDERED: Thrombin Topical 20,000 UNIT Spray Kit TOPICAL ONE (16:53)
--- NOTE | 2018-05-04 16:53 | ECG ---
Date Performed: 05/04/2018 Time Performed: 11:44:26 PTAGE: 68 years EKG: Sinus rhythm Since previous tracing, no significant change noted Normal ECG PREVIOUS TRACING : 03/15/2018 08.44.32 DOCTOR: Michelet Aragon Interpretating Date/Time 05/04/2018 16:51:56
[2018-05-04] MEDS ORDERED: Bupivacaine PF 0.5% Inj 10 ML Vial ONE (16:54)
[2018-05-04] MEDS ORDERED: Acetaminophen 325 MG Tablet PO PRN (16:57)
[2018-05-04] MEDS ORDERED: Sod Chloride 0.9% Inj 1,000 ML IV.CONT SCH (17:00)
--- NOTE | 2018-05-04 17:01 | P.OP ---
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 Fluoroscopy with interpretation 2. Left heart catheterization 3. Ascending aortography 4. Temporary transvenous pacemaker placement 5. Transesophageal echocardiogram 6. Transcatheter aortic valve replacement with Celeste 23 mm Jeri S3 bioprosthetic valve Methods: Risks, benefits, and alternatives were discussed with the patient. Patient understood and consented to the procedure. Patient was brought into the operating room and placed on the operating table. Bilateral groins and chest were prepped and draped. Under fluoroscopic guidance the right common femoral artery was cannulated and a 5 German 11 cm sheath was placed without difficulty. Angiography confirmed appropriate placement. Right femoral vein was accessed and a 5 German 11 cm sheath was placed without difficulty. Left common femoral artery was cannulated under fluoroscopic and angiographic guidance through using a micropuncture sheath. Angiography confirmed appropriate placement. An 8 German sheath was placed without difficulty. 2 Perclose devices were deployed in a pre-close manner. The 14 German Celeste sheath was then advanced up over the wire through the iliac system without difficulty into the descending abdominal aorta. Temporary transvenous pacemaker placement: A 5 German balloontipped temporary transvenous pacemaker was advanced under fluoroscopic guidance to the right internal jugular sheath to the right ventricular apex. Appropriate pacing and capture was confirmed and utilized during the procedure for rapid ventricular pacing. Transesophageal echocardiogram: Please see detailed separate report Ascending aortography: Ascending aortography was performed using an 5 German angled pigtail catheter advanced to the left common femoral arterial sheath to the level of the descending aorta and its the right coronary cusp. Ascending aortography was performed which showed 3 leaflets and parallax view. The descending aorta was not significantly dilated. Left heart catheterization: A 5 German AL-1 catheter was advanced through the right common femoral sheath to the level of the descending aorta a 0.035 inch Amplatz straight tip Super Stiff wire was then advanced across the aortic valve with some difficulty. The AL-1 catheter was advanced into the left ventricle. A 260 cm 0.035 inch standard J-wire was then advanced to the left ventricular apex and the AL-1 catheter removed. A 5 German angled pigtail catheter was then advanced over the J-wire into the left ventricular apex and the J-wire removed. A 0.035 inch 260 cm Medtronic Confida wire was then advanced to the left ventricular apex through the pigtail catheter, and the pigtail catheter removed. Transcatheter aortic valve replacement: A 23 mm Celeste Jeri S3 was advanced through the right common femoral sheath to the level of the descending aorta. The balloon was pulled back into the stent valve. The device was then advanced up and over the arch to the level of the ascending aorta and across the aortic valve. The pusher component was pulled back. Appropriate positioning was confirmed with a sending aortography and fluoroscopy. Under rapid ventricular pacing, the transcatheter aortic valve was slowly deployed. Immediate post deployment transesophageal echocardiogram revealed appropriate positioning. There was no perivalvular leak or pericardial effusion. Patient tolerated the procedure with good hemodynamic stability. The delivery sheath was then removed. The left common femoral arterial sheath was removed and 2 Perclose devices deployed with good hemostasis. The right common femoral artery and venous sheaths were also removed and 2 Vascade closure devices were deployed individually with good hemostasis. Post valve deployment intraoperative transesophageal echocardiogram findings: 1. Post aortic valve area 1.6 cm 2. Post implant mean aortic valve gradient 4 mmHg 3. Post implant peak velocity 1.44 m/seconds 4. Aortic valve insufficiency -no regurgitation or perivalvular leak Conclusions: 1. Severe nightmute aortic valve stenosis 2. Successful transcatheter aortic valve replacement with a bioprosthetic 23 mm Celeste Jeri S3 valve Plan: We will monitor the patient closely for any immediate postprocedural complications. We will consult electrophysiology for evaluation of postprocedure heart rhythm. We will obtain a limited transthoracic echocardiogram. Patient be transferred to the cardiovascular intensive care unit for further monitoring
--- NOTE | 2018-05-04 17:03 | CT ---
EXAM DATE: 05/04/2018 4:50 PM EST AGE/SEX: 68 years / Female INDICATIONS: Abdominal pain post TAVR today. CLINICAL DATA: This is the patient's initial encounter. Patient reports that signs and symptoms have been present for 1 day and indicates a pain score of 10/10. MEDICAL/SURGICAL HISTORY: Cardiovascular disease. . TAVR. Bilateral hips replacement. RADIATION DOSE: 16.92 CTDI (mGy) COMPARISON: [facility] [place], CT CHEST TRANSAORTIC VALVE REP, 04/19/2018. . TECHNIQUE: Multiple contiguous axial images were obtained through the abdomen. Images were obtained using multiple row detector helical technique. Using automated exposure control and adjustment of the mA and/or kV according to patient size, radiation dose was kept as low as reasonably achievable to o btain optimal diagnostic quality images. DICOM format image data is available electronically for rev iew and comparison. FINDINGS: There is a large right retroperitoneal hematoma, primarily in the pelvis extending from the upper ing uinal region up to just below the lower pole of the right kidney. The collection appears to most clos maikel approximate the iliac vascular structures in the region of the right iliac bifurcation. The hemat arslan measures roughly 16 x 11 cm (long axis by short axis). Elsewhere, the noncontrast appearance of the liver, spleen, pancreas, adrenals is benign. There is co ntrast excretion by the kidneys from recent arteriography and aortic valve repair. The bowel structures are nondilated. There is no evidence of lymphadenopathy. Reproductive structures are unremarkable. Bony elements are stable and grossly intact with note of bilateral total hip arthroplasties. Pepe ca theter present in the decompressed urinary bladder. CONCLUSION: Large right retroperitoneal hematoma. Findings were reviewed with Dr. Montanez and Dr. Harden. Electronically signed by: Jamari Chappell MD 05/04/2018 5:01 PM EST
[2018-05-04] MEDS ORDERED: MethylPREDNISolone Sod Succinate Inj 125 MG/2 ML Vial ONE (17:12)
[2018-05-04] MEDS ORDERED: Iohexol 300 MG/ML 50 ML Vial (for Rad Diag) IVCONTRAST ONE ×2 (18:02→18:30)
--- NOTE | 2018-05-04 18:41 | P.CONVS ---
History of Present Illness Service: vascular surgery Consult date: 05/04/18 Requesting Physician: Alvaro Howard Reason for Consult: RP hematoma Primary Care Provider: Casey Corbett Chief Complaint: Severe aortic valve stenosis History of Present Illness: 68 yo female s/p TAVR who complained of acute R flank pain. Transient hypotension. Called by Dr. Howard on way to CT scanner which showed RP hematoma and likely iliac extravasation. Pt stable, mentating and borderline hypotension. Seen at approximately [address] scan. Review of Systems unobtainable due to mental condition PMFSH - History History Provided By: Patient - Medical History Medical History: Medical History (Last Reviewed 05/04/18 @ 18:39 by Austin Harden MD) Anemia Aortic stenosis Bipolar disorder Breast cancer CAD (coronary artery disease) CHF (congestive heart failure) COPD (chronic obstructive pulmonary disease) Colitis Depression Diverticulitis Fibroid tumor GI bleed Hypercholesteremia Hypertension Oxygen dependent Port-A-Cath in place - Surgical History Surgical History: Surgical History (Last Reviewed 05/04/18 @ 18:39 by Austin Harden MD) History of hip replacement, total History of laminectomy History of lumpectomy of right breast History of tubal ligation Hx of cholecystectomy - Tobacco History Second Hand Smoke Exposure: No Smoking Status: Former smoker Tobacco Type: Cigarettes - Alcohol History How Often Do You Have a Drink Containing Alcohol: 2 to 3 times a week - Substance Use History Substance History: No History of Abuse Medications and Allergies Active Medications: Active Medications Acetaminophen (Tylenol) 650 mg PO Q4H PRN PRN Reason: PAIN SCALE 1 TO 2 Stop: 05/05/18 16:56 Aspirin (Aspirin) 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 mg 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[employer]OR [facility] Stop: 05/04/18 23:00 Last Admin: 05/04/18 11:34 Dose: 325 mg Aspirin (Aspirin Chew) 81 mg PO DAILY [facility] Clonidine HCl (Catapres) 0.2 mg PO Q6H PRN PRN Reason: SBP > 160 mmHg Clopidogrel Bisulfate (Plavix) 75 mg PO DAILY [facility] Diphenhydramine HCl (Benadryl Inj) 50 mg IV.PUSH 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[employer] [facility] Stop: 05/04/18 23:00 Last Admin: 05/04/18 12:33 Dose: 50 mg Famotidine (Pepcid Pf Inj) 20 mg IV.PUSH 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[employer] [facility] Stop: 05/04/18 23:00 Last Admin: 05/04/18 12:32 Dose: 20 mg Ferrous Sulfate (Ferosul) 325 mg PO DAILY [facility] Hydralazine HCl (Apresoline Inj) 10 mg IV.PUSH Q30M PRN PRN Reason: SBP > 160 mmHg Cefazolin Sodium/Dextrose (Ancef 2 Gm Premix Inj) 2 gm in 50 mls @ 100 mls/hr IV.SIG [employer]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[employer]OR [facility] Stop: 05/04/18 23:00 Last Infusion: 05/04/18 15:00 Dose: Infused Sodium Chloride (Ns Inj) 1,000 mls @ 125 mls/hr IV.CONT .Q8H [facility] Last Admin: 05/04/18 11:34 Dose: 125 mls/hr Sodium Chloride (Ns Inj) 1,000 mls @ 125 mls/hr IV.CONT .Q8H [facility] Stop: 05/04/18 20:59 Methylprednisolone Sodium Succinate (Solumedrol Inj) 125 mg IV.PUSH [employer]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[employer] [facility] Stop: 05/04/18 23:00 Last Admin: 05/04/18 12:32 Dose: 125 mg Mupirocin (Bactroban 2% Nasal Oint) 1 applicatio EACH NARE 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[employer] [facility] Stop: 05/07/18 11:15 Ondansetron HCl (Zofran Inj) 4 mg IV.PUSH ONCE PRN PRN Reason: NAUSEA OR VOMITING Oxycodone/Acetaminophen (Percocet 5/325 Mg) 1 tab PO Q6H PRN PRN Reason: PAIN SCALE 3 TO 5 Allergies Allergy/AdvReac Type Severity Reaction Status Date / Time diatrizoate meglumine Allergy Severe Anaphylaxis Verified 04/19/18 08:35 gadobenic acid Allergy Severe Anaphylaxis Verified 04/19/18 08:35 gadodiamide Allergy Severe Anaphylaxis Verified 04/19/18 08:35 gadoteridol Allergy Severe Anaphylaxis Verified 04/19/18 08:35 iodixanol Allergy Severe Anaphylaxis Verified 04/19/18 08:35 iohexol Allergy Severe Anaphylaxis Verified 04/19/18 08:35 Home Medications Medication Instructions Recorded Confirmed Type amlodipine [Norvasc] 10 mg PO DAILY 12/21/17 05/04/18 History carvedilol [Coreg] 25 mg PO BID 12/21/17 05/04/18 History cetirizine [Zyrtec] 10 mg PO DAILY 12/21/17 05/04/18 History guaifenesin [Mucinex] 600 mg PO Q12H 12/21/17 05/04/18 History lamotrigine [Lamictal] 150 mg PO BID 12/21/17 05/04/18 History lisinopril 20 mg PO DAILY 12/21/17 05/04/18 History melatonin 10 mg PO HS PRN 12/21/17 05/04/18 History montelukast [Singulair] 10 mg PO QPM 12/21/17 05/04/18 History pantoprazole [Protonix] 40 mg PO DAILY 12/21/17 05/04/18 History primidone 100 mg PO BID 12/21/17 05/04/18 History quetiapine [Seroquel] 400 mg PO DAILY 12/21/17 05/04/18 History albuterol sulfate [Ventolin HFA] 2 puff INHALATION Q6H PRN 03/15/18 05/04/18 History atorvastatin 40 mg PO DAILY 03/15/18 05/04/18 History clonidine HCl 0.1 mg PO DAILY PRN 03/15/18 05/04/18 History magnesium 250 mg PO DAILY 03/15/18 05/04/18 History multivitamin 1 tab PO DAILY 03/15/18 05/04/18 History polyethylene glycol 3350 [Miralax] 17 g PO DAILY PRN 03/15/18 05/04/18 History umeclidinium-vilanterol [Anoro 1 inh INHALATION Q24H 03/15/18 05/04/18 History Ellipta] oxcarbazepine [Trileptal] 150 mg PO DAILY 04/19/18 05/04/18 History Physical Exam Vital Signs / I&O: Vital Signs 05/04/18 12:33 Temperature 98.2 F Pulse Rate 63 Respiratory Rate 18 Blood Pressure 172/91 H Pulse Oximetry 99 Intake & Output 05/03/18 05/04/18 05/04/18 18:59 06:59 18:59 Intake Total 650 / 650 Output Total 200 / 200 Balance 450 / 450 Weight 87.5 kg Intake: IV 50 / 50 Ancef 2 GM Premix Inj 2 gm In 50 / 50 50 ml @ 100 mls/hr IV.SIG [employer]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[employer] [facility] Rx#:[id number] Anesthesia Amount 600 / 600 Output: Urine Amount (Catheter) 200 / 200 Indwelling Temp Sensing 200 / 200 Catheter Other: Weight On Admission 87.5 kg Neuro: in mild distress from pain; ARELLANO HEENT: NC/AT Neck: no JVD Heart: reg rate Lungs: clear, good sats RA Abdomen: R RP full but not tense, no peritonitis Extremities: ARELLANO Laboratory Results - last 24 hr 05/04/18 05/04/18 05/04/18 10:30 10:30 10:30 WBC 7.0 RBC 3.69 L Hgb 11.5 L Hct 32.5 L MCV 87.9 MCH 31.2 MCHC 35.5 RDW 15.2 Plt Count 204 MPV 7.1 Neut % (Auto) 75.7 H Lymph % (Auto) 15.1 [place] % (Auto) 6.7 Eos % (Auto) 2.2 Baso % (Auto) 0.3 Neut # (Auto) 5.3 Lymph # (Auto) 1.0 [place] # (Auto) 0.5 Eos # (Auto) 0.2 Baso # (Auto) 0.0 WBC Differential . Differential Comment Auto diff final PT 9.9 INR 1.0 APTT 25.5 Sodium 133 L Potassium 4.4 Chloride 95 L Carbon Dioxide 30.7 Anion Gap 7 BUN 13 Creatinine 0.77 Estimated GFR 74 L Random Glucose 101 Calcium 9.3 Blood Type Antibody Screen MTS Gel Crossmatch Bld Prod Order Comment 05/04/18 10:30 WBC RBC Hgb Hct MCV MCH MCHC RDW Plt Count MPV Neut % (Auto) Lymph % (Auto) [place] % (Auto) Eos % (Auto) Baso % (Auto) Neut # (Auto) Lymph # (Auto) [place] # (Auto) Eos # (Auto) Baso # (Auto) WBC Differential Differential Comment PT INR APTT Sodium Potassium Chloride Carbon Dioxide Anion Gap BUN Creatinine Estimated GFR Random Glucose Calcium Blood Type O Positive Antibody Screen Negative MTS Gel Crossmatch See Detail Bld Prod Order Comment Impressions Abdomen/Pelvis CT 05/04/18 16:21 CONCLUSION: Large right retroperitoneal hematoma. Findings were reviewed with Dr. Montanez and Dr. Harden. Assessment and Plan - Assessment (1) Retroperitoneal bleeding Code(s): R58 - Hemorrhage, not elsewhere classified Status: Acute - Plan To OR emergently for angiogram, possible iliac stenting, possible RP exploration and groin exploration. I discussed the procedure with the patient and her sister prior to going to the OR and all questions were answered.
--- NOTE | 2018-05-04 18:43 | P.OP ---
- Preoperative Diagnosis (1) Retroperitoneal bleeding - Postoperative Diagnosis (1) Retroperitoneal bleeding Date of procedure: 05/04/18 Procedure: 1. U/S guided access of R PHOTOVOLTAIC INSTALLATION TECHNICIAN 2. Aortogram and iliac angiogram 3. R RONNA/EIA IVUS 4. R RONNA-EIA stent (8x50 Viabahn) 5. R PHOTOVOLTAIC INSTALLATION TECHNICIAN Angioseal (8F) Implants: 1. Viabahn R iliac artery 2. Angioseal R PHOTOVOLTAIC INSTALLATION TECHNICIAN Anesthesia: GETA Surgeon: Austin Harden MD Family Services Manager: Anna Ny Estimated blood loss (mL): 10 IV fluids (mL): 500 Pathology: none sent Operation and Findings: resolution of subtle extravasation + Doppler signals in feet after Angioseal deployed
--- NOTE | 2018-05-04 19:24 | MP ---
cc: Austin Harden MD DATE OF OPERATION: 05/04/2018 PREOPERATIVE DIAGNOSIS: Retroperitoneal hematoma, iliac artery injury after TAVR. POSTOPERATIVE DIAGNOSIS: Retroperitoneal hematoma, iliac artery injury after TAVR. PROCEDURE PERFORMED: 1. Ultrasound-guided access to right common femoral artery. 2. Iliac angiogram. 3. Intravascular ultrasound of common iliac artery and external iliac artery. 4. Stent placement of iliac artery with an 8 x 50 Viabahn. 5. Right common femoral artery Angio-Seal (8-Latvian). ATTENDING SURGEON: Austin Harden MD ANESTHESIA: General. INDICATIONS FOR PROCEDURE: Ms. Retana is a 68-year-old lady who had a TAVR earlier today. She had acute flank pain, transient hypotension, and a CT scan showing retroperitoneal hematoma with iliac artery extravasation. She was taken to the operating room emergently for stent placement. DESCRIPTION OF PROCEDURE: Informed consent was obtained with the patient. She was taken to the operating room and placed supine on the operating table. An appropriate timeout was taken to ensure the patient's identity, the operative site and planned procedure. Two grams of Ancef were administered prior to skin incision, as well as steroids for her contrast allergy. Everyone in the room agreed with the timeout and we proceeded. She was prepped from his nipples to her knees. A 21-gauge micropuncture needle was used to access the right common femoral artery. This was done under ultrasonographic guidance. This was exchanged using Seldinger technique for micropuncture sheath, through which a 0.035 Glidewire was introduced. The microsheath was exchanged for a 5-Latvian sheath. An aortogram and iliac angiogram was obtained through the sheath and multiple obliquities and this showed an iliac artery extravasation at the iliac artery bifurcation. The 5-Latvian sheath was exchange for a 6-Latvian sheath over a Glidewire and the glide then was exchanged for a 0.018 three-way wire. An intravascular ultrasound catheter was placed over the wire through this sheath. An image of the common iliac artery and external iliac artery were obtained. This was done for sufficient diameter sizing. Based on the IVUS, the 8 mm Viabahn was then selected. The wire was then exchanged in the catheter for a 0.035 Storq wire and the 6-Latvian sheath was removed and 8-Latvian sheath was introduced. The 8 x 50 Viabahn was then inserted after an angiogram confirmed the location of the intended treatment zone and the 8 x 50 Viabahn was deployed and postdilated with an 8 mm balloon. The completion angiogram showed cessation of the extravasation. Wire, catheter and sheath were removed and the groin was closed with an Angio-Seal. There was a nice Doppler signal in the foot at the end of the case. There were no complications. I was present and scrubbed, and performed the entire procedure. INTERPRETATION OF IMAGES: The patient has a patent common femoral artery, external iliac artery and hypogastric artery. There is a subtle extravasation right at the bifurcation. The common femoral artery and its bifurcation are patent without any extravasation in this area. After covering this with a Viabahn, there is cessation of the extravasation. Austin Harden MD RJF/sv , 06:51 PM , 06:56 PM
[2018-05-04] MEDS: Morphine Sulfate Inj 2 MG/ML Vial IV.PUSH PRN ×2 (19:31→22:45)
[2018-05-04 20:22] LABS: Hematocrit 25.3 % (35.0-46.0); Hemoglobin 8.7 gm/dL (11.6-15.3); Mean Corpuscular HGB Conc 34.3 % (32.0-36.0); Mean Corpuscular Hemoglobin 29.5 pg (27.0-34.0); Mean Platelet Volume 7.2 fL (7.0-11.0); Platelet Count 195 th/mm3 (150-450); Red Blood Count 2.94 mil/mm3 (4.00-5.30); Red Cell Distribution Width 14.7 % (11.6-17.2); White Blood Count 8.8 th/mm3 (4.0-11.0)
[2018-05-04] MEDS ORDERED: Potassium Chlor 40 mEq Premix 40 MEQ/100 ML PIGGYBACK IV.SIG PRN ×2 (21:03)
[2018-05-04] MEDS ORDERED: Sodium Phosphate Inj 30 MMOL in Sodium Chlor 0.9% Inj 250 ML IV.SIG PRN (21:03)
[2018-05-04] MEDS ORDERED: Potassium Chlor 20 mEq Premix 20 MEQ/100 ML PIGGYBACK IV.SIG PRN ×2 (21:03)
[2018-05-04] MEDS ORDERED: Magnesium Sulfate Inj 2 GM in Sodium Chlor 0.9% Inj 96 ML IV.SIG PRN (21:03)
[2018-05-04] MEDS ORDERED: Potassium Phosphate Inj 30 MMOL in Sodium Chlor 0.9% Inj 250 ML IV.SIG PRN (21:03)
[2018-05-04] MEDS ORDERED: Potassium Phosphate 500 MG Soluble Tablet PO PRN ×2 (21:03)
[2018-05-04] MEDS ORDERED: Magnesium Sulfate Inj 4 GM in Sodium Chlor 0.9% Inj 92 ML IV.SIG PRN (21:03)
[2018-05-04] MEDS ORDERED: Magnesium Oxide 400 MG Tablet PO PRN (21:03)
[2018-05-04] MEDS ORDERED: Potassium Chloride 25 MEQ Effervescent Tablet PO PRN (21:03)
--- NOTE | 2018-05-04 21:10 | P.PCN ---
Date of procedure: 05/04/18 Procedure: Procedure: Transesophageal Echocardiography Diagnosis: Severe aortic stenosis Indications: Perioperative planning for transcatheter aortic valve replacement Consent: Obtained Anesthesia: General endotracheal anesthesia Description of the Procedure: The patient was sedated and mechanically ventilated. The echo probe was inserted easily and without resistance. At the conclusion of the procedure, the echo probe was removed. Please see detailed echocardiogram report for formal findings. Preliminary Findings (not confirmed): Pre-procedure: 1) LVEF 35% 2) severe aortic stenosis 3) mild aortic regurgitation 4) mild mitral regurgitation 5) no intra-atrial shunting by color flow Doppler 6) no pericardial effusion post-procedure: 1) s/p successful placement of transcatheter aortic valve 2) no evidence of bioprosthetic valve stenosis 3) no perivalvular leak 4) no pericardial effusion The patient tolerated the procedure well with no hemodynamic instability. There were no immediate complications noted. There was minimal EBL. I personally performed the procedure.
--- NOTE | 2018-05-04 21:22 | P.CONCC ---
History of Present Illness Service: Critical care medicine Consult date: 05/04/18 Requesting Physician: Jalen Shipman Reason for Consult: perioperative management of medical comorbidities Primary Care Provider: Casey Corbett Chief Complaint: Severe aortic valve stenosis History of Present Illness: This is a 68-year-old female with severe aortic stenosis and severe COPD with FEV1 50% of predicted who presents for transcatheter aortic valve replacement. She underwent her transcatheter aortic valve replacement under general anesthesia via common iliac access. The placement of the valve was uncomplicated and intraoperative echocardiogram demonstrated no perivalvular leak and good placement. Immediately postoperatively she was extubated and taken to CVICU where she was acutely hypotensive, unstable with new severe right flank pain. I was present at bedside when the patient arrived to the CVICU. Immediately went down for emergent noncontrasted CT abdomen pelvis which demonstrated large fluid collection in the right retroperitoneum. I spoke directly with Dr. Harden the on-call vascular surgeon and we brought the patient emergently to the operating room for endovascular femoral stenting. Due to with patient's arousal from anesthesia as well as the critical nature of the acute complaint, complete review of systems is unobtainable. Limited review of systems is positive for right flank pain, negative for headache, negative for chest pain, shortness of breath, nausea, vomiting, sore throat. Review of Systems unobtainable due to mental status PMFSH - History History Provided By: Patient, Family Member, Medical Record - Medical History Medical History: Medical History (Last Reviewed 05/04/18 @ 21:14 by Alvaro Howard MD) Anemia Aortic stenosis Bipolar disorder Breast cancer CAD (coronary artery disease) CHF (congestive heart failure) COPD (chronic obstructive pulmonary disease) Colitis Depression Diverticulitis Fibroid tumor GI bleed Hypercholesteremia Hypertension Oxygen dependent Port-A-Cath in place - Surgical History Surgical History: Surgical History (Last Reviewed 05/04/18 @ 21:14 by Alvaro Howard MD) History of hip replacement, total History of laminectomy History of lumpectomy of right breast History of tubal ligation Hx of cholecystectomy - Family History Family History: Family History (Last Updated 05/04/18 @ 21:14 by Alvaro Howard MD) Other Family history non-contributory - Social History I have reviewed the patient's Social History: Yes - Tobacco History Second Hand Smoke Exposure: No Smoking Status: Former smoker Tobacco Type: Cigarettes - Alcohol History How Often Do You Have a Drink Containing Alcohol: 2 to 3 times a week - Substance Use History Substance History: No History of Abuse Medications and Allergies Active Medications: Active Medications Acetaminophen (Tylenol) 650 mg PO Q4H PRN PRN Reason: PAIN SCALE 1 TO 2 Stop: 05/05/18 16:56 Albuterol (Duoneb Neb (Prn)) 1 ampul NEB Q2HR NEB PRN PRN Reason: WHEEZING Aspirin (Aspirin) 325 mg PO [employer] [facility] Stop: 05/04/18 23:00 Last Admin: 05/04/18 11:34 Dose: 325 mg Aspirin (Aspirin Chew) 81 mg PO DAILY [facility] Atorvastatin Calcium (Lipitor) 40 mg PO DAILY [facility] Clonidine HCl (Catapres) 0.2 mg PO Q6H PRN PRN Reason: SBP > 160 mmHg Clopidogrel Bisulfate (Plavix) 75 mg PO DAILY [facility] Diphenhydramine HCl (Benadryl Inj) 50 mg IV.PUSH [employer] [facility] Stop: 05/04/18 23:00 Last Admin: 05/04/18 12:33 Dose: 50 mg Famotidine (Pepcid Pf Inj) 20 mg IV.PUSH [employer] [facility] Stop: 05/04/18 23:00 Last Admin: 05/04/18 12:32 Dose: 20 mg Ferrous Sulfate (Ferosul) 325 mg PO DAILY [facility] Hydralazine HCl (Apresoline Inj) 10 mg IV.PUSH Q30M PRN PRN Reason: SBP > 160 mmHg Cefazolin Sodium/Dextrose (Ancef 2 Gm Premix Inj) 2 gm in 50 mls @ 100 mls/hr IV.SIG [employer] [facility] Stop: 05/04/18 23:00 Last Infusion: 05/04/18 15:00 Dose: Infused Sodium Chloride (Ns Inj) 1,000 mls @ 125 mls/hr IV.CONT .Q8H [facility] Last Admin: 05/04/18 11:34 Dose: 125 mls/hr Magnesium Sulfate 4 gm/ Sodium (Chloride) 100 mls @ 50 mls/hr IV.SIG UNSCH PRN PRN Reason: For Magnesium 0.9 - 1.1 mg/dL Magnesium Sulfate 2 gm/ Sodium (Chloride) 100 mls @ 50 mls/hr IV.SIG UNSCH PRN PRN Reason: For Magnesium 1.2 - 1.6 mg/dL Potassium Chloride (Kcl 40 Meq Premix Inj) 40 meq in 100 mls @ 25 mls/hr IV.SIG Q2H PRN PRN Reason: For Potassium 2.8 - 3.2 mEq/L Potassium Chloride (Kcl 20 Meq Premix Inj) 20 meq in 100 mls @ 50 mls/hr IV.SIG Q2H PRN PRN Reason: For Potassium 3.3 - 3.5 mEq/L Potassium Chloride (Kcl 40 Meq Premix Inj) 40 meq in 100 mls @ 25 mls/hr IV.SIG UNSCH PRN PRN Reason: For Potassium 3.3 - 3.5 mEq/L Potassium Chloride (Kcl 20 Meq Premix Inj) 20 meq in 100 mls @ 50 mls/hr IV.SIG Q2H PRN PRN Reason: For Potassium 2.8 - 3.2 mEq/L Potassium Phosphate 30 mmol/ (Sodium Chloride) 260 mls @ 42 mls/hr IV.SIG UNSCH PRN PRN Reason: SEE LABEL COMMENTS Sodium Phosphate 30 mmol/ (Sodium Chloride) 260 mls @ 42 mls/hr IV.SIG UNSCH PRN PRN Reason: For Phosphorus < 2.5 mg/dL Lamotrigine (Lamictal) 150 mg PO BID [facility] Magnesium Oxide (Mag-Ox) 800 mg PO UNSCH PRN PRN Reason: For Magnesium 1.2 - 1.6 mg/dL Methylprednisolone Sodium Succinate (Solumedrol Inj) 125 mg IV.PUSH [employer] [facility] Stop: 05/04/18 23:00 Last Admin: 05/04/18 12:32 Dose: 125 mg Miscellaneous (Pill Splitter) 1 each OTHER UNSCH PRN PRN Reason: SEE LABEL COMMENTS Montelukast Sodium (Singulair) 10 mg PO QPM [facility] Morphine Sulfate (Morphine Inj) 2 mg IV.PUSH Q3H PRN PRN Reason: PAIN SCALE 1-10 Last Admin: 05/04/18 19:31 Dose: 2 mg Mupirocin (Bactroban 2% Nasal Oint) 1 applicatio EACH NARE [employer] [facility] Stop: 05/07/18 11:15 Non-Formulary Medication (Cetirizine [Zyrtec]) 10 mg PO DAILY [facility] Non-Formulary Medication (Lamotrigine [Lamictal]) 150 mg PO BID [facility] Non-Formulary Medication (Melatonin [Melatonin]) 10 mg PO HS PRN PRN Reason: Insomnia Non-Formulary Medication (Multivitamin [Multivitamin]) 1 tab PO DAILY [facility] Non-Formulary Medication (Quetiapine [Seroquel]) 600 mg PO DAILY [facility] Ondansetron HCl (Zofran Inj) 4 mg IV.PUSH ONCE PRN PRN Reason: NAUSEA OR VOMITING Oxcarbazepine (Trileptal) 150 mg PO BID [facility] Oxcarbazepine (Trileptal) 150 mg PO BID [facility] Oxycodone/Acetaminophen (Percocet 5/325 Mg) 1 tab PO Q6H PRN PRN Reason: PAIN SCALE 3 TO 5 Last Admin: 05/04/18 20:03 Dose: 1 tab Pantoprazole Sodium (Protonix) 40 mg PO DAILY [facility] Polyethylene Glycol (Miralax) 17 gm PO DAILY PRN PRN Reason: Constipation Potassium Bicarb/Potassium Chloride (K-Lyte Cl Eff) 50 meq PO UNSCH PRN PRN Reason: For Potassium 3.3 - 3.5 mEq/L Potassium Phosphate (K-Phos Original) 2,000 mg PO Q4H PRN PRN Reason: Phosphorus Less Than 2.5 mg/dL Potassium Phosphate (K-Phos Original) 2,000 mg PO UNSCH PRN PRN Reason: SEE LABEL COMMENTS Primidone (Mysoline) 100 mg PO BID [facility] Umeclidinium/Vilanterol (Anoro-Ellipta 62.5/25 Mcg Inh) inhalation INH Q24H [facility] Allergies Allergy/AdvReac Type Severity Reaction Status Date / Time diatrizoate meglumine Allergy Severe Anaphylaxis Verified 04/19/18 08:35 gadobenic acid Allergy Severe Anaphylaxis Verified 04/19/18 08:35 gadodiamide Allergy Severe Anaphylaxis Verified 04/19/18 08:35 gadoteridol Allergy Severe Anaphylaxis Verified 04/19/18 08:35 iodixanol Allergy Severe Anaphylaxis Verified 04/19/18 08:35 iohexol Allergy Severe Anaphylaxis Verified 04/19/18 08:35 Home Medications Medication Instructions Recorded Confirmed Type amlodipine [Norvasc] 10 mg PO DAILY 12/21/17 05/04/18 History carvedilol [Coreg] 25 mg PO BID 12/21/17 05/04/18 History cetirizine [Zyrtec] 10 mg PO DAILY 12/21/17 05/04/18 History guaifenesin [Mucinex] 600 mg PO Q12H 12/21/17 05/04/18 History lamotrigine [Lamictal] 150 mg PO BID 12/21/17 05/04/18 History lisinopril 20 mg PO DAILY 12/21/17 05/04/18 History melatonin 10 mg PO HS PRN 12/21/17 05/04/18 History montelukast [Singulair] 10 mg PO QPM 12/21/17 05/04/18 History pantoprazole [Protonix] 40 mg PO DAILY 12/21/17 05/04/18 History primidone 100 mg PO BID 12/21/17 05/04/18 History quetiapine [Seroquel] 600 mg PO DAILY 12/21/17 05/04/18 History albuterol sulfate [Ventolin HFA] 2 puff INHALATION Q6H PRN 03/15/18 05/04/18 History atorvastatin 40 mg PO DAILY 03/15/18 05/04/18 History clonidine HCl 0.1 mg PO DAILY PRN 03/15/18 05/04/18 History magnesium 250 mg PO DAILY 03/15/18 05/04/18 History multivitamin 1 tab PO DAILY 03/15/18 05/04/18 History polyethylene glycol 3350 [Miralax] 17 g PO DAILY PRN 03/15/18 05/04/18 History umeclidinium-vilanterol [Anoro 1 inh INHALATION Q24H 03/15/18 05/04/18 History Ellipta] oxcarbazepine [Trileptal] 150 mg PO BID 04/19/18 05/04/18 History Physical Exam Vital signs: Vital Signs 05/04/18 12:33 05/04/18 16:20 05/04/18 16:25 Temperature 36.8 C 36.2 C L 36.2 C L Pulse Rate 63 60 Respiratory Rate 18 18 Blood Pressure 172/91 H 129/53 L Pulse Oximetry 99 99 05/04/18 20:27 Temperature Pulse Rate Respiratory Rate Blood Pressure Pulse Oximetry 100 Intake & Output 05/04/18 05/04/18 05/05/18 06:59 18:59 06:59 Intake Total 650 / 650 Output Total 200 / 200 Balance 450 / 450 Weight 87.5 kg Intake: IV 50 / 50 Ancef 2 GM Premix Inj 2 gm In 50 / 50 50 ml @ 100 mls/hr IV.SIG [employer] [facility] Rx#:[id number] Anesthesia Amount 600 / 600 Output: Urine Amount (Catheter) 200 / 200 Indwelling Temp Sensing 200 / 200 Catheter Other: Weight On Admission 87.5 kg Narrative: GENERAL: Frail elderly female, lying in bed, arousing from anesthesia, in significant distress due to flank pain. HEENT: Normocephalic. Atraumatic. Pupils equal, round, reactive, conjugate. Mucous membranes are moist NECK: Trachea is midline. There is no JVD. right IJ introducer sheath with transvenous pacer in place, site is clean and dry, dressing intact. CHEST: unlabored. equal chest rise. nc o2. CARDIOVASCULAR: normal rate, regular rhythm. Transvenous pacer is set VVI at a backup rate of 50. not currently paced. ABDOMEN: Soft, nontender, nondistended. No guarding. MUSCULOSKELETAL: Right groin and flank is significantly tender to palpation and has a large firm mass. Pulses 2+. No peripheral edema. bilateral groin sites are clean and dry, dressing intact. distal LE pulses are Dopplerable. NEUROLOGICAL: RASS -2. Arousing from anesthesia. follows commands. moves all extremities. no focal deficits. - Urinary Catheter Management Indwelling Temp Sensing Catheter Cath placed during this visit: yes Reason for continuing: Hourly intake/output Insertion date: 05/04/18 Insertion time: 14:29 Assessment and Plan - Assessment and Plan Plan: Assessment: 68-year-old female postop day 0 status post transcatheter aortic valve placement comp located by right retroperitoneal bleed and now postop day 0 status post emergent bring back and endovascular stenting for repair of right common femoral artery bleeding. Critically ill. Keep in ICU. Close watch over groin site as well as peripheral vascular checks. Trend H&H. S/p TAVR today via groin access - discussed with vascular surgery and TAVR team: will not load with 600mg plavix. will plan to start 75mg plavix tomorrow if no further bleeding complications. - mivf - close uop monitoring - frequent neurovascular checks - frequent groin checks - OOB after flat time Right retroperitoneal hematoma Hemorrhagic shock- resolving - s/p bringback to OR with endovascular stenting - now hemodynamically stable - trend H&H - no current need for transfusion - keep hgb > 8 - frequent groin checks - frequent neurovascular checks in the LEs - anticoagulation discussion above - Dr. Harden consulted and following Hypertension - goal sbp < 180 - add back antihypertensives as needed - hold antihypertensives tonight given recent bleeding. Congestive Heart Failure secondary to valvulopathy - mivf today - may need diuresis beginning after POD 1 Hyperlipidemia - restart home statin Bipolar disorder - restart home neuroleptics History of prior GI bleeding - restart home PPI Acute Anemia secondary to acute blood loss superimposed on Chronic microcytic anemia - trend H&H - transfuse to keep hgb > 8 severe COPD - nebs - aggressive pulmonary toilet - OOB with PT - wean o2 for goal spo2 > 90% advance diet after flat time SCDs AM CBC, BMP Critical care medicine will continue to follow while patient remains in the CVICU. Critical care time: 70 minutes, exclusive of separately billable procedures. actively at bedside managing acute change in condition, hemorrhagic shock, RP bleeding.
[2018-05-04] MEDS: Montelukast 10 MG Tablet PO SCH (22:45)
[2018-05-04] MEDS: lamoTRIgine 100 MG Tablet PO SCH (22:45)
[2018-05-04] MEDS: OXcarbazepine 150 MG Tablet PO SCH (22:45)
[2018-05-04] MEDS: Umeclindinium 62.5 MCG/Vilanterol 25 MCG Inhaler INH SCH (22:45)
[2018-05-05] MEDS: Melatonin 5 MG Tablet PO PRN ×2 (00:14→21:46)
[2018-05-05 01:15] LABS: Hematocrit 24.5 % (35.0-46.0); Hemoglobin 8.7 gm/dL (11.6-15.3); Mean Corpuscular HGB Conc 35.5 % (32.0-36.0); Mean Corpuscular Hemoglobin 30.4 pg (27.0-34.0); Mean Corpuscular Volume 85.5 fL (80.0-100.0); Platelet Count 215 th/mm3 (150-450); Red Blood Count 2.86 mil/mm3 (4.00-5.30); Red Cell Distribution Width 14.8 % (11.6-17.2); White Blood Count 10.8 th/mm3 (4.0-11.0)
[2018-05-05 04:44] LABS: Hematocrit 24.4 % (35.0-46.0); Hemoglobin 8.1 gm/dL (11.6-15.3); Mean Corpuscular HGB Conc 33.1 % (32.0-36.0); Mean Corpuscular Hemoglobin 29.1 pg (27.0-34.0); Mean Platelet Volume 7.2 fL (7.0-11.0); Platelet Count 213 th/mm3 (150-450); Red Blood Count 2.77 mil/mm3 (4.00-5.30); Red Cell Distribution Width 15.1 % (11.6-17.2); White Blood Count 11.4 th/mm3 (4.0-11.0)
[2018-05-05 04:54] LABS: Calcium 7.9 mg/dL (8.5-10.1); Carbon Dioxide 28.6 meq/L (21.0-32.0); Magnesium 2.3 mg/dL (1.5-2.5); Potassium 4.8 meq/L (3.5-5.1)
--- NOTE | 2018-05-05 07:51 | P.PNVS ---
Subjective Post Op Day #: 1 Procedure: R iliac stent for RP hemorrhage Subjective/Hospital Course: 68 yo female POD#1 s/p TAVR and post-operative iliac stent for RP hematoma looks great this morning intermittent R flank pain HD stable and Hcts stable foot and groin ok Objective Vital Signs / I&O: Vital Signs 05/04/18 12:33 05/04/18 16:20 05/04/18 16:25 Temperature 98.2 F 97.2 F L 97.2 F L Pulse Rate 63 60 Respiratory Rate 18 18 Blood Pressure 172/91 H 129/53 L Pulse Oximetry 99 99 05/04/18 19:00 05/04/18 19:15 05/04/18 20:27 Temperature 97.5 F L Pulse Rate 73 68 Respiratory Rate 14 Blood Pressure 145/67 H Pulse Oximetry 100 100 05/04/18 23:00 05/05/18 03:00 05/05/18 07:00 Temperature 97.9 F 97.9 F 98.2 F Pulse Rate 80 74 72 Respiratory Rate 18 18 14 Blood Pressure 135/71 119/64 139/63 Pulse Oximetry 99 99 99 Intake & Output 05/04/18 05/05/18 05/05/18 18:59 06:59 18:59 Intake Total 650 / 650 365 / 365 Output Total 200 / 200 1300 / 1300 Balance 450 / 450 -935 / -935 Weight 87.5 kg 89 kg Intake: IV 50 / 50 125 / 125 NS Inj 1,000 ML @ 125 mls/hr IV 125 / 125 .CONT .Q8H [facility] Rx#:[id number] Ancef 2 GM Premix Inj 2 gm In 50 / 50 50 ml @ 100 mls/hr IV.SIG [employer] [facility] Rx#:[id number] Oral 240 / 240 Anesthesia Amount 600 / 600 Output: Urine 1300 / 1300 Urine Amount (Catheter) 200 / 200 Indwelling Temp Sensing 200 / 200 Catheter Other: Weight On Admission 87.5 kg Exam: R groin soft and NT palpable DP Laboratory Results - last 24 hr 05/04/18 05/04/18 05/04/18 10:30 10:30 10:30 WBC 7.0 RBC 3.69 L Hgb 11.5 L Hct 32.5 L MCV 87.9 MCH 31.2 MCHC 35.5 RDW 15.2 Plt Count 204 MPV 7.1 Neut % (Auto) 75.7 H Lymph % (Auto) 15.1 [place] % (Auto) 6.7 Eos % (Auto) 2.2 Baso % (Auto) 0.3 Neut # (Auto) 5.3 Lymph # (Auto) 1.0 [place] # (Auto) 0.5 Eos # (Auto) 0.2 Baso # (Auto) 0.0 WBC Differential . Differential Comment Auto diff final PT 9.9 INR 1.0 APTT 25.5 Sodium 133 L Potassium 4.4 Chloride 95 L Carbon Dioxide 30.7 Anion Gap 7 BUN 13 Creatinine 0.77 Estimated GFR 74 L Random Glucose 101 Calcium 9.3 Phosphorus Magnesium Blood Type Antibody Screen MTS Gel Crossmatch Bld Prod Order Comment 05/04/18 05/04/18 05/05/18 10:30 19:46 00:49 WBC 8.8 10.8 RBC 2.94 L 2.86 L Hgb 8.7 L D 8.7 L Hct 25.3 L 24.5 L MCV 86.0 85.5 MCH 29.5 30.4 MCHC 34.3 35.5 RDW 14.7 14.8 Plt Count 195 215 MPV 7.2 7.0 Neut % (Auto) Lymph % (Auto) [place] % (Auto) Eos % (Auto) Baso % (Auto) Neut # (Auto) Lymph # (Auto) [place] # (Auto) Eos # (Auto) Baso # (Auto) WBC Differential Differential Comment PT INR APTT Sodium Potassium Chloride Carbon Dioxide Anion Gap BUN Creatinine Estimated GFR Random Glucose Calcium Phosphorus Magnesium Blood Type O Positive Antibody Screen Negative MTS Gel Crossmatch See Detail Bld Prod Order Comment 05/05/18 05/05/18 04:10 04:10 WBC 11.4 H RBC 2.77 L Hgb 8.1 L Hct 24.4 L MCV 88.0 MCH 29.1 MCHC 33.1 RDW 15.1 Plt Count 213 MPV 7.2 Neut % (Auto) Lymph % (Auto) [place] % (Auto) Eos % (Auto) Baso % (Auto) Neut # (Auto) Lymph # (Auto) [place] # (Auto) Eos # (Auto) Baso # (Auto) WBC Differential Differential Comment PT INR APTT Sodium 133 L Potassium 4.8 Chloride 99 Carbon Dioxide 28.6 Anion Gap 5 BUN 11 Creatinine 0.78 Estimated GFR 73 L Random Glucose 138 H Calcium 7.9 L D Phosphorus 4.0 Magnesium 2.3 Blood Type Antibody Screen MTS Gel Crossmatch Bld Prod Order Comment Assessment and Plan - Assessment (1) Retroperitoneal bleeding Code(s): R58 - Hemorrhage, not elsewhere classified Status: Acute - Plan POD#1 s/p TAVR and then iliac stent for RP hematoma looks great palpable pulses 1. plavix ok 2. recheck CBC tomorrow 3. if stable, ok to d/c home and will arrange f/u 1m with ABIs Discharge Planning: as early as tomorrow. will need ABIs with post-op visit
[2018-05-05] MEDS: lamoTRIgine 100 MG Tablet PO SCH ×2 (08:06→21:47)
[2018-05-05] MEDS: OXcarbazepine 150 MG Tablet PO SCH ×2 (08:07→21:49)
[2018-05-05] MEDS ORDERED: OXcarbazepine 150 MG Tablet PO SCH (09:00)
[2018-05-05] MEDS ORDERED: Ferrous Sulfate 325 MG Tablet PO SCH (09:00)
[2018-05-05] MEDS ORDERED: lamoTRIgine 100 MG Tablet PO SCH (09:00)
--- NOTE | 2018-05-05 09:40 | P.PNCA ---
Subjective Interval history: Doing really well this morning. She is comfortable in bed without complaints. She was up to a chair earlier today for 3 hours without complaints. She had some mild lightheadedness with standing the first time, but no further episodes after that. Blood pressures been stable. She was seen by Dr. Harden this morning. I discussed the case with him, he feels like she is doing really well today and we can initiate antiplatelet therapy. Medications and Allergies Active Medications: Active Medications Acetaminophen (Tylenol) 650 mg PO Q4H PRN PRN Reason: PAIN SCALE 1 TO 2 Stop: 05/05/18 16:56 Albuterol (Duoneb Neb (Prn)) 1 ampul NEB Q2HR NEB PRN PRN Reason: WHEEZING Aspirin (Aspirin Chew) 81 mg PO DAILY [facility] Last Admin: 05/05/18 08:06 Dose: 81 mg Atorvastatin Calcium (Lipitor) 40 mg PO DAILY [facility] Last Admin: 05/05/18 08:08 Dose: 40 mg Cetirizine HCl (Zyrtec) 10 mg PO DAILY [facility] Last Admin: 05/05/18 08:08 Dose: Not Given Clonidine HCl (Catapres) 0.2 mg PO Q6H PRN PRN Reason: SBP > 160 mmHg Last Admin: 05/05/18 08:05 Dose: 0.2 mg Clopidogrel Bisulfate (Plavix) 75 mg PO DAILY [facility] Last Admin: 05/05/18 08:08 Dose: 75 mg Ferrous Sulfate (Ferosul) 325 mg PO BID [facility] Hydralazine HCl (Apresoline Inj) 10 mg IV.PUSH Q30M PRN PRN Reason: SBP > 160 mmHg Sodium Chloride (Ns Inj) 1,000 mls @ 125 mls/hr IV.CONT .Q8H [facility] Last Infusion: 05/04/18 19:00 Dose: Infused Magnesium Sulfate 4 gm/ Sodium (Chloride) 100 mls @ 50 mls/hr IV.SIG UNSCH PRN PRN Reason: For Magnesium 0.9 - 1.1 mg/dL Magnesium Sulfate 2 gm/ Sodium (Chloride) 100 mls @ 50 mls/hr IV.SIG UNSCH PRN PRN Reason: For Magnesium 1.2 - 1.6 mg/dL Potassium Chloride (Kcl 40 Meq Premix Inj) 40 meq in 100 mls @ 25 mls/hr IV.SIG Q2H PRN PRN Reason: For Potassium 2.8 - 3.2 mEq/L Potassium Chloride (Kcl 20 Meq Premix Inj) 20 meq in 100 mls @ 50 mls/hr IV.SIG Q2H PRN PRN Reason: For Potassium 3.3 - 3.5 mEq/L Potassium Chloride (Kcl 40 Meq Premix Inj) 40 meq in 100 mls @ 25 mls/hr IV.SIG UNSCH PRN PRN Reason: For Potassium 3.3 - 3.5 mEq/L Potassium Chloride (Kcl 20 Meq Premix Inj) 20 meq in 100 mls @ 50 mls/hr IV.SIG Q2H PRN PRN Reason: For Potassium 2.8 - 3.2 mEq/L Potassium Phosphate 30 mmol/ (Sodium Chloride) 260 mls @ 42 mls/hr IV.SIG UNSCH PRN PRN Reason: SEE LABEL COMMENTS Sodium Phosphate 30 mmol/ (Sodium Chloride) 260 mls @ 42 mls/hr IV.SIG UNSCH PRN PRN Reason: For Phosphorus < 2.5 mg/dL Lamotrigine (Lamictal) 150 mg PO BID [facility] Last Admin: 05/05/18 08:06 Dose: 150 mg Magnesium Oxide (Mag-Ox) 800 mg PO UNSCH PRN PRN Reason: For Magnesium 1.2 - 1.6 mg/dL Melatonin (Melatonin) 10 mg PO HS PRN PRN Reason: INSOMNIA Last Admin: 05/05/18 00:14 Dose: 10 mg Miscellaneous (Pill Splitter) 1 each OTHER UNSCH PRN PRN Reason: SEE LABEL COMMENTS Montelukast Sodium (Singulair) 10 mg PO [facility] Last Admin: 05/04/18 22:45 Dose: 10 mg Morphine Sulfate (Morphine Inj) 2 mg IV.PUSH Q3H PRN PRN Reason: PAIN SCALE 1-10 Last Admin: 05/04/18 22:45 Dose: 2 mg Multivitamins (Theragran) 1 tab PO DAILY [facility] Last Admin: 05/05/18 08:07 Dose: 1 tab Mupirocin (Bactroban 2% Nasal Oint) 1 applicatio EACH [employer] [facility] Stop: 05/07/18 11:15 Non-Formulary Medication (Quetiapine [Seroquel]) 600 mg PO DAILY [facility] Oxcarbazepine (Trileptal) 150 mg PO BID [facility] Last Admin: 05/05/18 08:07 Dose: 150 mg Oxycodone/Acetaminophen (Percocet 5/325 Mg) 1 tab PO Q6H PRN PRN Reason: PAIN SCALE 3 TO 5 Last Admin: 05/05/18 08:08 Dose: 1 tab Pantoprazole Sodium (Protonix) 40 mg PO DAILY [facility] Last Admin: 05/05/18 08:07 Dose: 40 mg Polyethylene Glycol (Miralax) 17 gm PO DAILY PRN PRN Reason: Constipation Potassium Bicarb/Potassium Chloride (K-Lyte Cl Eff) 50 meq PO UNSCH PRN PRN Reason: For Potassium 3.3 - 3.5 mEq/L Potassium Phosphate (K-Phos Original) 2,000 mg PO Q4H PRN PRN Reason: Phosphorus Less Than 2.5 mg/dL Potassium Phosphate (K-Phos Original) 2,000 mg PO UNSCH PRN PRN Reason: SEE LABEL COMMENTS Primidone (Mysoline) 100 mg PO BID [facility] Umeclidinium/Vilanterol (Anoro-Ellipta 62.5/25 Mcg Inh) 1 inhalation INH Q24H [facility] Last Admin: 05/04/18 22:45 Dose: 1 inhalation Allergies Allergy/AdvReac Type Severity Reaction Status Date / Time diatrizoate meglumine Allergy Severe Anaphylaxis Verified 04/19/18 08:35 gadobenic acid Allergy Severe Anaphylaxis Verified 04/19/18 08:35 gadodiamide Allergy Severe Anaphylaxis Verified 04/19/18 08:35 gadoteridol Allergy Severe Anaphylaxis Verified 04/19/18 08:35 iodixanol Allergy Severe Anaphylaxis Verified 04/19/18 08:35 iohexol Allergy Severe Anaphylaxis Verified 04/19/18 08:35 Home Medications Medication Instructions Recorded Confirmed Type amlodipine [Norvasc] 10 mg PO DAILY 12/21/17 05/04/18 History carvedilol [Coreg] 25 mg PO BID 12/21/17 05/04/18 History cetirizine [Zyrtec] 10 mg PO DAILY 12/21/17 05/04/18 History guaifenesin [Mucinex] 600 mg PO Q12H 12/21/17 05/04/18 History lamotrigine [Lamictal] 150 mg PO BID 12/21/17 05/04/18 History lisinopril 20 mg PO DAILY 12/21/17 05/04/18 History melatonin 10 mg PO HS PRN 12/21/17 05/04/18 History montelukast [Singulair] 10 mg PO QPM 12/21/17 05/04/18 History pantoprazole [Protonix] 40 mg PO DAILY 12/21/17 05/04/18 History primidone 100 mg PO BID 12/21/17 05/04/18 History quetiapine [Seroquel] 600 mg PO DAILY 12/21/17 05/04/18 History albuterol sulfate [Ventolin HFA] 2 puff INHALATION Q6H PRN 03/15/18 05/04/18 History atorvastatin 40 mg PO DAILY 03/15/18 05/04/18 History clonidine HCl 0.1 mg PO DAILY PRN 03/15/18 05/04/18 History magnesium 250 mg PO DAILY 03/15/18 05/04/18 History multivitamin 1 tab PO DAILY 03/15/18 05/04/18 History polyethylene glycol 3350 [Miralax] 17 g PO DAILY PRN 03/15/18 05/04/18 History umeclidinium-vilanterol [Anoro 1 inh INHALATION Q24H 03/15/18 05/04/18 History Ellipta] oxcarbazepine [Trileptal] 150 mg PO BID 04/19/18 05/04/18 History Physical Exam Vital signs: Vital Signs 05/04/18 12:33 05/04/18 16:20 05/04/18 16:25 Temperature 98.2 F 97.2 F L 97.2 F L Pulse Rate 63 60 Respiratory Rate 18 18 Blood Pressure 172/91 H 129/53 L Pulse Oximetry 99 99 05/04/18 19:00 05/04/18 19:15 05/04/18 20:27 Temperature 97.5 F L Pulse Rate 73 68 Respiratory Rate 14 Blood Pressure 145/67 H Pulse Oximetry 100 100 05/04/18 23:00 05/05/18 03:00 05/05/18 07:00 Temperature 97.9 F 97.9 F 98.2 F Pulse Rate 80 74 72 Respiratory Rate 18 18 14 Blood Pressure 135/71 119/64 139/63 Pulse Oximetry 99 99 99 05/05/18 08:00 05/05/18 08:33 05/05/18 08:58 Temperature Pulse Rate Respiratory Rate 14 Blood Pressure Pulse Oximetry 99 99 Intake & Output 05/04/18 05/05/18 05/05/18 18:59 06:59 18:59 Intake Total 650 / 650 365 / 365 5 / 5 Output Total 200 / 200 1300 / 1300 Balance 450 / 450 -935 / -935 5 / 5 Weight 87.5 kg 89 kg Intake: IV 50 / 50 125 / 125 5 / 5 NS Inj 1,000 ML @ 125 mls/hr IV 125 / 125 .CONT .Q8H [facility] Rx#:[id number] Ancef 2 GM Premix Inj 2 gm In 50 / 50 50 ml @ 100 mls/hr IV.SIG [employer] [facility] Rx#:[id number] Oral 240 / 240 Anesthesia Amount 600 / 600 Output: Urine 1300 / 1300 Urine Amount (Catheter) 200 / 200 Indwelling Temp Sensing 200 / 200 Catheter Other: Weight On Admission 87.5 kg - Constitutional no acute distress - Routine HEENT Exam Head: Present: normocephalic Eye: Absent: EOMI, PERRL ENT: Present: mucous membranes moist - Routine Neck Exam Absent: JVD - Routine Respiratory Exam Present: CTA bilaterally - Routine Cardiovascular Exam Present: RRR. Absent: murmur - Routine Abdominal Exam Present: soft, normoactive bowel sounds - Routine Extremities Exam Present: pulses intact. Absent: edema - Routine Neurological Exam Present: oriented X3, CN II-XII intact. Absent: sensory deficit, motor deficit - Urinary Catheter Management Indwelling Temp Sensing Catheter Cath placed during this visit: yes Reason for continuing: Hourly intake/output Insertion date: 05/04/18 Insertion time: 14:29 Results 05/05/18 04:10 05/05/18 04:10 Coagulation 05/04/18 Range/Units 10:30 PT 9.9 (9.8-11.6) sec APTT 25.5 (23.4-31.7) sec CBC 05/04/18 05/04/18 05/05/18 Range/Units 10:30 19:46 00:49 WBC 7.0 8.8 10.8 (4.0-11.0) th/mm3 RBC 3.69 L 2.94 L 2.86 L (4.00-5.30) mil/mm3 Hgb 11.5 L 8.7 L D 8.7 L (11.6-15.3) gm/dL Hct 32.5 L 25.3 L 24.5 L (35.0-46.0) % Plt Count 204 195 215 (150-450) th/mm3 Neut # (Auto) 5.3 (1.8-7.7) th/mm3 Lymph # (Auto) 1.0 (1.0-4.8) th/mm3 [place] # (Auto) 0.5 (0.0-0.9) th/mm3 Eos # (Auto) 0.2 (0.0-0.4) th/mm3 Baso # (Auto) 0.0 (0.0-0.2) th/mm3 05/05/18 Range/Units 04:10 WBC 11.4 H (4.0-11.0) th/mm3 RBC 2.77 L (4.00-5.30) mil/mm3 Hgb 8.1 L (11.6-15.3) gm/dL Hct 24.4 L (35.0-46.0) % Plt Count 213 (150-450) th/mm3 Neut # (Auto) (1.8-7.7) th/mm3 Lymph # (Auto) (1.0-4.8) th/mm3 [place] # (Auto) (0.0-0.9) th/mm3 Eos # (Auto) (0.0-0.4) th/mm3 Baso # (Auto) (0.0-0.2) th/mm3 Comprehensive Metabolic Panel 05/04/18 05/05/18 Range/Units 10:30 04:10 Sodium 133 L 133 L (136-145) meq/L Potassium 4.4 4.8 (3.5-5.1) meq/L Chloride 95 L 99 (98-107) meq/L Carbon Dioxide 30.7 28.6 (21.0-32.0) meq/L BUN 13 11 (7-18) mg/dL Creatinine 0.77 0.78 (0.50-1.00) mg/dL Calcium 9.3 7.9 L D (8.5-10.1) mg/dL Intake and Output 05/04/18 05/05/18 05/05/18 22:59 06:59 14:59 Intake Total 775 / 775 240 / 240 5 / 5 Output Total 200 / 200 1300 / 1300 Balance 575 / 575 -1060 / -1060 5 / 5 Intake: IV 175 / 175 5 / 5 NS Inj 1,000 ML @ 125 mls/hr IV 125 / 125 .CONT .Q8H [facility] Rx#:[id number] Ancef 2 GM Premix Inj 2 gm In 50 / 50 50 ml @ 100 mls/hr IV.SIG [employer] [facility] Rx#:[id number] Oral 240 / 240 Anesthesia Amount 600 / 600 Output: Urine 1300 / 1300 Urine Amount (Catheter) 200 / 200 Indwelling Temp Sensing 200 / 200 Catheter Other: Weight 89 kg - Imaging and Cardiology Imaging: Impressions Abdomen/Pelvis CT 05/04/18 16:21 CONCLUSION: Large right retroperitoneal hematoma. Findings were reviewed with Dr. Montanez and Dr. Harden. Assessment and Plan - Assessment (1) Severe aortic valve stenosis Code(s): I35.0 - Nonrheumatic aortic (valve) stenosis Status: Acute (2) Acute on chronic diastolic (congestive) heart failure Code(s): I50.33 - Acute on chronic diastolic (congestive) heart failure Status : Acute (3) Retroperitoneal bleed Code(s): R58 - Hemorrhage, not elsewhere classified Status: Acute - Plan Severe aortic valve stenosis status post transcatheter aortic valve replacement. Doing well. Will follow up with a limited transthoracic echocardiogram. Clinically from a valve perspective she is symptomatically doing well. Acute on chronic diastolic congestive heart failure. We will continue gentle diuresis. Monitor creatinine and ins and outs closely. Retroperitoneal bleed. Appreciate vascular surgery assistance yesterday. Iliac covered stent placed. Suspect potential trauma from hemostatic closure device may have had a small iliac perforation which is now sealed. Will monitor hemoglobin closely. If her hemoglobin drops less than 8 g/dL, we will consider transfusion. Continue ferrous sulfate twice daily. Intermittent intraventricular conduction delay. Appreciate electrophysiology assistance. Will monitor another 24 hours. We will then make a decision on potential loop recorder versus permanent pacemaker.
[2018-05-05] MEDS: Primidone 50 MG Tablet PO SCH ×2 (10:17→22:07)
--- NOTE | 2018-05-05 11:05 | ECHRPT ---
Indication: HEART FAILURE CONCLUSIONS The left ventricular systolic function is hyperdynamic with an estimated ejection fraction in the ra nge of 65- 70%. Normal left ventricular size. Wall thickness is normal. No regional wall motion abnormalities are present. The aortic valve is not well visualized. No perivalvular leak Aortic valve area is 1.4 cm. Aortic valve mean gradient is 17 mmHg. The pulmonary valve is not well visualized. BP: / HR: Rhythm: MEASUREMENTS (Male / Female) Normal Values Technical Quality: 2D ECHO LV Diastolic Diameter PLAX 4.9 cm 4.2 - 5.9 / 3.9 - 5.3 cm LV Systolic Diameter PLAX 3.3 cm IVS Diastolic Thickness 1.1 cm 0.6 - 1.0 / 0.6 - 0.9 cm LVPW Diastolic Thickness 1.1 cm 0.6 - 1.0 / 0.6 - 0.9 cm LV Relative Wall Thickness 0.5 LVOT Diameter 1.8 cm LV Ejection Fraction MOD 4C 69.0 % LV Ejection Fraction 4C AL 70.1 % M-MODE Aortic Root Diameter MM 1.4 cm AV Cusp Separation MM 1.3 cm DOPPLER AV Peak Velocity 310.7 cm/s AV Peak Gradient 38.6 mmHg AV Mean Gradient 17.0 mmHg AV Velocity Time Integral 55.1 cm LVOT Peak Velocity 151.5 cm/s LVOT Peak Gradient 9.2 mmHg LVOT Velocity Time Integral 29.4 cm AV Area Cont Eq vti 1.4 cm AV Area Cont Eq pk 1.2 cm FINDINGS LEFT VENTRICLE The left ventricular systolic function is hyperdynamic with an estimated ejection fraction in the ra nge of 65- 70%. Normal left ventricular size. Wall thickness is normal. No regional wall motion abnormalities are present. RIGHT VENTRICLE Normal right ventricular size and systolic function. LEFT ATRIUM The left atrial size is normal. RIGHT ATRIUM The right atrial size is normal. ATRIAL SEPTUM Normal atrial septal thickness without atrial level shunting by limited color doppler interrogation. AORTA The aortic root and proximal ascending aorta are normal in size on limited imaging. MITRAL VALVE Structurally normal mitral valve. No mitral valve stenosis or regurgitation. AORTIC VALVE The aortic valve is not well visualized. No perivalvular leak Aortic valve area is 1.4 cm. Aortic valve mean gradient is 17 mmHg. TRICUSPID VALVE Structurally normal tricuspid valve. No tricuspid valve stenosis or regurgitation. PULMONARY VALVE The pulmonary valve is not well visualized. VESSELS The inferior vena cava is normal in size. PERICARDIUM No pericardial effusion. Jalen Shipman MD, FACC (Electronically Signed) Final Date:05 May 2018 11:03
--- NOTE | 2018-05-05 12:09 | ECG ---
Date Performed: 05/04/2018 Time Performed: 18:39:08 PTAGE: 68 years EKG: Sinus rhythm Normal ECG Since the PREVIOUS TRACING , no significant change noted PREVIOUS TRACIN05/04/2018 11.44 DOCTOR: Michelet Aragon Interpretating Date/Time 05/05/2018 12:08:38
--- NOTE | 2018-05-05 14:46 | ECG ---
Date Performed: 05/05/2018 Time Performed: 05:37:40 PTAGE: 68 years EKG: Sinus rhythm with interpolated PVC(s). Left bundle branch block Compared to previous tracing Left bundle branch b lock is now present and rate is faster Abnormal ECG PREVIOUS TRACING : 05/04/2018 18.39 DOCTOR: Michelet Aragon Interpretating Date/Time 05/05/2018 14:45:07
--- NOTE | 2018-05-05 16:19 | P.PNCV ---
- Note Subjective/Hospital Course: 68-year-old female with severe aortic stenosis and severe COPD with FEV1 50% of predicted who presents for transcatheter aortic valve replacement. She underwent her transcatheter aortic valve replacement under general anesthesia via common iliac access. The placement of the valve was uncomplicated and intraoperative echocardiogram demonstrated no perivalvular leak and good placement. Immediately postoperatively she was extubated and taken to CVICU where she was acutely hypotensive, unstable with new severe right flank pain. She immediately went down for emergent noncontrasted CT abdomen pelvis which demonstrated large fluid collection in the right retroperitoneum. Dr. Harden the on-call vascular surgeon was consulted and she was brought the patient emergently to the operating room for endovascular femoral stenting. PMH : Anemia (Microcytic anemia consistent with iron deficiency anemia. history of recurrent occult GI bleed. She has extensive GI workup which did not localize the source of bleed. received periodic transfusion and iron infusion, Anxiety, Arthritis, Chronic Obstructive Pulmonary Disease, Colitis, Diverticulitis, Heart Disease Cancer in 2006 procedures : 05/04 TAVR Retroperitoneal hematoma, iliac artery injury after TAVR./ Dr Harden PROCEDURE PERFORMED: 1. Ultrasound-guided access to right common femoral artery. 2. Iliac angiogram. 3. Intravascular ultrasound of common iliac artery and external iliac artery. 4. Stent placement of iliac artery with an 8 x 50 Viabahn. 5. Right common femoral artery Angio-Seal (8-Setswana). echo: 05/05 CONCLUSIONS The left ventricular systolic function is hyperdynamic with an estimated ejection fraction in the range of 65- 70%. Normal left ventricular size. Wall thickness is normal. No regional wall motion abnormalities are present. The aortic valve is not well visualized. No perivalvular leak Aortic valve area is 1.4 cm. Aortic valve mean gradient is 17 mmHg. The pulmonary valve is not well visualized. 05/05 pt doing well , dressing to both groin sites intermittent right flank pain Intermittent intraventricular conduction delay, eval by Dr Howard Will monitor another 24 hours. We will then make a decision on potential loop recorder versus permanent pacemaker Objective: Vital Signs - 24 hr 05/04/18 16:20 05/04/18 16:25 05/04/18 19:00 Temperature 97.2 F L 97.2 F L Pulse Rate 60 73 Respiratory Rate 18 Blood Pressure 129/53 L Pulse Oximetry 99 05/04/18 19:15 05/04/18 20:27 05/04/18 23:00 Temperature 97.5 F L 97.9 F Pulse Rate 68 80 Respiratory Rate 14 18 Blood Pressure 145/67 H 135/71 Pulse Oximetry 100 100 99 05/05/18 03:00 05/05/18 07:00 05/05/18 08:00 Temperature 97.9 F 98.2 F Pulse Rate 74 72 Respiratory Rate 18 14 Blood Pressure 119/64 139/63 Pulse Oximetry 99 99 99 05/05/18 08:33 05/05/18 08:58 05/05/18 11:00 Temperature 98.4 F Pulse Rate 72 Respiratory Rate 14 15 Blood Pressure 143/57 H Pulse Oximetry 99 99 05/05/18 15:00 Temperature 98.5 F Pulse Rate 81 Respiratory Rate 17 Blood Pressure 122/62 Pulse Oximetry 97 GENERAL: A&O x 3 SKIN: Warm and dry. puncture sites both groins , minimal ecchymosis , HEAD: Normocephalic. EYES: No scleral icterus. No injection or drainage. NECK: Supple, trachea midline. No JVD or lymphadenopathy. CARDIOVASCULAR: Regular rate and rhythm without murmurs, gallops, or rubs. + distal pulses both feet / warm RESPIRATORY: Breath sounds equal bilaterally. No accessory muscle use. GASTROINTESTINAL: Abdomen soft, non-tender, nondistended. MUSCULOSKELETAL: No cyanosis, or edema. BACK: Nontender without obvious deformity. No CVA tenderness. Labs: Laboratory Results - last 12 hr 05/05/18 05/05/18 04:10 04:10 WBC 11.4 H RBC 2.77 L Hgb 8.1 L Hct 24.4 L MCV 88.0 MCH 29.1 MCHC 33.1 RDW 15.1 Plt Count 213 MPV 7.2 Sodium 133 L Potassium 4.8 Chloride 99 Carbon Dioxide 28.6 Anion Gap 5 BUN 11 Creatinine 0.78 Estimated GFR 73 L Random Glucose 138 H Calcium 7.9 L D Phosphorus 4.0 Magnesium 2.3 Result Diagrams: 05/05/18 04:10 05/05/18 04:10 Telemetry: SR with intermittent intraventricular conduction delay - Plan (3) S/P TAVR (transcatheter aortic valve replacement) Plan: on ASA , plavix post retro peritoneal hemorrhage HGB 8.1, on iron post Stent placement of iliac artery with an 8 x 50 Viabahn. post intermittent intraventricular conduction delay eval for another 24 hrs to eval need for LOOP recorder vs permanent pacer monitor HGB
[2018-05-05] MEDS ORDERED: Sodium Chloride 0.9% 2 ML Flush PRN IV.FLUSH (17:29)
--- NOTE | 2018-05-05 19:24 | P.PNCC ---
Subjective Subjective Remarks/Hospital Course: Hospital Course: This is a 68-year-old female with severe aortic stenosis and severe COPD with FEV1 50% of predicted who presents for transcatheter aortic valve replacement. She underwent her transcatheter aortic valve replacement under general anesthesia via common iliac access. The placement of the valve was uncomplicated and intraoperative echocardiogram demonstrated no perivalvular leak and good placement. Immediately postoperatively she was extubated and taken to CVICU where she was acutely hypotensive, unstable with new severe right flank pain. I was present at bedside when the patient arrived to the CVICU. Immediately went down for emergent noncontrasted CT abdomen pelvis which demonstrated large fluid collection in the right retroperitoneum. I spoke directly with Dr. Harden the on-call vascular surgeon and we brought the patient emergently to the operating room for endovascular femoral stenting. Due to with patient's arousal from anesthesia as well as the critical nature of the acute complaint, complete review of systems is unobtainable. Limited review of systems is positive for right flank pain, negative for headache, negative for chest pain, shortness of breath, nausea, vomiting, sore throat. Subjective: 05/05: clinically doing well after stenting. oob to chair. hgb stable. denies complaints. Objective Vital Signs / I&O: Vital Signs 05/04/18 20:27 05/04/18 23:00 05/05/18 03:00 Temperature 36.6 C 36.6 C Pulse Rate 80 74 Respiratory Rate 18 18 Blood Pressure 135/71 119/64 Pulse Oximetry 100 99 99 05/05/18 07:00 05/05/18 08:00 05/05/18 08:33 Temperature 36.8 C Pulse Rate 72 Respiratory Rate 14 14 Blood Pressure 139/63 Pulse Oximetry 99 99 05/05/18 08:58 05/05/18 11:00 05/05/18 15:00 Temperature 36.9 C 36.9 C Pulse Rate 72 81 Respiratory Rate 15 17 Blood Pressure 143/57 H 122/62 Pulse Oximetry 99 99 97 05/05/18 18:18 Temperature Pulse Rate Respiratory Rate 15 Blood Pressure Pulse Oximetry Intake & Output 05/05/18 05/05/18 05/06/18 06:59 18:59 06:59 Intake Total 365 / 365 1545 / 1545 Output Total 1300 / 1300 1000 / 1000 Balance -935 / -935 545 / 545 Weight 89 kg Intake: IV 125 / 125 5 / 5 NS Inj 1,000 ML @ 125 mls/hr IV 125 / 125 .CONT .Q8H [facility] Rx#:[id number] Oral 240 / 240 1540 / 1540 Output: Urine 1300 / 1300 700 / 700 Urine Amount (Catheter) 300 / 300 Indwelling Temp Sensing 300 / 300 Catheter Other: # Voids 2 Result Diagrams: 05/05/18 04:10 05/05/18 04:10 Objective Remarks: GENERAL: Frail elderly female, sitting in a chair, no acute distress. HEENT: Normocephalic. Atraumatic. Pupils equal, round, reactive, conjugate. Mucous membranes are moist NECK: Trachea is midline. There is no JVD. right IJ introducer sheath with transvenous pacer in place, site is clean and dry, dressing intact. CHEST: unlabored. equal chest rise. nc o2. CARDIOVASCULAR: normal rate, regular rhythm. Transvenous pacer is set VVI at a backup rate of 50. not currently paced. ABDOMEN: Soft, nontender, nondistended. No guarding. MUSCULOSKELETAL: Right groin with stable hematoma. improved tenderness. distal LE pulses are Dopplerable. NEUROLOGICAL: RASS 0. awake, alert. follows commands. moves all extremities. no focal deficits. Assessment and Plan - Assessment and Plan Plan: Assessment: 68-year-old female postop day 1 status post transcatheter aortic valve placement comp located by right retroperitoneal bleed and now postop day 1 status post emergent bring back and endovascular stenting for repair of right common femoral artery bleeding. clinically improving. keep in ICU another day. S/p TAVR 05/04 via groin access - start plavix 75mg po daily - d/c mivf - close uop monitoring - frequent neurovascular checks - frequent groin checks - OOB Right retroperitoneal hematoma Hemorrhagic shock- resolved - s/p bringback to OR with endovascular stenting 05/04 - now hemodynamically stable - trend H&H - no current need for transfusion - keep hgb > 8 - frequent groin checks - frequent neurovascular checks in the LEs - anticoagulation discussion above - Dr. Harden consulted and following Hypertension - goal sbp < 180 - add back antihypertensives as needed Congestive Heart Failure secondary to valvulopathy - start gentle diuresis. Hyperlipidemia - home statin Bipolar disorder - home neuroleptics History of prior GI bleeding - home PPI Acute Anemia secondary to acute blood loss superimposed on Chronic microcytic anemia - trend H&H - transfuse to keep hgb > 8 severe COPD - nebs - aggressive pulmonary toilet - OOB with PT - wean o2 for goal spo2 > 90% advance diet after flat time SCDs AM CBC, BMP Critical care medicine will continue to follow while patient remains in the CVICU.
--- NOTE | 2018-05-05 21:29 | MB ---
cc: Moreno Howard MD,Alvaro Shipman,Jalen Weber MD DATE: 05/05/2018 HISTORY OF PRESENT ILLNESS: Mrs. Retana is a 68-year-old female with history of COPD, coronary artery disease, aortic stenosis, status post transaortic valve replacement, history of peritoneal bleeding over 24 hours, intermittent AV block. I was consulted for evaluation and management. The chart was reviewed. The patient was evaluated. ALLERGIES: 1. GADOBENIC ACID. 2. . 3. TORADOL. 4. . SOCIAL HISTORY: Negative for smoking and drinking. FAMILY HISTORY: Noncontributory to her current medical condition. MEDICATIONS: 1. Amlodipine 10 mg a day. 2. Coreg 25 mg a day. 3. Zyrtec 10 mg a day. 4. Lisinopril 20 mg a day. 5. Melatonin. 6. Singulair 10 mg a day. 7. Protonix 40 mg a day. 8. Primidone 100 mg twice a day. 9. Seroquel 400 mg twice a day. 9. Atorvastatin 40 mg a day. 10. Magnesium. 11. Multivitamin. 12. Plavix and aspirin also. REVIEW OF SYSTEMS: She is feeling better. No chest pain, no chest discomfort. Some abdominal pain, but no fever. PHYSICAL EXAMINATION: GENERAL: Alert, fully oriented. VITAL SIGNS: Blood pressure on evaluation this morning was 142/57, pulse 72, respiratory rate 18. LUNGS: Ventilated. CARDIOVASCULAR: S1, S2. No gallop. ABDOMEN: Soft. No mass. Some pain on pelvic palpation. EXTREMITIES: No edema. LABORATORY DATA: Electrocardiogram: Telemetry shows sinus rhythm. Subsequent 12-lead electrocardiogram at baseline shows sinus rhythm. No significant ST and T-wave changes. Post-CABG showed, sinus with left bundle branch block. LABORATORY DATA: Hemoglobin 8.7. White blood cell 10.8. Potassium is 4.8, creatinine 0.78. ASSESSMENT AND RECOMMENDATIONS: Mrs. Retana is status post transaortic valve replacement. She has intermittent left bundle branch block. This is a sign of high grade AV block. I had a long conversation with the patient and Dr. Shipman. The patient went into tachycardia yesterday. Also, a stent in the right iliac artery as well as at the right common femoral artery Angio-Seal. The patient is doing better. Hemoglobin is being monitored. The patient is going to need most likely an electrophysiology study. I discussed the case extensively with Dr. Shipman. Because the patient just undergone all these procedures and there is a history of peritoneal bleeding, I will wait until Wednesday for electrophysiology study. I discussed the case with the patient. I will follow the patient during hospitalization. MD YUN Wood/everardo/ , 06:51 PM , 07:01 PM
[2018-05-05] MEDS: Umeclindinium 62.5 MCG/Vilanterol 25 MCG Inhaler INH SCH (21:46)
[2018-05-05] MEDS: Ferrous Sulfate 325 MG Tablet PO SCH (21:47)
[2018-05-05] MEDS: Montelukast 10 MG Tablet PO SCH (21:47)
[2018-05-05] MEDS: Sodium Chloride 0.9% 2 ML Flush BID IV.FLUSH SCH (21:49)
[2018-05-06 04:45] LABS: Mean Corpuscular HGB Conc 33.8 % (32.0-36.0); Mean Corpuscular Hemoglobin 29.8 pg (27.0-34.0); Mean Corpuscular Volume 88.2 fL (80.0-100.0); Mean Platelet Volume 6.9 fL (7.0-11.0); Platelet Count 130 th/mm3 (150-450); Red Blood Count 1.93 mil/mm3 (4.00-5.30); Red Cell Distribution Width 14.9 % (11.6-17.2); White Blood Count 5.8 th/mm3 (4.0-11.0)
[2018-05-06 04:52] LABS: Hemoglobin 5.8 gm/dL (11.6-15.3)
[2018-05-06 05:08] LABS: Carbon Dioxide 29.8 meq/L (21.0-32.0); Magnesium 2.1 mg/dL (1.5-2.5); Phosphorus 2.7 mg/dL (2.5-4.9); Potassium 3.9 meq/L (3.5-5.1)
[2018-05-06 05:16] LABS: Albumin 2.8 g/dL (3.4-5.0)
[2018-05-06] MEDS: Sod Chloride 0.9% Inj 1,000 ML IV.CONT SCH (06:39)
--- NOTE | 2018-05-06 07:13 | P.PNVS ---
Subjective Post Op Day #: 2 Procedure: R iliac stent for RP hemorrhage Subjective/Hospital Course: looks good clinically no additional back, abdominal pain Hct dropped this morning pt notes she recd PRBC preTAVR as well no nausea Objective Vital Signs / I&O: Vital Signs 05/05/18 08:00 05/05/18 08:33 05/05/18 08:58 Temperature Pulse Rate Respiratory Rate 14 Blood Pressure Pulse Oximetry 99 99 05/05/18 11:00 05/05/18 15:00 05/05/18 18:18 Temperature 98.4 F 98.5 F Pulse Rate 72 81 Respiratory Rate 15 17 15 Blood Pressure 143/57 H 122/62 Pulse Oximetry 99 97 05/05/18 19:00 05/05/18 20:00 05/05/18 21:00 Temperature 98.2 F Pulse Rate 85 Respiratory Rate 18 Blood Pressure 166/52 H Pulse Oximetry 99 99 100 05/05/18 23:00 05/06/18 03:00 05/06/18 05:24 Temperature 98.5 F 98.2 F 98.1 F Pulse Rate 78 76 81 Respiratory Rate 18 18 16 Blood Pressure 117/49 L 124/47 L 113/64 Pulse Oximetry 99 98 99 05/06/18 05:42 05/06/18 06:10 Temperature 98.3 F 98.3 F Pulse Rate 76 87 Respiratory Rate 16 16 Blood Pressure 121/49 L 110/51 L Pulse Oximetry 99 99 Intake & Output 05/05/18 05/06/18 05/06/18 18:59 06:59 18:59 Intake Total 1545 / 1545 960 / 960 Output Total 1000 / 1000 1200 / 1200 Balance 545 / 545 -240 / -240 Weight 92.5 kg Intake: IV 5 / 5 Oral 1540 / 1540 960 / 960 Intake (Blood Product) Amt 0 / 0 Rbc As-3 Leukoreduced Unit 0 / 0 [id number] Output: Urine 700 / 700 1200 / 1200 Stool 0 / 0 Urine Amount (Catheter) 300 / 300 Indwelling Temp Sensing 300 / 300 Catheter Other: # Voids 2 # Bowel Movements 0 Exam: R flank ok R groin soft palpable R DP Laboratory Results - last 24 hr 05/04/18 05/06/18 05/06/18 10:30 04:00 04:00 WBC 5.8 RBC 1.93 L Hgb 5.8 L* D Hct 17.0 L* MCV 88.2 MCH 29.8 MCHC 33.8 RDW 14.9 Plt Count 130 L D MPV 6.9 L Sodium 132 L Potassium 3.9 D Chloride 96 L Carbon Dioxide 29.8 Anion Gap 6 BUN 14 Creatinine 0.74 Estimated GFR 78 L Random Glucose 115 H Calcium 7.0 L* D Calcium Adj for Albumin 8.0 L Phosphorus 2.7 D Magnesium 2.1 Albumin 2.8 L Blood Type O Positive Antibody Screen Negative MTS Gel Crossmatch See Detail Bld Prod Order Comment Assessment and Plan - Assessment (1) Retroperitoneal bleeding Code(s): R58 - Hemorrhage, not elsewhere classified Status: Acute - Plan POD#2 s/p TAVR and then iliac stent for RP hematoma looks great palpable pulses Hct drop 1. Recheck CBC later today after transfusion; if Hct doesn't respond or if drops again, will need CTA A/P 2. Continue neurovascular checks Discharge Planning: pending Hct stability
--- NOTE | 2018-05-06 08:11 | P.PNCC ---
Subjective Subjective Remarks/Hospital Course: Hospital Course: This is a 68-year-old female with severe aortic stenosis and severe COPD with FEV1 50% of predicted who presents for transcatheter aortic valve replacement. She underwent her transcatheter aortic valve replacement under general anesthesia via common iliac access. The placement of the valve was uncomplicated and intraoperative echocardiogram demonstrated no perivalvular leak and good placement. Immediately postoperatively she was extubated and taken to CVICU where she was acutely hypotensive, unstable with new severe right flank pain. I was present at bedside when the patient arrived to the CVICU. Immediately went down for emergent noncontrasted CT abdomen pelvis which demonstrated large fluid collection in the right retroperitoneum. I spoke directly with Dr. Hadren the on-call vascular surgeon and we brought the patient emergently to the operating room for endovascular femoral stenting. Due to with patient's arousal from anesthesia as well as the critical nature of the acute complaint, complete review of systems is unobtainable. Limited review of systems is positive for right flank pain, negative for headache, negative for chest pain, shortness of breath, nausea, vomiting, sore throat. Subjective: 05/05: clinically doing well after stenting. oob to chair. hgb stable. denies complaints. 05/06: hgb dropped acutely, but agree that patient looks very good this morning. she does have a history of anemia with regular transfusions. also has a history of silent GI bleeding. agree with 2 units prbc. have ordered lasix in between them because overall with significant volume of resuscitation, patient is beginning to appear volume overloaded. agree with rechecking hgb in the afternoon, and if no improvement in hgb, will need repeat imaging. Objective Vital Signs / I&O: Vital Signs 05/05/18 08:33 05/05/18 08:58 05/05/18 11:00 Temperature 36.9 C Pulse Rate 72 Respiratory Rate 14 15 Blood Pressure 143/57 H Pulse Oximetry 99 99 05/05/18 15:00 05/05/18 18:18 05/05/18 19:00 Temperature 36.9 C 36.8 C Pulse Rate 81 85 Respiratory Rate 17 15 18 Blood Pressure 122/62 166/52 H Pulse Oximetry 97 99 05/05/18 20:00 05/05/18 21:00 05/05/18 23:00 Temperature 36.9 C Pulse Rate 78 Respiratory Rate 18 Blood Pressure 117/49 L Pulse Oximetry 99 100 99 05/06/18 03:00 05/06/18 05:24 05/06/18 05:42 Temperature 36.8 C 36.7 C 36.8 C Pulse Rate 76 81 76 Respiratory Rate 18 16 16 Blood Pressure 124/47 L 113/64 121/49 L Pulse Oximetry 98 99 99 05/06/18 06:10 Temperature 36.8 C Pulse Rate 87 Respiratory Rate 16 Blood Pressure 110/51 L Pulse Oximetry 99 Intake & Output 05/05/18 05/06/18 05/06/18 18:59 06:59 18:59 Intake Total 1545 / 1545 960 / 960 250 / 250 Output Total 1000 / 1000 1200 / 1200 Balance 545 / 545 -240 / -240 250 / 250 Weight 92.5 kg Intake: IV 5 / 5 Oral 1540 / 1540 960 / 960 Other 250 / 250 Rbc As-3 Leukoreduced Unit 250 / 250 [id number] Intake (Blood Product) Amt 0 / 0 0 / 0 Rbc As-3 Leukoreduced Unit 0 / 0 0 / 0 [id number] Output: Urine 700 / 700 1200 / 1200 Stool 0 / 0 Urine Amount (Catheter) 300 / 300 Indwelling Temp Sensing 300 / 300 Catheter Other: # Voids 2 # Bowel Movements 0 Result Diagrams: 05/06/18 14:30 05/06/18 04:00 Objective Remarks: GENERAL: Frail elderly female, sitting in bed, no acute distress. HEENT: Normocephalic. Atraumatic. Pupils equal, round, reactive, conjugate. Mucous membranes are moist NECK: Trachea is midline. There is no JVD. CHEST: unlabored. equal chest rise. nc o2. CARDIOVASCULAR: normal rate, regular rhythm. sinus. ABDOMEN: Soft, nontender, nondistended. No guarding. MUSCULOSKELETAL: Right groin with stable hematoma. mild tenderness which is stable. distal LE pulses are Dopplerable. NEUROLOGICAL: RASS 0. awake, alert. follows commands. moves all extremities. no focal deficits. Assessment and Plan - Assessment and Plan Plan: Assessment: 68-year-old female postop day 2 status post transcatheter aortic valve placement comp located by right retroperitoneal bleed and now postop day 2 status post emergent bring back and endovascular stenting for repair of right common femoral artery bleeding. keep in ICU with dropping hct. 2 units prbc. lasix. recheck CBC in afternoon. imaging if needed. if source is not immediately apparent, may be forced to investigate with colonoscopy, but would hold off for now. S/p TAVR 05/04 via groin access - plavix 75mg po daily - frequent neurovascular checks - frequent groin checks - OOB Acute Anemia secondary to acute blood loss superimposed on Chronic microcytic anemia- worsening - transfuse 2 units prbc this AM. - recheck in afternoon - low threshold for re-imaging. - transfuse to keep hgb > 7 Right retroperitoneal hematoma Hemorrhagic shock- resolved - s/p bringback to OR with endovascular stenting 05/04 - now hemodynamically stable - trend H&H - keep hgb > 7 - frequent groin checks - frequent neurovascular checks in the LEs - anticoagulation discussion above - Dr. Harden consulted and following Hypertension - goal sbp < 180 - add back antihypertensives as needed Congestive Heart Failure secondary to valvulopathy - lasix 40mg iv x 1, possibly needing second dose this afternoon. Hyperlipidemia - home statin Bipolar disorder - home neuroleptics History of prior GI bleeding - home PPI severe COPD - nebs - aggressive pulmonary toilet - OOB with PT - wean o2 for goal spo2 > 90% advance diet after flat time SCDs AM CBC, BMP Critical care medicine will continue to follow while patient remains in the CVICU.
[2018-05-06] MEDS: Ferrous Sulfate 325 MG Tablet PO SCH ×2 (08:51→21:00)
[2018-05-06] MEDS: Lisinopril 20 MG Tablet PO SCH (08:51)
[2018-05-06] MEDS: OXcarbazepine 150 MG Tablet PO SCH ×2 (08:52→21:00)
[2018-05-06] MEDS: Primidone 50 MG Tablet PO SCH ×2 (08:53→21:37)
[2018-05-06] MEDS: lamoTRIgine 100 MG Tablet PO SCH ×2 (08:54→21:00)
[2018-05-06] MEDS: Sodium Chloride 0.9% 2 ML Flush BID IV.FLUSH SCH ×2 (09:00→21:01)
--- NOTE | 2018-05-06 09:49 | P.PNCV ---
- Note Subjective/Hospital Course: 68-year-old female with severe aortic stenosis and severe COPD with FEV1 50% of predicted who presents for transcatheter aortic valve replacement. She underwent her transcatheter aortic valve replacement under general anesthesia via common iliac access. The placement of the valve was uncomplicated and intraoperative echocardiogram demonstrated no perivalvular leak and good placement. Immediately postoperatively she was extubated and taken to CVICU where she was acutely hypotensive, unstable with new severe right flank pain. She immediately went down for emergent noncontrasted CT abdomen pelvis which demonstrated large fluid collection in the right retroperitoneum. Dr. Harden the on-call vascular surgeon was consulted and she was brought the patient emergently to the operating room for endovascular femoral stenting. PMH : Anemia (Microcytic anemia consistent with iron deficiency anemia. history of recurrent occult GI bleed. She has extensive GI workup which did not localize the source of bleed. received periodic transfusion and iron infusion, Anxiety, Arthritis, Chronic Obstructive Pulmonary Disease, Colitis, Diverticulitis, Heart Disease Cancer in 2006 procedures : 05/04 TAVR Retroperitoneal hematoma, iliac artery injury after TAVR./ Dr Harden PROCEDURE PERFORMED: 1. Ultrasound-guided access to right common femoral artery. 2. Iliac angiogram. 3. Intravascular ultrasound of common iliac artery and external iliac artery. 4. Stent placement of iliac artery with an 8 x 50 Viabahn. 5. Right common femoral artery Angio-Seal (8-Estonian). echo: 05/05 CONCLUSIONS The left ventricular systolic function is hyperdynamic with an estimated ejection fraction in the range of 65- 70%. Normal left ventricular size. Wall thickness is normal. No regional wall motion abnormalities are present. The aortic valve is not well visualized. No perivalvular leak Aortic valve area is 1.4 cm. Aortic valve mean gradient is 17 mmHg. The pulmonary valve is not well visualized. 05/05 pt doing well , dressing to both groin sites intermittent right flank pain Intermittent intraventricular conduction delay, eval by Dr Howard Will monitor another 24 hours. We will then make a decision on potential loop recorder versus permanent pacemaker Objective: Vital Signs - 24 hr 05/05/18 11:00 05/05/18 15:00 05/05/18 18:18 Temperature 98.4 F 98.5 F Pulse Rate 72 81 Respiratory Rate 15 17 15 Blood Pressure 143/57 H 122/62 Pulse Oximetry 99 97 05/05/18 19:00 05/05/18 20:00 05/05/18 21:00 Temperature 98.2 F Pulse Rate 85 Respiratory Rate 18 Blood Pressure 166/52 H Pulse Oximetry 99 99 100 05/05/18 23:00 05/06/18 03:00 05/06/18 05:24 Temperature 98.5 F 98.2 F 98.1 F Pulse Rate 78 76 81 Respiratory Rate 18 18 16 Blood Pressure 117/49 L 124/47 L 113/64 Pulse Oximetry 99 98 99 05/06/18 05:42 05/06/18 06:10 05/06/18 08:31 Temperature 98.3 F 98.3 F Pulse Rate 76 87 Respiratory Rate 16 16 Blood Pressure 121/49 L 110/51 L Pulse Oximetry 99 99 99 05/06/18 09:31 Temperature 98.3 F Pulse Rate 82 Respiratory Rate 18 Blood Pressure 123/58 L Pulse Oximetry 100 Labs: Laboratory Results - last 12 hr 05/04/18 05/06/18 05/06/18 10:30 04:00 04:00 WBC 5.8 RBC 1.93 L Hgb 5.8 L* D Hct 17.0 L* MCV 88.2 MCH 29.8 MCHC 33.8 RDW 14.9 Plt Count 130 L D MPV 6.9 L Sodium 132 L Potassium 3.9 D Chloride 96 L Carbon Dioxide 29.8 Anion Gap 6 BUN 14 Creatinine 0.74 Estimated GFR 78 L Random Glucose 115 H Calcium 7.0 L* D Calcium Adj for Albumin 8.0 L Phosphorus 2.7 D Magnesium 2.1 Albumin 2.8 L Blood Type O Positive Antibody Screen Negative MTS Gel Crossmatch See Detail Bld Prod Order Comment Result Diagrams: 05/06/18 04:00 05/06/18 04:00 - Plan (3) S/P TAVR (transcatheter aortic valve replacement) Plan: on ASA , plavix post retro peritoneal hemorrhage HGB 8.1, on iron post Stent placement of iliac artery with an 8 x 50 Viabahn. post intermittent intraventricular conduction delay eval for another 24 hrs to eval need for LOOP recorder vs permanent pacer / possible EP study on Wednesday HGB 8.1> 5.8 for 2 units PRBC / rechck HGB this afternoon if no improvement will need CT A/P leave in CVICU discussed with CCM note pt has hx of GI bleed, chronic anemia received one unit of PRBC prior to surgery
[2018-05-06 15:01] LABS: Hematocrit 23.8 % (35.0-46.0); Hemoglobin 8.3 gm/dL (11.6-15.3); Mean Corpuscular Hemoglobin 30.5 pg (27.0-34.0); Mean Corpuscular Volume 87.2 fL (80.0-100.0); Platelet Count 127 th/mm3 (150-450); Red Blood Count 2.73 mil/mm3 (4.00-5.30); Red Cell Distribution Width 15.6 % (11.6-17.2); White Blood Count 7.5 th/mm3 (4.0-11.0)
[2018-05-06 15:25] LABS: Calcium 7.5 mg/dL (8.5-10.1); Carbon Dioxide 32.3 meq/L (21.0-32.0); Potassium 3.7 meq/L (3.5-5.1)
[2018-05-06] MEDS: hydrALAZINE HCl Inj 20 MG/ML Vial IV.PUSH PRN ×2 (18:47→20:00)
[2018-05-06] MEDS: Melatonin 5 MG Tablet PO PRN (20:59)
[2018-05-06] MEDS: Montelukast 10 MG Tablet PO SCH (20:59)
[2018-05-06] MEDS: Umeclindinium 62.5 MCG/Vilanterol 25 MCG Inhaler INH SCH (22:38)
[2018-05-07 05:27] LABS: Hematocrit 22.2 % (35.0-46.0); Hemoglobin 7.7 gm/dL (11.6-15.3); Mean Corpuscular HGB Conc 34.7 % (32.0-36.0); Mean Corpuscular Hemoglobin 30.2 pg (27.0-34.0); Mean Corpuscular Volume 87.1 fL (80.0-100.0); Mean Platelet Volume 7.2 fL (7.0-11.0); Platelet Count 124 th/mm3 (150-450); Red Blood Count 2.55 mil/mm3 (4.00-5.30); Red Cell Distribution Width 15.7 % (11.6-17.2); White Blood Count 6.1 th/mm3 (4.0-11.0)
[2018-05-07 05:54] LABS: Calcium 7.9 mg/dL (8.5-10.1); Carbon Dioxide 31.7 meq/L (21.0-32.0); Magnesium 2.1 mg/dL (1.5-2.5); Phosphorus 3.2 mg/dL (2.5-4.9); Potassium 3.8 meq/L (3.5-5.1)
--- NOTE | 2018-05-07 07:17 | P.PNVS ---
Subjective Post Op Day #: 3 Procedure: R iliac stent for RP hemorrhage Subjective/Hospital Course: continues to look well no abdominal or flank pain Objective Vital Signs / I&O: Vital Signs 05/06/18 08:00 05/06/18 08:31 05/06/18 09:31 Temperature 98.3 F Pulse Rate 82 Respiratory Rate 18 Blood Pressure 123/58 L Pulse Oximetry 99 99 100 05/06/18 11:00 05/06/18 12:24 05/06/18 15:00 Temperature 98.4 F 98.6 F Pulse Rate 90 90 81 Respiratory Rate 18 18 18 Blood Pressure 124/47 L 177/89 H Pulse Oximetry 100 99 100 05/06/18 21:35 Temperature Pulse Rate Respiratory Rate Blood Pressure Pulse Oximetry 99 Intake & Output 05/06/18 05/07/18 05/07/18 18:59 06:59 18:59 Intake Total 1200 / 1200 Output Total 1925 / 192 Balance -725 / -725 Intake: Oral 480 / 480 Other 320 / 320 Rbc As-3 Leukoreduced Unit 70 / 70 [id number] Rbc As-3 Leukoreduced Unit 250 / 250 [id number] Intake (Blood Product) Amt 400 / 400 Rbc As-3 Leukoreduced Unit 400 / 400 [id number] Rbc As-3 Leukoreduced Unit 0 / 0 [id number] Output: Urine 1924 Exam: R groin soft, flank ok palpable DP Laboratory Results - last 24 hr 05/04/18 05/06/18 05/06/18 10:30 14:30 14:30 WBC 7.5 RBC 2.73 L Hgb 8.3 L D Hct 23.8 L MCV 87.2 MCH 30.5 MCHC 35.0 RDW 15.6 Plt Count 127 L MPV 7.0 Sodium 135 L Potassium 3.7 Chloride 97 L Carbon Dioxide 32.3 H Anion Gap 6 BUN 13 Creatinine 0.94 Estimated GFR 59 L Random Glucose 116 H Calcium 7.5 L Phosphorus Magnesium Blood Type O Positive Antibody Screen Negative MTS Gel Crossmatch See Detail Bld Prod Order Comment 05/07/18 05/07/18 05:05 05:05 WBC 6.1 RBC 2.55 L Hgb 7.7 L Hct 22.2 L MCV 87.1 MCH 30.2 MCHC 34.7 RDW 15.7 Plt Count 124 L MPV 7.2 Sodium 133 L Potassium 3.8 Chloride 97 L Carbon Dioxide 31.7 Anion Gap 4 L BUN 12 Creatinine 0.83 Estimated GFR 68 L Random Glucose 111 H Calcium 7.9 L Phosphorus 3.2 Magnesium 2.1 Blood Type Antibody Screen MTS Gel Crossmatch Bld Prod Order Comment Assessment and Plan - Assessment (1) Retroperitoneal bleeding Code(s): R58 - Hemorrhage, not elsewhere classified Status: Acute - Plan POD#3 s/p TAVR and then iliac stent for RP hematoma looks great palpable pulses Hct drop 24 to 22 1. Recheck CBC tomorrow 2. Continue neurovascular checks 3. Stay in ICU Discharge Planning: pending Hct stability
[2018-05-07] MEDS: lamoTRIgine 100 MG Tablet PO SCH ×2 (08:31→21:40)
[2018-05-07] MEDS: OXcarbazepine 150 MG Tablet PO SCH ×2 (08:31→21:41)
--- NOTE | 2018-05-07 08:37 | P.PNCV ---
- Note Subjective/Hospital Course: 68-year-old female with severe aortic stenosis and severe COPD with FEV1 50% of predicted who presents for transcatheter aortic valve replacement. She underwent her transcatheter aortic valve replacement under general anesthesia via common iliac access. The placement of the valve was uncomplicated and intraoperative echocardiogram demonstrated no perivalvular leak and good placement. Immediately postoperatively she was extubated and taken to CVICU where she was acutely hypotensive, unstable with new severe right flank pain. She immediately went down for emergent noncontrasted CT abdomen pelvis which demonstrated large fluid collection in the right retroperitoneum. Dr. Harden the on-call vascular surgeon was consulted and she was brought the patient emergently to the operating room for endovascular femoral stenting. PMH : Anemia (Microcytic anemia consistent with iron deficiency anemia. history of recurrent occult GI bleed. She has extensive GI workup which did not localize the source of bleed. received periodic transfusion and iron infusion, Anxiety, Arthritis, Chronic Obstructive Pulmonary Disease, Colitis, Diverticulitis, Heart Disease Cancer in 2006 procedures : 05/04 TAVR Retroperitoneal hematoma, iliac artery injury after TAVR./ Dr Harden PROCEDURE PERFORMED: 1. Ultrasound-guided access to right common femoral artery. 2. Iliac angiogram. 3. Intravascular ultrasound of common iliac artery and external iliac artery. 4. Stent placement of iliac artery with an 8 x 50 Viabahn. 5. Right common femoral artery Angio-Seal (8-Macedonian). echo: 05/05 CONCLUSIONS The left ventricular systolic function is hyperdynamic with an estimated ejection fraction in the range of 65- 70%. Normal left ventricular size. Wall thickness is normal. No regional wall motion abnormalities are present. The aortic valve is not well visualized. No perivalvular leak Aortic valve area is 1.4 cm. Aortic valve mean gradient is 17 mmHg. The pulmonary valve is not well visualized. 05/05 pt doing well , dressing to both groin sites intermittent right flank pain Intermittent intraventricular conduction delay, eval by Dr Howard Will monitor another 24 hours. We will then make a decision on potential loop recorder versus permanent pacemaker 05/07 Clinical and hemodynamic is stable Monitoring CBC Continue with incentive spirometry Objective: Vital Signs - 24 hr 05/06/18 09:31 05/06/18 11:00 05/06/18 12:24 Temperature 98.3 F 98.4 F Pulse Rate 82 90 90 Respiratory Rate 18 18 18 Blood Pressure 123/58 L 124/47 L 177/89 H Pulse Oximetry 100 100 99 05/06/18 15:00 05/06/18 21:35 Temperature 98.6 F Pulse Rate 81 Respiratory Rate 18 Blood Pressure Pulse Oximetry 100 99 Labs: Laboratory Results - last 12 hr 05/07/18 05/07/18 05:05 05:05 WBC 6.1 RBC 2.55 L Hgb 7.7 L Hct 22.2 L MCV 87.1 MCH 30.2 MCHC 34.7 RDW 15.7 Plt Count 124 L MPV 7.2 Sodium 133 L Potassium 3.8 Chloride 97 L Carbon Dioxide 31.7 Anion Gap 4 L BUN 12 Creatinine 0.83 Estimated GFR 68 L Random Glucose 111 H Calcium 7.9 L Phosphorus 3.2 Magnesium 2.1 Result Diagrams: 05/07/18 05:05 05/07/18 05:05 - Plan (3) S/P TAVR (transcatheter aortic valve replacement) Plan: on ASA , plavix post retro peritoneal hemorrhage HGB 8.1, on iron post Stent placement of iliac artery with an 8 x 50 Viabahn. post intermittent intraventricular conduction delay eval for another 24 hrs to eval need for LOOP recorder vs permanent pacer / possible EP study on Wednesday HGB 8.1> 5.8 for 2 units PRBC / rechck HGB this afternoon if no improvement will need CT A/P leave in CVICU discussed with CCM note pt has hx of GI bleed, chronic anemia received one unit of PRBC prior to surgery
[2018-05-07] MEDS: Sodium Chloride 0.9% 2 ML Flush BID IV.FLUSH SCH ×2 (09:39→21:54)
[2018-05-07] MEDS: Ferrous Sulfate 325 MG Tablet PO SCH ×2 (09:42→21:41)
[2018-05-07] MEDS: Primidone 50 MG Tablet PO SCH ×2 (09:42→21:40)
[2018-05-07] MEDS: Lisinopril 20 MG Tablet PO SCH (12:57)
[2018-05-07 13:17] LABS: Hematocrit 23.4 % (35.0-46.0); Hemoglobin 7.8 gm/dL (11.6-15.3)
--- NOTE | 2018-05-07 16:04 | P.PNCC ---
Subjective Subjective Remarks/Hospital Course: Hospital Course: This is a 68-year-old female with severe aortic stenosis and severe COPD with FEV1 50% of predicted who presents for transcatheter aortic valve replacement. She underwent her transcatheter aortic valve replacement under general anesthesia via common iliac access. The placement of the valve was uncomplicated and intraoperative echocardiogram demonstrated no perivalvular leak and good placement. Immediately postoperatively she was extubated and taken to CVICU where she was acutely hypotensive, unstable with new severe right flank pain. I was present at bedside when the patient arrived to the CVICU. Immediately went down for emergent noncontrasted CT abdomen pelvis which demonstrated large fluid collection in the right retroperitoneum. I spoke directly with Dr. Harden the on-call vascular surgeon and we brought the patient emergently to the operating room for endovascular femoral stenting. Due to with patient's arousal from anesthesia as well as the critical nature of the acute complaint, complete review of systems is unobtainable. Limited review of systems is positive for right flank pain, negative for headache, negative for chest pain, shortness of breath, nausea, vomiting, sore throat. Subjective: 05/05: clinically doing well after stenting. oob to chair. hgb stable. denies complaints. 05/06: hgb dropped acutely, but agree that patient looks very good this morning. she does have a history of anemia with regular transfusions. also has a history of silent GI bleeding. agree with 2 units prbc. have ordered lasix in between them because overall with significant volume of resuscitation, patient is beginning to appear volume overloaded. agree with rechecking hgb in the afternoon, and if no improvement in hgb, will need repeat imaging. 05/07: hgb dropped 1 point, but clinically appears well. groins stable. denies complaints. ROS negative. Objective Vital Signs / I&O: Vital Signs 05/06/18 20:00 05/06/18 21:35 05/07/18 00:00 Temperature 36.9 C Pulse Rate 93 H 86 Respiratory Rate 20 18 Blood Pressure 181/58 H 123/34 L Pulse Oximetry 99 99 97 05/07/18 04:00 05/07/18 07:00 05/07/18 08:00 Temperature 37.3 C Pulse Rate 88 91 H Respiratory Rate 18 16 Blood Pressure 109/40 L 119/68 Pulse Oximetry 94 L 99 99 05/07/18 11:00 05/07/18 12:00 Temperature 37.8 C H Pulse Rate 78 Respiratory Rate 16 Blood Pressure Pulse Oximetry 99 99 Intake & Output 05/06/18 05/07/18 05/07/18 18:59 06:59 18:59 Intake Total 1200 / 1200 240 / 240 Output Total 1925 / 1925 1600 / 1600 Balance -725 / -725 -1360 / -1360 Intake: Oral 480 / 480 240 / 240 Other 320 / 320 Rbc As-3 Leukoreduced Unit 70 / 70 [id number] Rbc As-3 Leukoreduced Unit 250 / 250 [id number] Intake (Blood Product) Amt 400 / 400 Rbc As-3 Leukoreduced Unit 400 / 400 [id number] Rbc As-3 Leukoreduced Unit 0 / 0 [id number] Output: Urine 1925 / 1925 1600 / 1600 Other: # Bowel Movements 0 Result Diagrams: 05/07/18 12:30 05/07/18 05:05 Objective Remarks: GENERAL: Frail elderly female, sitting in bed, no acute distress. HEENT: Normocephalic. Atraumatic. Pupils equal, round, reactive, conjugate. Mucous membranes are moist NECK: Trachea is midline. There is no JVD. CHEST: unlabored. equal chest rise. nc o2. CARDIOVASCULAR: normal rate, regular rhythm. sinus. ABDOMEN: Soft, nontender, nondistended. No guarding. MUSCULOSKELETAL: Right groin with stable hematoma. mild tenderness which is stable. distal LE pulses are Dopplerable. NEUROLOGICAL: RASS 0. awake, alert. follows commands. moves all extremities. no focal deficits. Assessment and Plan - Assessment and Plan Plan: Assessment: 68-year-old female postop day 3 status post transcatheter aortic valve placement comp located by right retroperitoneal bleed and now postop day 3 status post emergent bring back and endovascular stenting for repair of right common femoral artery bleeding. keep in ICU with dropping hct. will not repeat CT scan as she clinically is quite stable. repeat H&H in the afternoon and again in the AM. S/p TAVR 05/04 via groin access - plavix 75mg po daily - frequent neurovascular checks - frequent groin checks - OOB Acute Anemia secondary to acute blood loss superimposed on Chronic microcytic anemia- stable - recheck in afternoon - transfuse to keep hgb > 7 - daily cbc Right retroperitoneal hematoma Hemorrhagic shock- resolved - s/p bringback to OR with endovascular stenting 05/04 - now hemodynamically stable - trend H&H - keep hgb > 7 - frequent groin checks - frequent neurovascular checks in the LEs - anticoagulation discussion above - Dr. Harden consulted and following Hypertension - goal sbp < 180 - add back antihypertensives as needed Congestive Heart Failure secondary to valvulopathy - hold off on additional lasix today. Hyperlipidemia - home statin Bipolar disorder - home neuroleptics History of prior GI bleeding - home PPI severe COPD - nebs - aggressive pulmonary toilet - OOB with PT - wean o2 for goal spo2 > 90% advance diet as tolerated. SCDs AM CBC, BMP Critical care medicine will continue to follow while patient remains in the CVICU.
[2018-05-07] MEDS: Polyethylene Glycol 3350 17 GM Packet PO PRN ×2 (21:40→21:46)
[2018-05-07] MEDS: Melatonin 5 MG Tablet PO PRN (21:41)
[2018-05-07] MEDS: Montelukast 10 MG Tablet PO SCH (21:41)
[2018-05-07] MEDS: Umeclindinium 62.5 MCG/Vilanterol 25 MCG Inhaler INH SCH (21:47)
[2018-05-08 04:32] LABS: Hematocrit 22.3 % (35.0-46.0); Hemoglobin 7.6 gm/dL (11.6-15.3); Mean Corpuscular HGB Conc 33.9 % (32.0-36.0); Mean Corpuscular Hemoglobin 30.2 pg (27.0-34.0); Mean Platelet Volume 7.3 fL (7.0-11.0); Platelet Count 124 th/mm3 (150-450); Red Blood Count 2.51 mil/mm3 (4.00-5.30); Red Cell Distribution Width 15.2 % (11.6-17.2); White Blood Count 5.7 th/mm3 (4.0-11.0)
[2018-05-08 05:00] LABS: Calcium 7.7 mg/dL (8.5-10.1); Carbon Dioxide 31.6 meq/L (21.0-32.0); Magnesium 2.2 mg/dL (1.5-2.5)
--- NOTE | 2018-05-08 08:07 | P.PNVS ---
Subjective Post Op Day #: 4 Procedure: R iliac stent for RP hemorrhage Subjective/Hospital Course: Looks good + BM today for first time in a week - per pt nonbloody but does have h/o colitis according to her no abdominal or flank pain Objective Vital Signs / I&O: Vital Signs 05/07/18 11:00 05/07/18 12:00 05/07/18 15:00 Temperature 100.1 F H 98.1 F Pulse Rate 78 82 Respiratory Rate 16 16 Blood Pressure 179/73 H Pulse Oximetry 99 99 94 L 05/07/18 16:00 05/07/18 20:00 05/07/18 20:40 Temperature 98.4 F Pulse Rate 83 Respiratory Rate 18 Blood Pressure 179/76 H Pulse Oximetry 94 L 93 L 96 05/08/18 00:00 05/08/18 04:00 Temperature 98.8 F 98.8 F Pulse Rate 70 70 Respiratory Rate 18 18 Blood Pressure 86/43 L 120/59 L Pulse Oximetry 94 L 93 L Intake & Output 05/07/18 05/08/18 05/08/18 18:59 06:59 18:59 Intake Total 800 / 800 720 / 720 Output Total 1000 / 1000 900 / 900 Balance -200 / -200 -180 / -180 Weight 90.5 kg Intake: Oral 800 / 800 720 / 720 Output: Urine 1000 / 1000 900 / 900 Other: Date of Last Bowel Movement 05/08/18 # Bowel Movements 0 2 Exam: groin soft Laboratory Results - last 24 hr 05/07/18 05/08/18 05/08/18 12:30 04:03 04:03 WBC 5.7 RBC 2.51 L Hgb 7.8 L 7.6 L Hct 23.4 L 22.3 L MCV 89.0 MCH 30.2 MCHC 33.9 RDW 15.2 Plt Count 124 L MPV 7.3 Sodium 134 L Potassium 4.0 Chloride 96 L Carbon Dioxide 31.6 Anion Gap 6 BUN 15 Creatinine 1.10 H Estimated GFR 49 L Random Glucose 106 Calcium 7.7 L Phosphorus 4.0 Magnesium 2.2 Assessment and Plan - Assessment (1) Retroperitoneal bleeding Code(s): R58 - Hemorrhage, not elsewhere classified Status: Acute - Plan POD#4 s/p TAVR and then iliac stent for RP hematoma Hct stable x48h colonoscopy not unreasonable given history needs antiplatelet therapy can f/u 1m with ABIs Discharge Planning: pending Hct stability
[2018-05-08] MEDS: Primidone 50 MG Tablet PO SCH ×2 (08:10→22:21)
[2018-05-08] MEDS: OXcarbazepine 150 MG Tablet PO SCH ×2 (08:11→22:21)
[2018-05-08] MEDS: Ferrous Sulfate 325 MG Tablet PO SCH ×2 (08:11→22:19)
[2018-05-08] MEDS: Lisinopril 20 MG Tablet PO SCH (08:11)
[2018-05-08] MEDS: Sodium Chloride 0.9% 2 ML Flush BID IV.FLUSH SCH ×2 (08:12→22:20)
[2018-05-08] MEDS: Polyethylene Glycol 3350 17 GM Packet PO PRN (08:20)
[2018-05-08] MEDS: lamoTRIgine 100 MG Tablet PO SCH ×2 (08:20→22:19)
--- NOTE | 2018-05-08 08:21 | P.PNCV ---
- Note Subjective/Hospital Course: 68-year-old female with severe aortic stenosis and severe COPD with FEV1 50% of predicted who presents for transcatheter aortic valve replacement. She underwent her transcatheter aortic valve replacement under general anesthesia via common iliac access. The placement of the valve was uncomplicated and intraoperative echocardiogram demonstrated no perivalvular leak and good placement. Immediately postoperatively she was extubated and taken to CVICU where she was acutely hypotensive, unstable with new severe right flank pain. She immediately went down for emergent noncontrasted CT abdomen pelvis which demonstrated large fluid collection in the right retroperitoneum. Dr. Harden the on-call vascular surgeon was consulted and she was brought the patient emergently to the operating room for endovascular femoral stenting. PMH : Anemia (Microcytic anemia consistent with iron deficiency anemia. history of recurrent occult GI bleed. She has extensive GI workup which did not localize the source of bleed. received periodic transfusion and iron infusion, Anxiety, Arthritis, Chronic Obstructive Pulmonary Disease, Colitis, Diverticulitis, Heart Disease Cancer in 2006 procedures : 05/04 TAVR Retroperitoneal hematoma, iliac artery injury after TAVR./ Dr Harden PROCEDURE PERFORMED: 1. Ultrasound-guided access to right common femoral artery. 2. Iliac angiogram. 3. Intravascular ultrasound of common iliac artery and external iliac artery. 4. Stent placement of iliac artery with an 8 x 50 Viabahn. 5. Right common femoral artery Angio-Seal (8-Swedish). echo: 05/05 CONCLUSIONS The left ventricular systolic function is hyperdynamic with an estimated ejection fraction in the range of 65- 70%. Normal left ventricular size. Wall thickness is normal. No regional wall motion abnormalities are present. The aortic valve is not well visualized. No perivalvular leak Aortic valve area is 1.4 cm. Aortic valve mean gradient is 17 mmHg. The pulmonary valve is not well visualized. 05/05 pt doing well , dressing to both groin sites intermittent right flank pain Intermittent intraventricular conduction delay, eval by Dr Howard Will monitor another 24 hours. We will then make a decision on potential loop recorder versus permanent pacemaker 05/07 Clinical and hemodynamic is stable Monitoring CBC Continue with incentive spirometry 05/08 Doing well On aspirin and Plavix for her bioprosthetic valve Transfer to stepdown when okay with others Objective: Vital Signs - 24 hr 05/07/18 11:00 05/07/18 12:00 05/07/18 15:00 Temperature 100.1 F H 98.1 F Pulse Rate 78 82 Respiratory Rate 16 16 Blood Pressure 179/73 H Pulse Oximetry 99 99 94 L 05/07/18 16:00 05/07/18 20:00 05/07/18 20:40 Temperature 98.4 F Pulse Rate 83 Respiratory Rate 18 Blood Pressure 179/76 H Pulse Oximetry 94 L 93 L 96 05/08/18 00:00 05/08/18 04:00 Temperature 98.8 F 98.8 F Pulse Rate 70 70 Respiratory Rate 18 18 Blood Pressure 86/43 L 120/59 L Pulse Oximetry 94 L 93 L Labs: Laboratory Results - last 12 hr 05/08/18 05/08/18 04:03 04:03 WBC 5.7 RBC 2.51 L Hgb 7.6 L Hct 22.3 L MCV 89.0 MCH 30.2 MCHC 33.9 RDW 15.2 Plt Count 124 L MPV 7.3 Sodium 134 L Potassium 4.0 Chloride 96 L Carbon Dioxide 31.6 Anion Gap 6 BUN 15 Creatinine 1.10 H Estimated GFR 49 L Random Glucose 106 Calcium 7.7 L Phosphorus 4.0 Magnesium 2.2 Result Diagrams: 05/08/18 04:03 05/08/18 04:03 - Plan (3) S/P TAVR (transcatheter aortic valve replacement) Plan: on ASA , plavix post retro peritoneal hemorrhage HGB 8.1, on iron post Stent placement of iliac artery with an 8 x 50 Viabahn. post intermittent intraventricular conduction delay eval for another 24 hrs to eval need for LOOP recorder vs permanent pacer / possible EP study on Wednesday HGB 8.1> 5.8 for 2 units PRBC / rechck HGB this afternoon if no improvement will need CT A/P leave in CVICU discussed with CCM note pt has hx of GI bleed, chronic anemia received one unit of PRBC prior to surgery
--- NOTE | 2018-05-08 13:21 | P.PNCC ---
Subjective Subjective Remarks/Hospital Course: Hospital Course: This is a 68-year-old female with severe aortic stenosis and severe COPD with FEV1 50% of predicted who presents for transcatheter aortic valve replacement. She underwent her transcatheter aortic valve replacement under general anesthesia via common iliac access. The placement of the valve was uncomplicated and intraoperative echocardiogram demonstrated no perivalvular leak and good placement. Immediately postoperatively she was extubated and taken to CVICU where she was acutely hypotensive, unstable with new severe right flank pain. I was present at bedside when the patient arrived to the CVICU. Immediately went down for emergent noncontrasted CT abdomen pelvis which demonstrated large fluid collection in the right retroperitoneum. I spoke directly with Dr. Harden the on-call vascular surgeon and we brought the patient emergently to the operating room for endovascular femoral stenting. Due to with patient's arousal from anesthesia as well as the critical nature of the acute complaint, complete review of systems is unobtainable. Limited review of systems is positive for right flank pain, negative for headache, negative for chest pain, shortness of breath, nausea, vomiting, sore throat. Subjective: 05/05: clinically doing well after stenting. oob to chair. hgb stable. denies complaints. 05/06: hgb dropped acutely, but agree that patient looks very good this morning. she does have a history of anemia with regular transfusions. also has a history of silent GI bleeding. agree with 2 units prbc. have ordered lasix in between them because overall with significant volume of resuscitation, patient is beginning to appear volume overloaded. agree with rechecking hgb in the afternoon, and if no improvement in hgb, will need repeat imaging. 05/07: hgb dropped 1 point, but clinically appears well. groins stable. denies complaints. ROS negative. 05/08: hgb stable, but remains low. borderline hypotension overnight. dark tarry bowel movement today which was Guiac+. has history of occult GI bleeding: will need to have GI evaluate. Objective Vital Signs / I&O: Vital Signs 05/07/18 15:00 05/07/18 16:00 05/07/18 20:00 Temperature 36.7 C 36.9 C Pulse Rate 82 83 Respiratory Rate 16 18 Blood Pressure 179/73 H 179/76 H Pulse Oximetry 94 L 94 L 93 L 05/07/18 20:40 05/08/18 00:00 05/08/18 04:00 Temperature 37.1 C 37.1 C Pulse Rate 70 70 Respiratory Rate 18 18 Blood Pressure 86/43 L 120/59 L Pulse Oximetry 96 94 L 93 L 05/08/18 07:00 05/08/18 08:59 05/08/18 09:50 Temperature 36.8 C Pulse Rate 81 Respiratory Rate 18 18 Blood Pressure 125/56 L Pulse Oximetry 99 99 Intake & Output 05/07/18 05/08/18 05/08/18 18:59 06:59 18:59 Intake Total 800 / 800 720 / 720 Output Total 1000 / 1000 900 / 900 Balance -200 / -200 -180 / -180 Weight 90.5 kg Intake: Oral 800 / 800 720 / 720 Output: Urine 1000 / 1000 900 / 900 Other: Date of Last Bowel Movement 05/08/18 05/08/18 # Bowel Movements 0 2 Result Diagrams: 05/08/18 04:03 05/08/18 04:03 Objective Remarks: GENERAL: Frail elderly female, sitting in bed, no acute distress. HEENT: Normocephalic. Atraumatic. Pupils equal, round, reactive, conjugate. Mucous membranes are moist NECK: Trachea is midline. There is no JVD. CHEST: unlabored. equal chest rise. nc o2. CARDIOVASCULAR: normal rate, regular rhythm. sinus. ABDOMEN: Soft, nontender, nondistended. No guarding. MUSCULOSKELETAL: Right groin with stable hematoma. mild tenderness which is stable. distal LE pulses are Dopplerable. NEUROLOGICAL: RASS 0. awake, alert. follows commands. moves all extremities. no focal deficits. Assessment and Plan - Assessment and Plan Plan: Assessment: 68-year-old female postop day 4 status post transcatheter aortic valve placement comp located by right retroperitoneal bleed and now postop day 4 status post emergent bring back and endovascular stenting for repair of right common femoral artery bleeding. keep in ICU at least 1 more day. f/u AM cbc. would appreciate GI seeing patient-- would feel more comfortable with thorough GI work-up while inpatient before discharge to the outpatient setting. S/p TAVR 05/04 via groin access - plavix 75mg po daily - frequent neurovascular checks - frequent groin checks - OOB Acute Anemia secondary to acute blood loss superimposed on Chronic microcytic anemia- stable - transfuse to keep hgb > 7 - daily cbc Right retroperitoneal hematoma Hemorrhagic shock- resolved - s/p bringback to OR with endovascular stenting 05/04 - now hemodynamically stable - trend H&H - keep hgb > 7 - frequent groin checks - frequent neurovascular checks in the LEs - anticoagulation discussion above - Dr. Harden consulted and following Hypertension - goal sbp < 180 - add back antihypertensives as needed Congestive Heart Failure secondary to valvulopathy - hold off on additional lasix today. Hyperlipidemia - home statin Bipolar disorder - home neuroleptics History of prior GI bleeding ?current GI bleed - increase to iv BID PPI. - consult GI - would prefer thorough GI work-up while inpatient before we send her home. - bowel movement today which was dark and tarry- GUIAC+. severe COPD - nebs - aggressive pulmonary toilet - OOB with PT - wean o2 for goal spo2 > 90% advance diet as tolerated. SCDs AM CBC, BMP Critical care medicine will continue to follow while patient remains in the CVICU.
[2018-05-08] MEDS ORDERED: Pantoprazole Inj 40 MG Vial IV.PUSH SCH (14:00)
[2018-05-08] MEDS: Simethicone 80 MG Chew Tablet PO PRN ×2 (16:48→22:21)
[2018-05-08] MEDS: Montelukast 10 MG Tablet PO SCH (22:21)
[2018-05-08] MEDS: Melatonin 5 MG Tablet PO PRN (22:21)
[2018-05-08] MEDS: Umeclindinium 62.5 MCG/Vilanterol 25 MCG Inhaler INH SCH (22:38)
[2018-05-09 05:15] LABS: Hematocrit 23.8 % (35.0-46.0); Hemoglobin 8.1 gm/dL (11.6-15.3); Mean Corpuscular Hemoglobin 30.1 pg (27.0-34.0); Mean Corpuscular Volume 88.7 fL (80.0-100.0); Mean Platelet Volume 7.5 fL (7.0-11.0); Platelet Count 146 th/mm3 (150-450); Red Blood Count 2.69 mil/mm3 (4.00-5.30); Red Cell Distribution Width 15.1 % (11.6-17.2); White Blood Count 5.3 th/mm3 (4.0-11.0)
[2018-05-09 05:31] LABS: Calcium 7.9 mg/dL (8.5-10.1); Magnesium 2.1 mg/dL (1.5-2.5)
[2018-05-09 05:34] LABS: Phosphorus 3.9 mg/dL (2.5-4.9)
[2018-05-09] MEDS: Pantoprazole Inj 40 MG Vial IV.PUSH SCH ×2 (06:35→17:20)
[2018-05-09] MEDS: Primidone 50 MG Tablet PO SCH ×2 (08:44→20:13)
[2018-05-09] MEDS: OXcarbazepine 150 MG Tablet PO SCH ×2 (08:45→20:14)
[2018-05-09] MEDS: lamoTRIgine 100 MG Tablet PO SCH ×2 (08:45→20:13)
[2018-05-09] MEDS: Lisinopril 20 MG Tablet PO SCH (08:45)
[2018-05-09] MEDS: Ferrous Sulfate 325 MG Tablet PO SCH ×2 (08:45→20:13)
[2018-05-09] MEDS: Sodium Chloride 0.9% 2 ML Flush BID IV.FLUSH SCH (08:46)
--- NOTE | 2018-05-09 09:19 | P.PNCC ---
Subjective Subjective Remarks/Hospital Course: Hospital Course: This is a 68-year-old female with severe aortic stenosis and severe COPD with FEV1 50% of predicted who presents for transcatheter aortic valve replacement. She underwent her transcatheter aortic valve replacement under general anesthesia via common iliac access. The placement of the valve was uncomplicated and intraoperative echocardiogram demonstrated no perivalvular leak and good placement. Immediately postoperatively she was extubated and taken to CVICU where she was acutely hypotensive, unstable with new severe right flank pain. I was present at bedside when the patient arrived to the CVICU. Immediately went down for emergent noncontrasted CT abdomen pelvis which demonstrated large fluid collection in the right retroperitoneum. I spoke directly with Dr. Harden the on-call vascular surgeon and we brought the patient emergently to the operating room for endovascular femoral stenting. Due to with patient's arousal from anesthesia as well as the critical nature of the acute complaint, complete review of systems is unobtainable. Limited review of systems is positive for right flank pain, negative for headache, negative for chest pain, shortness of breath, nausea, vomiting, sore throat. Subjective: 05/05: clinically doing well after stenting. oob to chair. hgb stable. denies complaints. 05/06: hgb dropped acutely, but agree that patient looks very good this morning. she does have a history of anemia with regular transfusions. also has a history of silent GI bleeding. agree with 2 units prbc. have ordered lasix in between them because overall with significant volume of resuscitation, patient is beginning to appear volume overloaded. agree with rechecking hgb in the afternoon, and if no improvement in hgb, will need repeat imaging. 05/07: hgb dropped 1 point, but clinically appears well. groins stable. denies complaints. ROS negative. 05/08: hgb stable, but remains low. borderline hypotension overnight. dark tarry bowel movement today which was Guiac+. has history of occult GI bleeding: will need to have GI evaluate. 05/09: doing well. hgb stable. patient states she "feels like her colitis is back ". still has dark tarry stools. GI has been consulted. denies other complaints. ROS negative. Objective Vital Signs / I&O: Vital Signs 05/08/18 09:50 05/08/18 11:00 12/02/18 12:00 Temperature 36.7 C Pulse Rate 75 Respiratory Rate 18 18 Blood Pressure 146/65 H Pulse Oximetry 100 99 05/08/18 15:00 05/08/18 16:00 05/08/18 19:56 Temperature 36.7 C Pulse Rate 74 Respiratory Rate 18 Blood Pressure 140/65 Pulse Oximetry 99 100 97 05/08/18 20:00 05/09/18 00:00 05/09/18 03:00 Temperature 36.8 C 36.9 C Pulse Rate 81 78 74 Respiratory Rate 18 16 16 Blood Pressure 158/72 H 131/58 L 144/65 H Pulse Oximetry 94 L 93 L 94 L 05/09/18 04:00 05/09/18 07:00 05/09/18 08:00 Temperature 37.0 C Pulse Rate 73 Respiratory Rate 18 Blood Pressure 114/49 L Pulse Oximetry 94 L 97 96 Intake & Output 05/08/18 05/09/18 05/09/18 18:59 06:59 18:59 Intake Total 960 / 960 600 / 600 Output Total 1600 / 1600 800 / 800 Balance -640 / -640 -200 / -200 Weight 90 kg Intake: Oral 960 / 960 600 / 600 Output: Urine 1600 / 1600 800 / 800 Other: Date of Last Bowel Movement 05/08/18 05/08/18 05/08/18 # Bowel Movements 0 Result Diagrams: 05/09/18 03:40 05/09/18 03:40 Objective Remarks: GENERAL: Frail elderly female, sitting in bed, no acute distress. HEENT: Normocephalic. Atraumatic. Pupils equal, round, reactive, conjugate. Mucous membranes are moist NECK: Trachea is midline. There is no JVD. CHEST: unlabored. equal chest rise. nc o2. CARDIOVASCULAR: normal rate, regular rhythm. sinus. ABDOMEN: Soft, nontender, nondistended. No guarding. MUSCULOSKELETAL: Right groin with stable hematoma. mild tenderness which is stable. distal LE pulses are Dopplerable. NEUROLOGICAL: RASS 0. awake, alert. follows commands. moves all extremities. no focal deficits. Assessment and Plan - Assessment and Plan Plan: Assessment: 68-year-old female postop day 5 status post transcatheter aortic valve placement comp located by right retroperitoneal bleed and now postop day 5 status post emergent bring back and endovascular stenting for repair of right common femoral artery bleeding. would appreciate GI seeing patient-- would feel more comfortable with thorough GI work-up while inpatient before discharge to the outpatient setting. S/p TAVR 05/04 via groin access - plavix 75mg po daily - frequent neurovascular checks - frequent groin checks - OOB Acute Anemia secondary to acute blood loss superimposed on Chronic microcytic anemia- stable - transfuse to keep hgb > 7 - daily cbc Right retroperitoneal hematoma Hemorrhagic shock- resolved - s/p bringback to OR with endovascular stenting 05/04 - now hemodynamically stable - trend H&H - keep hgb > 7 - frequent groin checks - frequent neurovascular checks in the LEs - anticoagulation discussion above - Dr. Harden consulted and following Hypertension - goal sbp < 180 - add back antihypertensives as needed Congestive Heart Failure secondary to valvulopathy - hold off on additional lasix today. Hyperlipidemia - home statin Bipolar disorder - home neuroleptics History of prior GI bleeding ?current GI bleed - iv BID PPI. - consult GI - would prefer thorough GI work-up while inpatient before we send her home. - bowel movement yesterday which was dark and tarry- GUIAC+. severe COPD - nebs - aggressive pulmonary toilet - OOB with PT - wean o2 for goal spo2 > 90% advance diet as tolerated. SCDs AM CBC, BMP I think she can be safely transferred out of ICU today. Critical care medicine will sign off. please re-consult as needed.
--- NOTE | 2018-05-09 11:52 | P.PNCV ---
- Note Subjective/Hospital Course: 68-year-old female with severe aortic stenosis and severe COPD with FEV1 50% of predicted who presents for transcatheter aortic valve replacement. She underwent her transcatheter aortic valve replacement under general anesthesia via common iliac access. The placement of the valve was uncomplicated and intraoperative echocardiogram demonstrated no perivalvular leak and good placement. Immediately postoperatively she was extubated and taken to CVICU where she was acutely hypotensive, unstable with new severe right flank pain. She immediately went down for emergent noncontrasted CT abdomen pelvis which demonstrated large fluid collection in the right retroperitoneum. Dr. aHrden the on-call vascular surgeon was consulted and she was brought the patient emergently to the operating room for endovascular femoral stenting. PMH : Anemia (Microcytic anemia consistent with iron deficiency anemia. history of recurrent occult GI bleed. She has extensive GI workup which did not localize the source of bleed. received periodic transfusion and iron infusion, Anxiety, Arthritis, Chronic Obstructive Pulmonary Disease, Colitis, Diverticulitis, Heart Disease Cancer in 2006 procedures : 05/04 TAVR Retroperitoneal hematoma, iliac artery injury after TAVR./ Dr Harden PROCEDURE PERFORMED: 1. Ultrasound-guided access to right common femoral artery. 2. Iliac angiogram. 3. Intravascular ultrasound of common iliac artery and external iliac artery. 4. Stent placement of iliac artery with an 8 x 50 Viabahn. 5. Right common femoral artery Angio-Seal (8-Korean). echo: 05/05 CONCLUSIONS The left ventricular systolic function is hyperdynamic with an estimated ejection fraction in the range of 65- 70%. Normal left ventricular size. Wall thickness is normal. No regional wall motion abnormalities are present. The aortic valve is not well visualized. No perivalvular leak Aortic valve area is 1.4 cm. Aortic valve mean gradient is 17 mmHg. The pulmonary valve is not well visualized. 05/05 pt doing well , dressing to both groin sites intermittent right flank pain Intermittent intraventricular conduction delay, eval by Dr Howard Will monitor another 24 hours. We will then make a decision on potential loop recorder versus permanent pacemaker 05/07 Clinical and hemodynamic is stable Monitoring CBC Continue with incentive spirometry 05/08 Doing well On aspirin and Plavix for her bioprosthetic valve Transfer to stepdown when okay with others 05/09 HGB stable at 8.1/ heme + stool / hx of colitis await GI eval remains in NSR / on 02 at 2 liters Objective: Vital Signs - 24 hr 05/08/18 12:00 05/08/18 15:00 05/08/18 16:00 Temperature 98.1 F Pulse Rate 74 Respiratory Rate 18 Blood Pressure 140/65 Pulse Oximetry 99 99 100 05/08/18 19:56 05/08/18 20:00 05/09/18 00:00 Temperature 98.2 F Pulse Rate 81 78 Respiratory Rate 18 16 Blood Pressure 158/72 H 131/58 L Pulse Oximetry 97 94 L 93 L 05/09/18 03:00 05/09/18 04:00 05/09/18 07:00 Temperature 98.4 F 98.6 F Pulse Rate 74 73 Respiratory Rate 16 18 Blood Pressure 144/65 H 114/49 L Pulse Oximetry 94 L 94 L 97 05/09/18 08:00 Temperature Pulse Rate Respiratory Rate Blood Pressure Pulse Oximetry 96 GENERAL: A&O x 3 SKIN: Warm and dry. HEAD: Normocephalic. EYES: No scleral icterus. No injection or drainage. NECK: Supple, trachea midline. No JVD or lymphadenopathy. CARDIOVASCULAR: Regular rate and rhythm without murmurs, gallops, or rubs. RESPIRATORY: Breath sounds equal bilaterally. No accessory muscle use. GASTROINTESTINAL: Abdomen soft, non-tender, nondistended. MUSCULOSKELETAL: No cyanosis, or edema. BACK: Nontender without obvious deformity. No CVA tenderness. Labs: Laboratory Results - last 12 hr 05/09/18 05/09/18 03:40 03:40 WBC 5.3 RBC 2.69 L Hgb 8.1 L Hct 23.8 L MCV 88.7 MCH 30.1 MCHC 34.0 RDW 15.1 Plt Count 146 L MPV 7.5 Sodium 135 L Potassium 4.0 Chloride 97 L Carbon Dioxide 32.0 Anion Gap 6 BUN 11 Creatinine 0.78 Estimated GFR 73 L Random Glucose 106 Calcium 7.9 L Phosphorus 3.9 Magnesium 2.1 Result Diagrams: 05/09/18 03:40 05/09/18 03:40 - Plan (3) S/P TAVR (transcatheter aortic valve replacement) Plan: on ASA , plavix post retro peritoneal hemorrhage HGB 8.1, on iron post Stent placement of iliac artery with an 8 x 50 Viabahn. post intermittent intraventricular conduction delay eval for another 24 hrs to eval need for LOOP recorder vs permanent pacer / possible EP study on Wednesday HGB 8.1> 5.8> 8.1 S/P 2 units PRBC / discussed with CCM note pt has hx of GI bleed, chronic anemia received one unit of PRBC prior to surgery await GI eval will see prn
--- NOTE | 2018-05-09 12:21 | P.CONGI ---
History of Present Illness Consult date: 05/09/18 Consult reason: History of GI bleed Occult positive stool sample Anemia Chief complaint: TAVR History of Present Illness: This patient is a 68-year-old female who presented to the emergency room at [facility] for worsening shortness of breath. Patient has a history of diastolic congestive heart failure, hypertension, hyperlipidemia and oxygen dependent COPD. Patient also has a history of coronary artery disease. During this hospitalization, patient underwent cardiac catheterization with transcatheter aortic valve replacement. Patient is currently on aspirin and Plavix. Our service has been consulted to evaluate patient for occult positive stool specimen with anemia. Upon consultation, patient reports that she currently sees a necktie stitcher for her anemia. She states that she has had multiple colonoscopies in her home state of [place] before moving to [place]. Patient states that she has had anemia for the last 8 years. In 2017, patient stated she had 4 colonoscopies as well as capsule endoscopy that revealed polyps, fissures and a diverticular bleed. Patient states she has had multiple episodes of diverticulitis and has been told to avoid seeds and nuts. Patient states that she takes MiraLAX daily and does encounter occasional constipation. Of note, patient states that she had not had a BM for 1 week prior to being admitted to the hospital. Patient denies heartburn or difficulty swallowing. Last EGD done in 2017, revealed gastritis. Patient states that she takes acid reflux medication- Protonix twice daily and it controls symptoms well. Patient denies any use of alcohol or tobacco products and denies any known family history for gastrointestinal disorders. Review of Systems All other systems reviewed negative except as stated in HPI PMFSH - History History Provided By: Patient, Family Member, Medical Record - Medical History Medical History: Medical History (Last Reviewed 05/07/18 @ 07:57 by Mendoza Puri, PT) Anemia Aortic stenosis Bipolar disorder Breast cancer CAD (coronary artery disease) CHF (congestive heart failure) COPD (chronic obstructive pulmonary disease) Colitis Depression Diverticulitis Fibroid tumor GI bleed Hypercholesteremia Hypertension Oxygen dependent Port-A-Cath in place - Surgical History Surgical History: Surgical History (Last Reviewed 05/04/18 @ 21:14 by Alvaro Howard MD) History of hip replacement, total History of laminectomy History of lumpectomy of right breast History of tubal ligation Hx of cholecystectomy - Family History Family History: Family History (Last Updated 05/04/18 @ 21:14 by Alvaro Howard MD) Other Family history non-contributory - Tobacco History Second Hand Smoke Exposure: No Smoking Status: Former smoker Tobacco Type: Cigarettes - Alcohol History How Often Do You Have a Drink Containing Alcohol: 2 to 3 times a week - Substance Use History Substance History: No History of Abuse Medications and Allergies Active Medications: Active Medications Albuterol (Duoneb Neb (Prn)) 1 ampul NEB Q2HR NEB PRN PRN Reason: WHEEZING Aspirin (Aspirin Chew) 81 mg PO DAILY [facility] Last Admin: 05/09/18 08:45 Dose: 81 mg Atorvastatin Calcium (Lipitor) 40 mg PO DAILY [facility] Last Admin: 05/09/18 08:44 Dose: 40 mg Benzocaine/Menthol (Chloraseptic Sore Throat Lozenge) 1 lozenge BUCCAL UNSCH PRN PRN Reason: SORE THROAT Last Admin: 05/07/18 12:58 Dose: 1 lozenge Cetirizine HCl (Zyrtec) 10 mg PO DAILY [facility] Last Admin: 05/09/18 08:45 Dose: 10 mg Clonidine HCl (Catapres) 0.2 mg PO Q6H PRN PRN Reason: SBP > 160 mmHg Last Admin: 05/09/18 11:59 Dose: 0.2 mg Clopidogrel Bisulfate (Plavix) 75 mg PO DAILY [facility] Last Admin: 05/09/18 08:45 Dose: 75 mg Ferrous Sulfate (Ferosul) 325 mg PO BID [facility] Last Admin: 05/09/18 08:45 Dose: 325 mg Hydralazine HCl (Apresoline Inj) 10 mg IV.PUSH Q30M PRN PRN Reason: SBP > 160 mmHg Last Admin: 05/06/18 20:00 Dose: 10 mg Magnesium Sulfate 4 gm/ Sodium (Chloride) 100 mls @ 50 mls/hr IV.SIG UNSCH PRN PRN Reason: For Magnesium 0.9 - 1.1 mg/dL Magnesium Sulfate 2 gm/ Sodium (Chloride) 100 mls @ 50 mls/hr IV.SIG UNSCH PRN PRN Reason: For Magnesium 1.2 - 1.6 mg/dL Potassium Chloride (Kcl 40 Meq Premix Inj) 40 meq in 100 mls @ 25 mls/hr IV.SIG Q2H PRN PRN Reason: For Potassium 2.8 - 3.2 mEq/L Potassium Chloride (Kcl 20 Meq Premix Inj) 20 meq in 100 mls @ 50 mls/hr IV.SIG Q2H PRN PRN Reason: For Potassium 3.3 - 3.5 mEq/L Potassium Chloride (Kcl 40 Meq Premix Inj) 40 meq in 100 mls @ 25 mls/hr IV.SIG UNSCH PRN PRN Reason: For Potassium 3.3 - 3.5 mEq/L Potassium Chloride (Kcl 20 Meq Premix Inj) 20 meq in 100 mls @ 50 mls/hr IV.SIG Q2H PRN PRN Reason: For Potassium 2.8 - 3.2 mEq/L Potassium Phosphate 30 mmol/ (Sodium Chloride) 260 mls @ 42 mls/hr IV.SIG UNSCH PRN PRN Reason: SEE LABEL COMMENTS Sodium Phosphate 30 mmol/ (Sodium Chloride) 260 mls @ 42 mls/hr IV.SIG UNSCH PRN PRN Reason: For Phosphorus < 2.5 mg/dL Lamotrigine (Lamictal) 150 mg PO BID [facility] Last Admin: 05/09/18 08:45 Dose: 150 mg Lisinopril (Prinivil) 20 mg PO DAILY [facility] Last Admin: 05/09/18 08:45 Dose: 20 mg Magnesium Oxide (Mag-Ox) 800 mg PO UNSCH PRN PRN Reason: For Magnesium 1.2 - 1.6 mg/dL Melatonin (Melatonin) 10 mg PO HS PRN PRN Reason: INSOMNIA Last Admin: 05/08/18 22:21 Dose: 10 mg Miscellaneous (Pill Splitter) 1 each OTHER UNSCH PRN PRN Reason: SEE LABEL COMMENTS Last Admin: 05/07/18 20:09 Dose: 1 each Montelukast Sodium (Singulair) 10 mg PO [facility] Last Admin: 05/08/18 22:21 Dose: 10 mg Multivitamins (Theragran) 1 tab PO DAILY [facility] Last Admin: 05/09/18 08:44 Dose: 1 tab Oxcarbazepine (Trileptal) 150 mg PO BID [facility] Last Admin: 05/09/18 08:45 Dose: 150 mg Oxycodone/Acetaminophen (Percocet 5/325 Mg) 1 tab PO Q6H PRN PRN Reason: PAIN SCALE 3 TO 5 Last Admin: 05/09/18 12:03 Dose: 1 tab Pantoprazole Sodium (Protonix Inj) 40 mg IV.PUSH Q12H [facility] Last Admin: 05/09/18 06:35 Dose: 40 mg Polyethylene Glycol (Miralax) 17 gm PO DAILY PRN PRN Reason: Constipation Last Admin: 05/08/18 08:20 Dose: 17 gm Potassium Bicarb/Potassium Chloride (K-Lyte Cl Eff) 50 meq PO UNSCH PRN PRN Reason: For Potassium 3.3 - 3.5 mEq/L Potassium Phosphate (K-Phos Original) 2,000 mg PO Q4H PRN PRN Reason: Phosphorus Less Than 2.5 mg/dL Potassium Phosphate (K-Phos Original) 2,000 mg PO UNSCH PRN PRN Reason: SEE LABEL COMMENTS Primidone (Mysoline) 100 mg PO BID [facility] Last Admin: 05/09/18 08:44 Dose: 100 mg Quetiapine Fumarate (Seroquel) 600 mg PO HS [facility] Last Admin: 05/08/18 22:20 Dose: 600 mg Simethicone (Mylicon Chew) 80 mg PO Q6H PRN PRN Reason: GAS RETENTION Last Admin: 05/08/18 22:21 Dose: 80 mg Sodium Chloride (Ns Flush) 2 ml IV.FLUSH BID [facility] Last Admin: 05/09/18 08:46 Dose: 2 ml Sodium Chloride (Ns Flush) 2 ml IV.FLUSH PRN PRN PRN Reason: FLUSH AFTER USING IV ACCESS Umeclidinium/Vilanterol (Anoro-Ellipta 62.5/25 Mcg Inh) 1 inhalation INH Q24H [facility] Last Admin: 05/08/18 22:38 Dose: 1 inhalation Allergies Allergy/AdvReac Type Severity Reaction Status Date / Time diatrizoate meglumine Allergy Severe Anaphylaxis Verified 04/19/18 08:35 gadobenic acid Allergy Severe Anaphylaxis Verified 04/19/18 08:35 gadodiamide Allergy Severe Anaphylaxis Verified 04/19/18 08:35 gadoteridol Allergy Severe Anaphylaxis Verified 04/19/18 08:35 iodixanol Allergy Severe Anaphylaxis Verified 04/19/18 08:35 iohexol Allergy Severe Anaphylaxis Verified 04/19/18 08:35 Home Medications Medication Instructions Recorded Confirmed Type amlodipine [Norvasc] 10 mg PO DAILY 12/21/17 05/04/18 History carvedilol [Coreg] 25 mg PO BID 12/21/17 05/04/18 History cetirizine [Zyrtec] 10 mg PO DAILY 12/21/17 05/04/18 History guaifenesin [Mucinex] 600 mg PO Q12H 12/21/17 05/04/18 History lamotrigine [Lamictal] 150 mg PO BID 12/21/17 05/04/18 History lisinopril 20 mg PO DAILY 12/21/17 05/04/18 History melatonin 10 mg PO HS PRN 12/21/17 05/04/18 History montelukast [Singulair] 10 mg PO QPM 12/21/17 05/04/18 History pantoprazole [Protonix] 40 mg PO DAILY 12/21/17 05/04/18 History primidone 100 mg PO BID 12/21/17 05/04/18 History quetiapine [Seroquel] 600 mg PO DAILY 12/21/17 05/04/18 History albuterol sulfate [Ventolin HFA] 2 puff INHALATION Q6H PRN 03/15/18 05/04/18 History atorvastatin 40 mg PO DAILY 03/15/18 05/04/18 History clonidine HCl 0.1 mg PO DAILY PRN 03/15/18 05/04/18 History magnesium 250 mg PO DAILY 03/15/18 05/04/18 History multivitamin 1 tab PO DAILY 03/15/18 05/04/18 History polyethylene glycol 3350 [Miralax] 17 g PO DAILY PRN 03/15/18 05/04/18 History umeclidinium-vilanterol [Anoro 1 inh INHALATION Q24H 03/15/18 05/04/18 History Ellipta] oxcarbazepine [Trileptal] 150 mg PO BID 04/19/18 05/04/18 History Exam Vital signs: Vital Signs 05/08/18 15:00 05/08/18 16:00 05/08/18 19:56 Temperature 98.1 F Pulse Rate 74 Respiratory Rate 18 Blood Pressure 140/65 Pulse Oximetry 99 100 97 05/08/18 20:00 05/09/18 00:00 05/09/18 03:00 Temperature 98.2 F 98.4 F Pulse Rate 81 78 74 Respiratory Rate 18 16 16 Blood Pressure 158/72 H 131/58 L 144/65 H Pulse Oximetry 94 L 93 L 94 L 05/09/18 04:00 05/09/18 07:00 05/09/18 08:00 Temperature 98.6 F Pulse Rate 73 Respiratory Rate 18 Blood Pressure 114/49 L Pulse Oximetry 94 L 97 96 Intake & Output 05/08/18 05/09/18 05/09/18 18:59 06:59 18:59 Intake Total 960 / 960 600 / 600 50 / 50 Output Total 1600 / 1600 800 / 800 800 / 800 Balance -640 / -640 -200 / -200 -750 / -750 Weight 90 kg Intake: Oral 960 / 960 600 / 600 50 / 50 Output: Urine 1600 / 1600 800 / 800 800 / 800 Other: Date of Last Bowel Movement 05/08/18 05/08/18 05/08/18 # Bowel Movements 0 - Constitutional no acute distress, chronically ill appearing - Routine HEENT Exam Head: Present: normocephalic - Routine Respiratory Exam Present: CTA bilaterally. Absent: accessory muscle use - Routine Cardiovascular Exam Present: RRR - Routine Abdominal Exam Present: soft, normoactive bowel sounds. Absent: tenderness, distended, guarding, firm - Routine Extremities Exam Present: pulses intact - Routine Skin Exam Present: dry, warm - Routine Neurological Exam Present: alert - Routine Psychiatric Exam Present: normal affect, cooperative Results - Labs CBC & Chem 7: 05/09/18 03:40 05/09/18 03:40 Labs: Laboratory Results - last 24 hr 05/09/18 05/09/18 03:40 03:40 WBC 5.3 RBC 2.69 L Hgb 8.1 L Hct 23.8 L MCV 88.7 MCH 30.1 MCHC 34.0 RDW 15.1 Plt Count 146 L MPV 7.5 Sodium 135 L Potassium 4.0 Chloride 97 L Carbon Dioxide 32.0 Anion Gap 6 BUN 11 Creatinine 0.78 Estimated GFR 73 L Random Glucose 106 Calcium 7.9 L Phosphorus 3.9 Magnesium 2.1 Assessment and Plan (1) Acute GI bleeding Status: Acute Code(s): K92.2 - Gastrointestinal hemorrhage, unspecified - Plan This patient is a 68-year-old female who presented to the emergency room at [facility] for worsening shortness of breath. Patient has a history of diastolic congestive heart failure, hypertension, hyperlipidemia and oxygen dependent COPD. Patient also has a history of coronary artery disease. During this hospitalization, patient underwent cardiac catheterization with transcatheter aortic valve replacement. Patient is currently on aspirin and Plavix. Our service has been consulted to evaluate patient for occult positive stool specimen with anemia. Upon consultation, patient reports that she currently sees a necktie stitcher for her anemia. She states that she has had multiple colonoscopies in her home state of [place] before moving to [place]. Patient states that she has had anemia for the last 8 years. In 2017, patient stated she had 4 colonoscopies as well as capsule endoscopy that revealed polyps, fissures and a diverticular bleed. Patient states she has had multiple episodes of diverticulitis and has been told to avoid seeds and nuts. Patient states that she takes MiraLAX daily and does encounter occasional constipation. Of note, patient states that she had not had a BM for 1 week prior to being admitted to the hospital. Patient denies heartburn or difficulty swallowing. Last EGD done in 2016, revealed gastritis. Patient states that she takes acid reflux medication- Protonix twice daily and it controls symptoms well. Patient denies any use of alcohol or tobacco products and denies any known family history for gastrointestinal disorders. GI bleed Anemia Occult positive stool sample Patient presents to ER with increasing shortness of breath. History of congestive heart failure and COPD. Patient underwent transcatheter aortic valve replacement 5 days ago. After which there was a large retroperitoneal hematoma present. Upon admission, hemoglobin 5.8 hematocrit 17.0. Patient currently on aspirin and Plavix. 05/09/2018 hemoglobin 8.1 hematocrit 23.8 Patient endorses history of anemia for 8 years. States multiple colonoscopies with capsule endoscopy. Diagnosed with diverticular bleed in home [facility]. History of diverticulitis and occasional constipation on MiraLAX. Plan -Diet as tolerated -Conservative medical management -Bleeding scan if hemoglobin drops -Monitor for bleeding -Monitor hemoglobin and hematocrit closely -Transfuses as needed -As per Dr. Metz, Patient to follow up at [facility] post discharge for further evaluation of anemia -Continue PPI -Bowel regimen -Supportive care -Further recommendations to follow This patient has been seen by myself and and this note is written on his behalf - Attending Attestation Dr. Metz
--- NOTE | 2018-05-09 12:23 | P.PNCA ---
Subjective Interval history: eating lunch no active complaints Medications and Allergies Active Medications: Active Medications Albuterol (Duoneb Neb (Prn)) 1 ampul NEB Q2HR NEB PRN PRN Reason: WHEEZING Aspirin (Aspirin Chew) 81 mg PO DAILY [facility] Last Admin: 05/09/18 08:45 Dose: 81 mg Atorvastatin Calcium (Lipitor) 40 mg PO DAILY [facility] Last Admin: 05/09/18 08:44 Dose: 40 mg Benzocaine/Menthol (Chloraseptic Sore Throat Lozenge) 1 lozenge BUCCAL UNSCH PRN PRN Reason: SORE THROAT Last Admin: 05/07/18 12:58 Dose: 1 lozenge Cetirizine HCl (Zyrtec) 10 mg PO DAILY [facility] Last Admin: 05/09/18 08:45 Dose: 10 mg Clonidine HCl (Catapres) 0.2 mg PO Q6H PRN PRN Reason: SBP > 160 mmHg Last Admin: 05/09/18 11:59 Dose: 0.2 mg Clopidogrel Bisulfate (Plavix) 75 mg PO DAILY [facility] Last Admin: 05/09/18 08:45 Dose: 75 mg Ferrous Sulfate (Ferosul) 325 mg PO BID [facility] Last Admin: 05/09/18 08:45 Dose: 325 mg Hydralazine HCl (Apresoline Inj) 10 mg IV.PUSH Q30M PRN PRN Reason: SBP > 160 mmHg Last Admin: 05/06/18 20:00 Dose: 10 mg Magnesium Sulfate 4 gm/ Sodium (Chloride) 100 mls @ 50 mls/hr IV.SIG UNSCH PRN PRN Reason: For Magnesium 0.9 - 1.1 mg/dL Magnesium Sulfate 2 gm/ Sodium (Chloride) 100 mls @ 50 mls/hr IV.SIG UNSCH PRN PRN Reason: For Magnesium 1.2 - 1.6 mg/dL Potassium Chloride (Kcl 40 Meq Premix Inj) 40 meq in 100 mls @ 25 mls/hr IV.SIG Q2H PRN PRN Reason: For Potassium 2.8 - 3.2 mEq/L Potassium Chloride (Kcl 20 Meq Premix Inj) 20 meq in 100 mls @ 50 mls/hr IV.SIG Q2H PRN PRN Reason: For Potassium 3.3 - 3.5 mEq/L Potassium Chloride (Kcl 40 Meq Premix Inj) 40 meq in 100 mls @ 25 mls/hr IV.SIG UNSCH PRN PRN Reason: For Potassium 3.3 - 3.5 mEq/L Potassium Chloride (Kcl 20 Meq Premix Inj) 20 meq in 100 mls @ 50 mls/hr IV.SIG Q2H PRN PRN Reason: For Potassium 2.8 - 3.2 mEq/L Potassium Phosphate 30 mmol/ (Sodium Chloride) 260 mls @ 42 mls/hr IV.SIG UNSCH PRN PRN Reason: SEE LABEL COMMENTS Sodium Phosphate 30 mmol/ (Sodium Chloride) 260 mls @ 42 mls/hr IV.SIG UNSCH PRN PRN Reason: For Phosphorus < 2.5 mg/dL Lamotrigine (Lamictal) 150 mg PO BID [facility] Last Admin: 05/09/18 08:45 Dose: 150 mg Lisinopril (Prinivil) 20 mg PO DAILY [facility] Last Admin: 05/09/18 08:45 Dose: 20 mg Magnesium Oxide (Mag-Ox) 800 mg PO UNSCH PRN PRN Reason: For Magnesium 1.2 - 1.6 mg/dL Melatonin (Melatonin) 10 mg PO HS PRN PRN Reason: INSOMNIA Last Admin: 05/08/18 22:21 Dose: 10 mg Miscellaneous (Pill Splitter) 1 each OTHER UNSCH PRN PRN Reason: SEE LABEL COMMENTS Last Admin: 05/07/18 20:09 Dose: 1 each Montelukast Sodium (Singulair) 10 mg PO HS [facility] Last Admin: 05/08/18 22:21 Dose: 10 mg Multivitamins (Theragran) 1 tab PO DAILY [facility] Last Admin: 05/09/18 08:44 Dose: 1 tab Oxcarbazepine (Trileptal) 150 mg PO BID [facility] Last Admin: 05/09/18 08:45 Dose: 150 mg Oxycodone/Acetaminophen (Percocet 5/325 Mg) 1 tab PO Q4H PRN PRN Reason: PAIN SCALE 3 TO 5 Pantoprazole Sodium (Protonix Inj) 40 mg IV.PUSH Q12H [facility] Last Admin: 05/09/18 06:35 Dose: 40 mg Polyethylene Glycol (Miralax) 17 gm PO DAILY PRN PRN Reason: Constipation Last Admin: 05/08/18 08:20 Dose: 17 gm Potassium Bicarb/Potassium Chloride (K-Lyte Cl Eff) 50 meq PO UNSCH PRN PRN Reason: For Potassium 3.3 - 3.5 mEq/L Potassium Phosphate (K-Phos Original) 2,000 mg PO Q4H PRN PRN Reason: Phosphorus Less Than 2.5 mg/dL Potassium Phosphate (K-Phos Original) 2,000 mg PO UNSCH PRN PRN Reason: SEE LABEL COMMENTS Primidone (Mysoline) 100 mg PO BID [facility] Last Admin: 05/09/18 08:44 Dose: 100 mg Quetiapine Fumarate (Seroquel) 600 mg PO HS [facility] Last Admin: 05/08/18 22:20 Dose: 600 mg Simethicone (Mylicon Chew) 80 mg PO Q6H PRN PRN Reason: GAS RETENTION Last Admin: 05/08/18 22:21 Dose: 80 mg Sodium Chloride (Ns Flush) 2 ml IV.FLUSH BID [facility] Last Admin: 05/09/18 08:46 Dose: 2 ml Sodium Chloride (Ns Flush) 2 ml IV.FLUSH PRN PRN PRN Reason: FLUSH AFTER USING IV ACCESS Umeclidinium/Vilanterol (Anoro-Ellipta 62.5/25 Mcg Inh) 1 inhalation INH Q24H [facility] Last Admin: 05/08/18 22:38 Dose: 1 inhalation Allergies Allergy/AdvReac Type Severity Reaction Status Date / Time diatrizoate meglumine Allergy Severe Anaphylaxis Verified 04/19/18 08:35 gadobenic acid Allergy Severe Anaphylaxis Verified 04/19/18 08:35 gadodiamide Allergy Severe Anaphylaxis Verified 04/19/18 08:35 gadoteridol Allergy Severe Anaphylaxis Verified 04/19/18 08:35 iodixanol Allergy Severe Anaphylaxis Verified 04/19/18 08:35 iohexol Allergy Severe Anaphylaxis Verified 04/19/18 08:35 Home Medications Medication Instructions Recorded Confirmed Type amlodipine [Norvasc] 10 mg PO DAILY 12/21/17 05/04/18 History carvedilol [Coreg] 25 mg PO BID 12/21/17 05/04/18 History cetirizine [Zyrtec] 10 mg PO DAILY 12/21/17 05/04/18 History guaifenesin [Mucinex] 600 mg PO Q12H 12/21/17 05/04/18 History lamotrigine [Lamictal] 150 mg PO BID 12/21/17 05/04/18 History lisinopril 20 mg PO DAILY 12/21/17 05/04/18 History melatonin 10 mg PO HS PRN 12/21/17 05/04/18 History montelukast [Singulair] 10 mg PO QPM 12/21/17 05/04/18 History pantoprazole [Protonix] 40 mg PO DAILY 12/21/17 05/04/18 History primidone 100 mg PO BID 12/21/17 05/04/18 History quetiapine [Seroquel] 600 mg PO DAILY 12/21/17 05/04/18 History albuterol sulfate [Ventolin HFA] 2 puff INHALATION Q6H PRN 03/15/18 05/04/18 History atorvastatin 40 mg PO DAILY 03/15/18 05/04/18 History clonidine HCl 0.1 mg PO DAILY PRN 03/15/18 05/04/18 History magnesium 250 mg PO DAILY 03/15/18 05/04/18 History multivitamin 1 tab PO DAILY 03/15/18 05/04/18 History polyethylene glycol 3350 [Miralax] 17 g PO DAILY PRN 03/15/18 05/04/18 History umeclidinium-vilanterol [Anoro 1 inh INHALATION Q24H 03/15/18 05/04/18 History Ellipta] oxcarbazepine [Trileptal] 150 mg PO BID 04/19/18 05/04/18 History Physical Exam Vital signs: Vital Signs 05/08/18 15:00 05/08/18 16:00 05/08/18 19:56 Temperature 98.1 F Pulse Rate 74 Respiratory Rate 18 Blood Pressure 140/65 Pulse Oximetry 99 100 97 05/08/18 20:00 05/09/18 00:00 05/09/18 03:00 Temperature 98.2 F 98.4 F Pulse Rate 81 78 74 Respiratory Rate 18 16 16 Blood Pressure 158/72 H 131/58 L 144/65 H Pulse Oximetry 94 L 93 L 94 L 05/09/18 04:00 05/09/18 07:00 05/09/18 08:00 Temperature 98.6 F Pulse Rate 73 Respiratory Rate 18 Blood Pressure 114/49 L Pulse Oximetry 94 L 97 96 Intake & Output 05/08/18 05/09/18 05/09/18 18:59 06:59 18:59 Intake Total 960 / 960 600 / 600 50 / 50 Output Total 1600 / 1600 800 / 800 800 / 800 Balance -640 / -640 -200 / -200 -750 / -750 Weight 90 kg Intake: Oral 960 / 960 600 / 600 50 / 50 Output: Urine 1600 / 1600 800 / 800 800 / 800 Other: Date of Last Bowel Movement 05/08/18 05/08/18 05/08/18 # Bowel Movements 0 - Constitutional no acute distress - Routine HEENT Exam Head: Present: normocephalic Eye: Present: EOMI, PERRL ENT: Present: mucous membranes moist - Routine Neck Exam Absent: JVD - Routine Respiratory Exam Present: CTA bilaterally - Routine Cardiovascular Exam Present: RRR, murmur - Routine Abdominal Exam Present: soft, normoactive bowel sounds - Routine Neurological Exam Present: oriented X3, CN II-XII intact. Absent: sensory deficit, motor deficit - Urinary Catheter Management Indwelling Temp Sensing Catheter Cath placed during this visit: yes, but has since been removed by the nurse Reason for continuing: Decision to DC catheter Insertion date: 05/04/18 Insertion time: 14:29 Removal date: 05/05/18 Removal time: 11:00 Results 05/09/18 03:40 05/09/18 03:40 CBC 05/07/18 05/08/18 05/09/18 Range/Units 12:30 04:03 03:40 WBC 5.7 5.3 (4.0-11.0) th/mm3 RBC 2.51 L 2.69 L (4.00-5.30) mil/mm3 Hgb 7.8 L 7.6 L 8.1 L (11.6-15.3) gm/dL Hct 23.4 L 22.3 L 23.8 L (35.0-46.0) % Plt Count 124 L 146 L (150-450) th/mm3 Comprehensive Metabolic Panel 05/08/18 05/09/18 Range/Units 04:03 03:40 Sodium 134 L 135 L (136-145) meq/L Potassium 4.0 4.0 (3.5-5.1) meq/L Chloride 96 L 97 L (98-107) meq/L Carbon Dioxide 31.6 32.0 (21.0-32.0) meq/L BUN 15 11 (7-18) mg/dL Creatinine 1.10 H 0.78 (0.50-1.00) mg/dL Calcium 7.7 L 7.9 L (8.5-10.1) mg/dL Intake and Output 05/08/18 05/09/18 05/09/18 22:59 06:59 14:59 Intake Total 960 / 960 600 / 600 50 / 50 Output Total 1600 / 1600 800 / 800 800 / 800 Balance -640 / -640 -200 / -200 -750 / -750 Intake: Oral 960 / 960 600 / 600 50 / 50 Output: Urine 1600 / 1600 800 / 800 800 / 800 Other: Date of Last Bowel Movement 05/01/18 05/08/18 05/08/18 # Bowel Movements 0 Weight 90 kg Assessment and Plan - Assessment (1) Severe aortic valve stenosis Code(s): I35.0 - Nonrheumatic aortic (valve) stenosis Status: Acute (2) Acute on chronic diastolic (congestive) heart failure Code(s): I50.33 - Acute on chronic diastolic (congestive) heart failure Status : Acute (3) Retroperitoneal bleed Code(s): R58 - Hemorrhage, not elsewhere classified Status: Acute - Plan Severe aortic valve stenosis status post transcatheter aortic valve replacement. Doing well. Acute on chronic diastolic congestive heart failure. We will continue gentle diuresis. Monitor creatinine and ins and outs closely. Retroperitoneal bleed. stable. Maintain Hb > 7. Intermittent intraventricular conduction delay. EP to follow. tele benign. EPS vs monitor GI consulted. possible outpatient workup DC planning today if GI and EP agreeable
--- NOTE | 2018-05-09 14:51 | ECG ---
Date Performed: 05/09/2018 Time Performed: 12:49:08 PTAGE: 68 years EKG: Sinus rhythm . Normal ECG Compared to prior electrocardiogram, Left bundle branch block and PVCs are no longer see n. DOCTOR: Jaylan Webber Interpretating Date/Time 05/09/2018 14:51:13
--- NOTE | 2018-05-09 15:46 | P.DCO ---
- Diagnosis (1) Poor venous access Status: Acute (2) Severe aortic valve stenosis Status: Acute (3) Diastolic congestive heart failure Status: Chronic (4) S/P TAVR (transcatheter aortic valve replacement) Status: Acute - Physical Therapy Order: Evaluate and treat - Home Health Nursing Order: Medical education, Signs/symptoms of disease process, Nursing assessment with vital signs - Case Management Consult Case Management Consult-Home Health: Yes - Certification I have seen patient Raisa Retana on 05/09/18. My clinical findings support the need for the requested home health care services because: Deconditioned with increased weakness I certify that my clinical findings support that this patient is homebound because: Post-op weakness
--- NOTE | 2018-05-09 19:24 | P.PN ---
Subjective Interval history: Feeling better Physical Exam Vital signs: Vital Signs 05/08/18 19:56 05/08/18 20:00 05/09/18 00:00 Temperature 98.2 F Pulse Rate 81 78 Respiratory Rate 18 16 Blood Pressure 158/72 H 131/58 L Pulse Oximetry 97 94 L 93 L 05/09/18 03:00 05/09/18 04:00 05/09/18 07:00 Temperature 98.4 F 98.6 F Pulse Rate 74 73 Respiratory Rate 16 18 Blood Pressure 144/65 H 114/49 L Pulse Oximetry 94 L 94 L 97 05/09/18 08:00 05/09/18 11:00 05/09/18 13:04 Temperature 98.3 F Pulse Rate 85 85 Respiratory Rate 16 Blood Pressure 179/80 H Pulse Oximetry 96 99 05/09/18 13:18 05/09/18 14:04 05/09/18 15:00 Temperature 98.2 F Pulse Rate 76 89 Respiratory Rate 16 Blood Pressure 111/53 L 168/72 H Pulse Oximetry 98 05/09/18 15:04 05/09/18 16:04 05/09/18 17:00 Temperature Pulse Rate 76 78 84 Respiratory Rate Blood Pressure Pulse Oximetry 05/09/18 18:00 Temperature Pulse Rate 78 Respiratory Rate Blood Pressure Pulse Oximetry Intake & Output 05/09/18 05/09/18 05/10/18 06:59 18:59 06:59 Intake Total 600 / 600 410 / 410 Output Total 800 / 800 1460 / 1460 Balance -200 / -200 -1050 / -1050 Weight 90 kg Intake: Oral 600 / 600 410 / 410 Output: Urine 800 / 800 1460 / 1460 Other: # Voids 2 Date of Last Bowel Movement 05/08/18 05/08/18 # Bowel Movements 0 - Constitutional no acute distress - Routine HEENT Exam Head: Present: normocephalic Eye: Present: PERRL ENT: Present: mucous membranes moist - Routine Neck Exam Present: normal carotid upstroke. Absent: supple - Routine Respiratory Exam Present: CTA bilaterally - Routine Cardiovascular Exam Present: RRR, S1, S2 - Routine Neurological Exam Present: alert, oriented X3 - Detailed Neurological Exam: Coma Scale Eye Opening: Spontaneous - Urinary Catheter Management Indwelling Temp Sensing Catheter Cath placed during this visit: yes, but has since been removed by the nurse Reason for continuing: Decision to DC catheter Insertion date: 05/04/18 Insertion time: 14:29 Removal date: 05/05/18 Removal time: 11:00 Results - Labs CBC & Chem 7: 05/09/18 03:40 05/09/18 03:40 Laboratory Results - last 24 hr 05/09/18 05/09/18 03:40 03:40 WBC 5.3 RBC 2.69 L Hgb 8.1 L Hct 23.8 L MCV 88.7 MCH 30.1 MCHC 34.0 RDW 15.1 Plt Count 146 L MPV 7.5 Sodium 135 L Potassium 4.0 Chloride 97 L Carbon Dioxide 32.0 Anion Gap 6 BUN 11 Creatinine 0.78 Estimated GFR 73 L Random Glucose 106 Calcium 7.9 L Phosphorus 3.9 Magnesium 2.1 Assessment and Plan - Assessment (1) AV block Code(s): I44.30 - Unspecified atrioventricular block Status: Acute Plan: In sinus rhythm No BBB in the last 48 hrs Doing well Sinus rhythm No pause Can be DH Follow up as OP if necessary Case discussed with patient Was advised and dizziness or near syncope to reach the nearest ER
[2018-05-09] MEDS: Montelukast 10 MG Tablet PO SCH (20:14)
== END 2018-05-09 21:01 | disposition home or self-care (01) ==
LOC: HCVI 08:26 → HCPC 05-09 09:00
PROVIDERS: ADMIT Internal Medicine; ATTEND Internal Medicine
PROC: TAVRHYB (ICD-10-PCS; 2018-05-04 15:00)
PROC: [UNRECOGNIZED PROCEDURE] (2018-05-04 17:08)